=== PATIENT | female | born 1985 | race Caucasian/White ===

== ENCOUNTER 2023-02-24 04:54 | Outpatient (CLI) | payer MEDICARE, MEDICAID, SELFPAY ==
[2023-02-24 13:45] LABS: Hemoglobin A1C 8.9 % (<5.7)
[2023-02-24 14:04] LABS: ALT 48 U/L (14-59); AST 43 U/L (15-37); Albumin 3.4 g/dL (3.4-5.0); Alkaline Phosphatase 67 U/L (46-116); Anion Gap 8.9 mmol/L (3-11); BUN 14 mg/dL (7-18); Bilirubin, Total 0.4 mg/dL (0.2-1.0); CO2 29.1 mmol/L (21.0-32.0); CREATININE 0.8 mg/dL (0.55-1.02); Calcium 10.7 mg/dL (8.5-10.1); Calculated LDL 153 mg/dL (<100); Chloride 101 mmol/L (98-107); Cholesterol 238 mg/dL (<200); Estimated GFR 96.06 (mL/min/1.73m2); Glucose 89 mg/dL (74-106); HDL Cholesterol 52 mg/dL (40-60); Potassium 3.9 mmol/L (3.5-5.1); Sodium 139 mmol/L (136-145); Total Protein 8.6 g/dL (6.4-8.2); Triglyceride 168 mg/dL (<150)
[2023-02-24 14:21] LABS: FREE T4 1.35 ng/dL (0.76-1.46)
[2023-02-24 15:05] LABS: COMMENT (LAB VIEW ONLY) < 13.00 mg/dL
== END 2023-02-24 04:55 | disposition home or self-care (01) ==
LOC: LBO 04:56
PROVIDERS: Visit Provider Family Medicine
DX: E11.9 Type 2 diabetes mellitus without complications (principal); E78.5 Hyperlipidemia, unspecified
CPT/HCPCS: 36415; 80053; 80061; 82043; 82570; 83036; 84439; 84443

== ENCOUNTER 2023-05-30 04:03 | Outpatient (CLI) | payer MEDICARE, MEDICAID, SELFPAY ==
[2023-05-30 11:14] LABS: Hemoglobin A1C 8.9 % (<5.7)
[2023-05-30 11:22] LABS: ALT 54 U/L (14-59); AST 40 U/L (15-37); Albumin 3.5 g/dL (3.4-5.0); Alkaline Phosphatase 81 U/L (46-116); BUN 15 mg/dL (7-18); Bilirubin, Total 0.5 mg/dL (0.2-1.0); Calcium 9.8 mg/dL (8.5-10.1); Calculated LDL 235 mg/dL (<100); Chloride 101 mmol/L (98-107); Cholesterol 326 mg/dL (<200); Estimated GFR 73.49 (mL/min/1.73m2); Glucose 63 mg/dL (74-106); HDL Cholesterol 56 mg/dL (40-60); Potassium 3.3 mmol/L (3.5-5.1); Sodium 137 mmol/L (136-145); TSH 1.33 uIU/mL (0.36-3.74); Total Protein 8.9 g/dL (6.4-8.2); Triglyceride 179 mg/dL (<150)
[2023-05-30 11:39] LABS: COMMENT (LAB VIEW ONLY) 225.62 mg/dL; Microalb ug/mg Crea 14.8 ug/mg Cr
== END 2023-05-30 04:04 | disposition home or self-care (01) ==
PROVIDERS: PCP Nurse Practitioner; Visit Provider Family Medicine
DX: E11.9 Type 2 diabetes mellitus without complications (principal)
CPT/HCPCS: 36415; 80053; 80061; 82043; 82570; 83036; 84443

== ENCOUNTER → 2023-09-15 03:43 | Outpatient (CLI) | payer MEDICARE, MEDICAID, SELFPAY ==
--- NOTE | 2023-09-15 08:26 | DI.RAD_ITS ---
Exam(s) XR SHOULDER LT COMPLETE 2+V EXAM: XR SHOULDER LT COMPLETE 2+V CLINICAL HISTORY: bilateral shoulder pain,m25.512. TECHNIQUE: 2D digital imaging was performed. COMPARISON: No exams were available for comparison FINDINGS: Five views. No evidence of fracture or dislocation or abnormal soft tissue calcifications. Subacromial space jd ears unremarkable. There are no degenerative changes in the glenohumeral and AC joints. Bone densit y normal. No osseous lesions Clavicle appears unremarkable. IMPRESSION: No significant radiographic findings in the left shoulder. DATA REPOSITORY: RADIATION DOSE DELIVERED:
--- NOTE | 2023-09-15 08:26 | DI.RAD_ITS ---
Exam(s) XR CERVICAL SPINE COMP 4-5V EXAM: XR CERVICAL SPINE COMP 4-5V CLINICAL HISTORY: bilateral shoulder and neck pain,m54.2. TECHNIQUE: 2D digital imaging was performed. COMPARISON: No exams were available for comparison FINDINGS: Six views. No evidence of fracture, listhesis, nor offset of the spinal laminar line. All the disc spaces exhib it normal height. No Luschka joint osteophytes on the oblique views. No cervical ribs. Surgical cl ips are seen in anterior to the trachea, possibly prior thyroid surgery. There appears to be developmental fusion across the facet joints of C2 and C3 levels. IMPRESSION: No significant acute osseous findings in the cervical spine. No disc space narrowing. There appears to be facet joint fusion at C2-C3 level. DATA REPOSITORY: RADIATION DOSE DELIVERED:
--- NOTE | 2023-09-15 08:26 | DI.RAD_ITS ---
Exam(s) XR SHOULDER RT COMPLETE 2+V EXAM: XR SHOULDER RT COMPLETE 2+V CLINICAL HISTORY: bilateral shoulder pain,m25.511. TECHNIQUE: 2D digital imaging was performed. COMPARISON: CR XR SHOULDER LT COMPLETE 2+V from 09/15/2023 FINDINGS: Five views. No evidence of fracture or dislocation or abnormal soft tissue calcifications. Subacromial space jd ears unremarkable. Glenohumeral and AC joints appear unremarkable. No degenerative changes. Clavic le appears unremarkable. IMPRESSION: No significant osseous findings in the right shoulder. DATA REPOSITORY: RADIATION DOSE DELIVERED:
== END ==
PROVIDERS: PCP Nurse Practitioner; Visit Provider Nurse Practitioner
DX: M25.511 Pain in right shoulder (principal); M25.512 Pain in left shoulder; M54.2 Cervicalgia
CPT/HCPCS: 72050; 73030

== ENCOUNTER → 2023-10-20 02:59 | Outpatient (CLI) | payer MEDICARE, MEDICAID, SELFPAY ==
--- NOTE | 2023-10-20 | DI.US_ITS ---
Exam(s) US PELVIS EXAM: US PELVIS CLINICAL HISTORY: ABNL UTERINE BLEEDING, N93.9, VAGINAL BLEEDING. TECHNIQUE: Transabdominal pelvic ultrasound was performed using standard protocol. The patient decl ined the transvaginal portion of the examination. COMPARISON: No exams were available for comparison FINDINGS: Examination limited by patient body habitus. UTERUS: Position: Anteverted. Size: 7.3 long by 3.9 AP by 4.5 transverse cm Endometrium: 0.7 cm. Normal for patient's menstrual status. Myometrium: Unremarkable. Cervix: Unremarkable. OVARIES: Right: 3.4 x 2.4 x 2.9 cm Cyst or mass: No suspicious cystic or solid masses. Left: 2.9 x 2.2 x 3.0 cm Cyst or mass: No suspicious cystic or solid masses. DOPPLER: Color: Symmetric and uniform flow to both ovaries. CUL-DE-SAC: Free fluid: None. Other: None. IMPRESSION: 1. Transabdominal only examination was performed. The patient declined the transvaginal portion of t he examination. 2. Unremarkable uterus within normal endometrial stripe thickness. 3. Unremarkable bilateral ovaries. DATA REPOSITORY:
== END ==
PROVIDERS: PCP Nurse Practitioner; Visit Provider Physician Assistant Medical
DX: N93.8 Other specified abnormal uterine and vaginal bleeding (principal)
CPT/HCPCS: 76856

== ENCOUNTER 2023-10-20 09:37 | Outpatient (CLI) | payer MEDICARE, MEDICAID, SELFPAY ==
[2023-10-20 09:11] LABS: Abs Immature Grans 0.15 10^3/uL (0.0-0.06); Absolute Basophil Count 0.02 10^3/uL (0.0-0.2); Absolute Eosinophil Count 0.11 10^3/uL (0.0-0.7); Absolute Lymphocyte Count 1.74 10^3/uL (1.2-3.4); Basophils % 0.2 %; Eosinophils % 1.2 %; HCT 21.3 % (36.0-46.0); Immature Grans % 1.7 %; Lymphocytes % 19.3 %; MCH 26.2 pg (27.0-33.0); MCHC 30.5 % (32.0-36.0); MCV 86 fL (80-95); MPV 8.7 fL (8.0-11.0); Monocytes % 6.7 %; Neutrophils % 70.9 %; Nucleated RBC 0.8 % (0.0-0.3); Platelet Count 254 10^3/uL (130-400); RBC 2.48 10^6/uL (3.93-5.22); RDW 16.1 % (11.7-14.6); RDW-SD 48.6 fL; WBC 9.02 10^3/uL (4.4-10.8)
[2023-10-20 09:32] LABS: Diff Comment RBC Morph Reviewed; HGB 6.5 g/dL (11.2-15.7)
[2023-10-20 09:33] LABS: Polychromasia Present
== END 2023-10-20 09:38 | disposition home or self-care (01) ==
LOC: LBO 09:39
PROVIDERS: PCP Nurse Practitioner; Visit Provider Physician Assistant Medical
DX: N93.9 Abnormal uterine and vaginal bleeding, unspecified (principal)
CPT/HCPCS: 36415; 76856; 85025

== ENCOUNTER 2023-10-20 16:19 | Observation (INO) | payer MEDICARE, MEDICAID, SELFPAY ==
[2023-10-20] VITALS (49 sets, daily range): BP systolic 105–170; BP diastolic 59–99; PULSE 103–127; RESP 0–20; TEMP 36.6–37.5; O2SAT 96–100
--- NOTE | 2023-10-20 16:45 | W.ED.GENAD ---
Discharge Plan Discharge Details Chief Complaint: [facility] Primary Care Provider: Jessica Tran ED Provider: Aristeo Arvizu Home Meds and New Rx's Prescriptions: No Action cetirizine [Zyrtec] 10 mg tablet 10 mg PO DAILY PRN Humulin R U-500 (Conc) Kwikpen 500 unit/mL (3 mL) insulin pen 70 unit subcut BID bupropion HCl [Wellbutrin XL] 300 mg tablet extended release 24 hr 300 mg PO QAM Qty: 30 6RF doxepin 6 mg tablet 6 mg PO QHS PRN (Reason: sleep) Qty: 30 6RF Rx Instructions: within 30min of bedtime and not within 3 hours of a meal amlodipine 2.5 mg tablet 2.5 mg PO DAILY Qty: 30 6RF levothyroxine [Synthroid] 200 mcg tablet 200 mcg PO DAILY Qty: 30 6RF rosuvastatin 5 mg tablet 5 mg PO DAILY Qty: 30 6RF cholecalciferol (vitamin D3) 1,250 mcg (50,000 unit) capsule 1,250 mcg PO QWEEK Qty: 12 3RF venlafaxine 75 mg capsule,extended release 24hr 75 mg PO QAM Qty: 84 0RF calcium carbonate 200 mg calcium (500 mg) tablet,chewable 200 mg PO PRN (DME) blood pressure test kit-large [[employer] BP Monitor] Kit See Rx Instructions .Route Qty: 1 0RF Rx Instructions: As directed Mounjaro 2.5 mg/0.5 mL pen injector 2.5 mg subcut QWEEK HPI General Date/Time Provider Initiated Documentation: 10/20/23 16:24. HPI Narrative: 38 year old female with a history of RUE thrombus and recently had chronic Eliquis stopped, anxiety, depression, HTN, GERD, hyperlipidemia, LBP, poorly controlled DM2, metabolic syndrome, PCOS, social phobia, history osteomyelitis lumbar vertebra and thyroid neoplasm s/p thyroidectomy presents with weakness and malaise and vaginal bleeding. Unclear exact time course but it sounds like she has had vaginal bleeding for the last 2 weeks. She says she sometimes goes months without getting a period. She actually stopped Eliquis for old right upper extremity DVT just a few weeks ago as well. She had had the heavy bleeding and had weakness and malaise and went to an outside clinic and found to be anemic. Followed up with her primary who ultimately referred her here. She says the bleeding has stopped dramatically but she still having some light spotting. She has lightheadedness and dizziness and general malaise and weakness. No chest pain or shortness of breath. No abdominal pain. No other bleeding. No black or bloody stools. Denies any other complaints. Related Data Home Medications Medication Instructions Recorded Confirmed amlodipine 2.5 mg tablet 2.5 mg PO DAILY #30 tabs 05/05/23 10/20/23 bupropion HCl 300 mg 24 hr tablet, 300 mg PO QAM #30 tabs 05/05/23 10/20/23 extended release (Wellbutrin XL) calcium carbonate 200 mg PO PRN 05/05/23 10/20/23 cetirizine 10 mg tablet (Zyrtec) 10 mg PO DAILY PRN 05/05/23 10/20/23 doxepin 6 mg tablet 6 mg PO QHS PRN sleep #30 tabs 05/05/23 10/20/23 insulin regular hum U-500 conc 500 70 unit subcut BID 05/05/23 10/20/23 unit/mL(3 mL) subcut pen (Humulin R U-500 (Conc) Insulin Kwikpen) levothyroxine 200 mcg tablet 200 mcg PO DAILY #30 tabs 05/05/23 10/20/23 (Synthroid) rosuvastatin 5 mg tablet 5 mg PO DAILY #30 tabs 05/05/23 10/20/23 blood pressure test kit-large #1 ea 08/02/23 10/20/23 ([employer] Blood Pressure Monitor kit) cholecalciferol (vitamin D3) 1,250 1,250 mcg PO QWEEK #12 caps 09/10/23 10/20/23 mcg (50,000 unit) capsule venlafaxine 75 mg capsule,extended 75 mg PO QAM #84 caps 09/11/23 10/20/23 release 24 hr tirzepatide 2.5 mg/0.5 mL 2.5 mg subcut QWEEK 10/20/23 10/20/23 subcutaneous pen injector (Ha) Previous Rx's Medication Instructions Recorded amlodipine 2.5 mg tablet 2.5 mg PO DAILY #30 tabs 05/05/23 bupropion HCl 300 mg 24 hr tablet, 300 mg PO QAM #30 tabs 05/05/23 extended release (Wellbutrin XL) doxepin 6 mg tablet 6 mg PO QHS PRN sleep #30 tabs 05/05/23 levothyroxine 200 mcg tablet 200 mcg PO DAILY #30 tabs 05/05/23 (Synthroid) rosuvastatin 5 mg tablet 5 mg PO DAILY #30 tabs 05/05/23 blood pressure test kit-large #1 ea 08/02/23 ([employer] Blood Pressure Monitor kit) cholecalciferol (vitamin D3) 1,250 1,250 mcg PO QWEEK #12 caps 09/10/23 mcg (50,000 unit) capsule venlafaxine 75 mg capsule,extended 75 mg PO QAM #84 caps 09/11/23 release 24 hr Allergies Allergy/AdvReac Type Severity Reaction Status Date / Time lisinopril Allergy Mild Other (See Verified 10/20/23 16:36 Comment) metformin Allergy Unknown unknown Verified 10/20/23 16:36 General Stated Complaint: [facility] SAHARA: 3 Review of Systems Constitutional Constitutional: Denies chills, Reports fatigue, Denies fever(s), Denies headache(s), Reports malaise and Reports weakness Eyes Eyes: Denies change in vision ENT Ears, Nose, Mouth, and Throat: Denies headache(s) and Denies odynophagia Cardiovascular Cardiovascular: Denies chest pain and Denies dyspnea Respiratory Respiratory: Denies dyspnea Gastrointestinal Gastrointestinal: Denies abdominal pain, Denies diarrhea, Denies nausea, Denies odynophagia and Denies vomiting Genitourinary Genitourinary: Reports abnormal vaginal bleeding, Denies dysuria, Denies pelvic pain, Denies urinary incontinence, Denies urinary hesitancy, Denies urinary urgency and Denies vaginal discharge Musculoskeletal Musculoskeletal: Denies myalgias Integumentary/Breasts Skin/Breast: Denies changing lesions Neurologic Neurologic: Denies behavioral changes, Denies headache(s) and Reports weakness Psychiatric Psychiatric: Denies behavioral changes Endocrine Endocrine: Reports fatigue and Denies heat intolerance Hematologic/Lymphatic Hematologic/Lymphatic: Denies lymphadenopathy Exam Const General: cooperative Nutritional Appearance: average body habitus Orientation: alert, awake and oriented x3 HENMT Head: normal to inspection Ears: external ears normal Mouth: moist mucous membranes Eyes Pupils: PERRL EOM: EOM intact bilaterally and No nystagmus Neck Neck: full ROM and no tracheal deviation Chest Chest: normal inspection of the chest Resp Auscultation: clear to auscultation bilaterally Cardio Rate: regular rate Rhythm: regular rhythm GI Inspection: normal to inspection Palpation: soft, no guarding, not rigid and nontender Back/Spine/Pelvis Back: No no CVA tenderness Thoracic/Lumbar Spine: thoracic and lumbar spine normal to inspection Skin General skin exam: no rashes or lesions noted Neuro General: patient alert, patient awake and patient oriented x3 Cranial Nerves: CN's II-XI intact bilaterally, PERRL and no nystagmus Cognition: normal cognition Motor: muscle tone normal throughout and strength 5/5 throughout Sensory Exam: no sensory deficits noted Extrem General: normal to inspection Course Vital Signs Vital signs: Vital Signs Temperature 37.2 C 10/20/23 16:25 Pulse 127 H 10/20/23 16:25 Respiratory Rate 14 10/20/23 16:25 Blood Pressure 168/82 H 10/20/23 16:25 Pulse Oximetry 100 10/20/23 16:25 Temperature 37.2 C 10/20/23 16:25 Temperature Source Temporal Artery Scan 10/20/23 16:25 Pulse 127 H 10/20/23 16:25 Respiratory Rate 14 10/20/23 16:25 Blood Pressure 168/82 H 10/20/23 16:25 Blood Pressure Position Sitting 10/20/23 16:25 Pulse Oximetry 100 10/20/23 16:25 Oxygen Delivery Method Room Air 10/20/23 16:25 Oxygen Flow Rate 0 10/20/23 16:25 Pain Level 9 10/20/23 16:25 Comment Pt c/o dizziness and CP; also photophobia 10/20/23 16:25 Medical Decision Making 38-year-old female presents with malaise and vaginal bleeding. Sounds like she has a long history of abnormal vaginal bleeding. Has never developed anemia from her vaginal bleeding but certainly possible now. Will send CBC and type and screen. Will check though I think that this is less likely. No abdominal tenderness or pelvic pain warranting imaging of the abdomen at this time. Will send broad labs to look for electrolyte or metabolic derangements that could be contributing given her long history of poorly controlled diabetes. She is otherwise resting comfortably. May need a blood transfusion. I, Aristeo Arvizu, saw this patient at the end of my shift and have signed out care to the oncoming team pending labs and reevaluation. Quality:SDOH Health Related Social Needs: Health related social needs food insecurity, transpo insecurity Health related social needs details (Z59.82) & (Z59.41 PFSH All Active Problems Anemia (Chronic) Depression (Chronic) Panic disorder (Acute) Sore throat (Acute) Type 2 diabetes mellitus with peripheral neuropathy (Acute) Type 2 diabetes mellitus with hyperglycemia (Acute) Type 2 diabetes mellitus with foot ulcer (Acute) Thyroid neoplasm (Acute) Status post thyroidectomy (Acute) Social phobia, unspecified (Acute) Skin ulcer of left great toe, limited to breakdown of skin (Acute) Skin ulcer of left great toe with fat layer exposed (Acute) Sciatica of right side (Acute) PCOS (polycystic ovarian syndrome) (Acute) Osteomyelitis (Acute) Open wound of left great toe (Acute) Noncompliance with medication regimen (Acute) Chronic ulcer of right foot (Acute) Neuropathy (Acute) Moderate protein-calorie malnutrition (Acute) Metabolic syndrome (Acute) Low back pain with radiation (Acute) Lightheadedness (Acute) Intertrigo (Acute) Impingement syndrome of right shoulder (Acute) Hypo-osmolality and hyponatremia (Acute) Hyperlipidemia (Acute) Homelessness (Acute) Sepsis (Acute) High blood pressure (Chronic) Hemangioma (Acute) GERD without esophagitis (Acute) Essential (primary) hypertension (Acute) Dysphagia (Acute) Diarrhea (Acute) Developmental disorder of scholastic skills, unspecified (Acute) Anxiety and depression (Chronic) Acute embolism and thrombosis of superficial vein of right upper extremity (Acute) Medical History VTE (venous thromboembolism) 10/07/23 [facility] Thyroid mass Otitis media Other specified diseases of upper respiratory tract Neck mass Acute embolism and thrombosis of deep vein of right upper extremity Social History Smoking/Tobacco Use Status: Never Smoking risk assessment performed?: Yes Alcohol Intake: never Drug use: Never Substance use type: does not use Adopted: No Caregiver/Support person: No Foster care: No Household members: none Housing: apartment Number of Children: 0 number of grandchildren: 0 Communication Needs: Corrective Lenses and Cannot Read Education Level: high school Details: special diploma from Do you need help understanding health information?: Always current occupation: [employer] Pets and animals: Yes (2) Pets and animals: cat(s) Sexually active: No Do you think of yourself as: straight/heterosexual Current gender identity: female What is your relationship status?: never How often do you talk on the phone with friends or family?: once per week How often do you get together with friends or relatives?: never Do you belong to any clubs or organized social groups?: no Panel score (0-1 are the most socially isolated patients): 0 Duration: < 15 minutes/day Frequency: 1-2 times per week Seatbelt use: sometimes Helmet use: No Drive intox or ride w/intox company tanker truck driver: No
[2023-10-20 16:57] LABS: BE (Venous) 2 mmol/L (-2-3); HCO3 (Venous) 26 mmol/L (23-28); O2 Sat (Venous) 53 %; TCO2 (Venous) 26 mmol/L (24-29); pCO2 (Venous) 41 mmHg (41-51); pH (Venous) 7.42 (7.31-7.41); pO2 (Venous) 29 mmHg
[2023-10-20 16:58] LABS: Abs Immature Grans 0.16 10^3/uL (0.0-0.06); Absolute Basophil Count 0.02 10^3/uL (0.0-0.2); Absolute Eosinophil Count 0.04 10^3/uL (0.0-0.7); Absolute Lymphocyte Count 1.22 10^3/uL (1.2-3.4); Absolute Monocyte Count 0.51 10^3/uL (0.1-0.8); Absolute Neutrophil Count 7.27 10^3/uL (1.2-6.7); Basophils % 0.2 %; Eosinophils % 0.4 %; Immature Grans % 1.7 %; Lymphocytes % 13.2 %; MCH 26.4 pg (27.0-33.0); MCHC 31.2 % (32.0-36.0); MCV 85 fL (80-95); MPV 8.2 fL (8.0-11.0); Monocytes % 5.5 %; Nucleated RBC 0.8 % (0.0-0.3); Platelet Count 222 10^3/uL (130-400); RBC 2.42 10^6/uL (3.93-5.22); RDW 16.3 % (11.7-14.6); RDW-SD 48.1 fL; WBC 9.22 10^3/uL (4.4-10.8)
[2023-10-20 17:04] LABS: HCT 20.5 % (36.0-46.0); HGB 6.4 g/dL (11.2-15.7)
[2023-10-20 17:12] LABS: PTT Activated 21.4 sec (23.6-32.8); Prothrombin Time 10.5 sec (9.1-11.1)
[2023-10-20 17:13] LABS: Anisocytosis 1+; Diff Comment RBC Morph Reviewed; HCG Qual (Serum) Negative; Polychromasia Present
[2023-10-20 17:18] LABS: ALT 21 U/L (14-59); AST 20 U/L (15-37); Albumin 3.1 g/dL (3.4-5.0); Alkaline Phosphatase 56 U/L (46-116); Anion Gap 9.9 mmol/L (3-11); BUN 16 mg/dL (7-18); Bilirubin, Total 0.4 mg/dL (0.2-1.0); CO2 27.1 mmol/L (21.0-32.0); CREATININE 1.2 mg/dL (0.55-1.02); Chloride 102 mmol/L (98-107); Estimated GFR 58.69 (mL/min/1.73m2); Glucose 181 mg/dL (74-106); Lipase 24 U/L (16-77); Magnesium 1.3 mg/dL (1.8-2.4); Potassium 4.2 mmol/L (3.5-5.1); Sodium 139 mmol/L (136-145); Total Protein 7.3 g/dL (6.4-8.2); Troponin I < 50 ng/L (< or =60)
--- NOTE | 2023-10-20 17:50 | ED.PROG_ITS ---
Date of service: 10/20/23 Time of Service: 17:00 Medical Decision Making MDM: Summary: Patient stated to be bilaterally he who is a woman who is a diabetic who has a right upper extremity DVT is on Eliquis and has been experiencing heavy vaginal bleeding. She is symptomatic and gets short of breath and tired went to her primary care doctor today who did hemoglobin hematocrit and noted that hemoglobin was 6. The bleeding has subsided but she states she is very tired and was sent here for transfusion. Data Review Analysis All the data on this patient was reviewed by me including laboratory and imaging studies as well as bedside studies performed by me Independent review of Studies Imaging Lab: Labs show a very low hemoglobin and hematocrit Risk Stratification: Patient will need admission for transfusion and also to see what other treatments besides anticoagulation could be done for the DVT. Differential Diagnosis: 1. Acute anemia 2. Dysmenorrhea 3. Anticoagulation 4. Diabetes mellitus 5. Consultants: Dr Parson agree and will admit the patient Shared disposition: Impression: Medical Records Medical records reviewed: Yes I reviewed the patient's medical records. Lab Data Lab results reviewed: Yes I reviewed the patient's lab results. Quality:SDOH Health Related Social Needs: Health related social needs food insecurity, transpo i nsecurity Health related social needs details (Z59.82) & (Z59.41 Sign Out Sign Out Data: Sign Out Comment: vaginal bleeding and dizziness/weakness. Hgb and labs pending. Has reportedly never needed blood transfusion. Last updated by Aristeo Arvizu MD at 10/20/23 17:06 Discharge Plan Disposition Patient Disposition: Admit to [facility] Condition: Stable Discharge Details Clinical Impression: Anticoagulant adverse reaction, Menorrhagia, Anemia Primary Care Provider: Jessica Tran ED Provider: Kadeem Bey Home Meds and New Rx's Prescriptions: No Action cetirizine [Zyrtec] 10 mg tablet 10 mg PO DAILY PRN Humulin R U-500 (Conc) Kwikpen 500 unit/mL (3 mL) insulin pen 70 unit subcut BID bupropion HCl [Wellbutrin XL] 300 mg tablet extended release 24 hr 300 mg PO QAM Qty: 30 6RF doxepin 6 mg tablet 6 mg PO QHS PRN (Reason: sleep) Qty: 30 6RF Rx Instructions: within 30min of bedtime and not within 3 hours of a meal amlodipine 2.5 mg tablet 2.5 mg PO DAILY Qty: 30 6RF levothyroxine [Synthroid] 200 mcg tablet 200 mcg PO DAILY Qty: 30 6RF rosuvastatin 5 mg tablet 5 mg PO DAILY Qty: 30 6RF cholecalciferol (vitamin D3) 1,250 mcg (50,000 unit) capsule 1,250 mcg PO QWEEK Qty: 12 3RF venlafaxine 75 mg capsule,extended release 24hr 75 mg PO QAM Qty: 84 0RF calcium carbonate 200 mg calcium (500 mg) tablet,chewable 200 mg PO PRN (DME) blood pressure test kit-large [[employer] BP Monitor] Kit See Rx Instructions .Route Qty: 1 0RF Rx Instructions: As directed Cedunadelaida 2.5 mg/0.5 mL pen injector 2.5 mg subcut QWEEK
--- NOTE | 2023-10-20 18:41 | W.PM.HP.N ---
Date of service: 10/20/23 Time of Service: 18:41 Assessment and Plan Assessment and plan (1) Vaginal bleeding: Status: Acute Assessment and plan: Symptomatic vaginal bleeding, will admit for transfusion. The DOAC is (was) an obvious contributory factor but this has since been stopped and from patient report it is not needed at this point in any case. The results of pelvic U/S are reassuring as to possible pathological source but probably best to have Ice Guard Tester input and I have asked ER to contact them. History of Present Illness History of Present Illness Chief Complaint: vaginal bleeding Narrative: 38 female with h/o jordi-metrorhaggia, was placed on Eliquis 2 years ago for RUE DVT occurring n the setting of a PICC line during a hospitalization at outside facility. Has remained on the DOAC since even though she states she was told it was only needed for 6 months. Approx 2 weeks ago patient developed heavy menstrual bleeding and stopped the DOAC. Bleeding has continued, though it is now reduced to spotting. Pelvic U/S this morning unremarkable. Was sent for labs and Hct 20 noted. Patient sent to ER for further evaluation. Patient endorses SOB and lightheadedness. Review of Systems Narrative: per HPI PFSH All Active Problems (Updated 10/20/23 @ 18:49 by Ludwig Parson MD) Vaginal bleeding (Acute) Anemia (Chronic) Depression (Chronic) Panic disorder (Acute) Sore throat (Acute) Type 2 diabetes mellitus with peripheral neuropathy (Acute) Type 2 diabetes mellitus with hyperglycemia (Acute) Type 2 diabetes mellitus with foot ulcer (Acute) Thyroid neoplasm (Acute) Status post thyroidectomy (Acute) Social phobia, unspecified (Acute) Skin ulcer of left great toe, limited to breakdown of skin (Acute) Skin ulcer of left great toe with fat layer exposed (Acute) Sciatica of right side (Acute) PCOS (polycystic ovarian syndrome) (Acute) Osteomyelitis (Acute) Open wound of left great toe (Acute) Noncompliance with medication regimen (Acute) Chronic ulcer of right foot (Acute) Neuropathy (Acute) Moderate protein-calorie malnutrition (Acute) Metabolic syndrome (Acute) Low back pain with radiation (Acute) Lightheadedness (Acute) Intertrigo (Acute) Impingement syndrome of right shoulder (Acute) Hypo-osmolality and hyponatremia (Acute) Hyperlipidemia (Acute) Homelessness (Acute) Sepsis (Acute) High blood pressure (Chronic) Hemangioma (Acute) GERD without esophagitis (Acute) Essential (primary) hypertension (Acute) Dysphagia (Acute) Diarrhea (Acute) Developmental disorder of scholastic skills, unspecified (Acute) Anxiety and depression (Chronic) Acute embolism and thrombosis of superficial vein of right upper extremity (Acute) Medical History VTE (venous thromboembolism) 10/07/23 [facility] Thyroid mass Otitis media Other specified diseases of upper respiratory tract Neck mass Acute embolism and thrombosis of deep vein of right upper extremity Social History Smoking/Tobacco Use Status: Never Smoking risk assessment performed?: Yes Alcohol Intake: never Drug use: Never Substance use type: does not use Adopted: No Caregiver/Support person: No Foster care: No Household members: none Housing: apartment Number of Children: 0 number of grandchildren: 0 Communication Needs: Corrective Lenses and Cannot Read Education Level: high school Details: special diploma from Do you need help understanding health information?: Always current occupation: [employer] Pets and animals: Yes (2) Pets and animals: cat(s) Sexually active: No Do you think of yourself as: straight/heterosexual Current gender identity: female What is your relationship status?: never How often do you talk on the phone with friends or family?: once per week How often do you get together with friends or relatives?: never Do you belong to any clubs or organized social groups?: no Panel score (0-1 are the most socially isolated patients): 0 Duration: < 15 minutes/day Frequency: 1-2 times per week Seatbelt use: sometimes Helmet use: No Drive intox or ride w/intox train driver: No Do you feel safe at home: Yes Do you feel safe in your relationship?: Yes Meds Allergies and Home Medications Allergies Allergy/AdvReac Type Severity Reaction Status Date / Time lisinopril Allergy Mild Other (See Verified 10/20/23 16:36 Comment) metformin Allergy Unknown unknown Verified 10/20/23 16:36 Home Medications Medication Instructions Recorded Confirmed Type amlodipine 2.5 mg tablet 2.5 mg PO DAILY #30 tabs 05/05/23 10/20/23 Rx bupropion HCl 300 mg 24 hr tablet, 300 mg PO QAM #30 tabs 12/18/23 06/03/24 Rx extended release (Wellbutrin XL) calcium carbonate 200 mg PO PRN 05/05/23 10/20/23 History cetirizine 10 mg tablet (Zyrtec) 10 mg PO DAILY PRN 05/05/23 10/20/23 History doxepin 6 mg tablet 6 mg PO QHS PRN sleep #30 tabs 05/05/23 10/20/23 Rx insulin regular hum U-500 conc 500 70 unit subcut BID 05/05/23 10/20/23 History unit/mL(3 mL) subcut pen (Humulin R U-500 (Conc) Insulin Kwikpen) levothyroxine 200 mcg tablet 200 mcg PO DAILY #30 tabs 05/05/23 10/20/23 Rx (Synthroid) rosuvastatin 5 mg tablet 5 mg PO DAILY #30 tabs 05/05/23 10/20/23 Rx blood pressure test kit-large #1 ea 08/02/23 10/20/23 Rx ([employer] Blood Pressure Monitor kit) cholecalciferol (vitamin D3) 1,250 1,250 mcg PO QWEEK #12 caps 09/10/23 10/20/23 Rx mcg (50,000 unit) capsule venlafaxine 75 mg capsule,extended 75 mg PO QAM #84 caps 09/11/23 10/20/23 Rx release 24 hr tirzepatide 2.5 mg/0.5 mL 2.5 mg subcut QWEEK 10/20/23 10/20/23 History subcutaneous pen injector (Mounjaro) Exam Narrative Exam Narrative: 130/75, 111, 37.3, 18, 100%. Obvious pallor. HEENT unremarkable; neck supple w/o JVD; lungs clear; heart tachy/regular; abdomen soft and NT; pelvic exam deferred; extremities w/o edema; neuro Ox3, moves all 4s Results Labs 10/20/23 16:48 10/20/23 16:48 Labs: Laboratory Results - last 24 hr 10/20/23 10/20/23 08:30 16:48 WBC 9.22 RBC 2.42 L Hgb 6.4 L* Hct 20.5 L* MCV 85 MCH 26.4 L MCHC 31.2 L RDW 16.3 H Plt Count 222 MPV 8.2 Immature Gran % 1.7 Neutrophils % 79.0 Lymphocytes % 13.2 Monocytes % 5.5 Eosinophils % 0.4 Basophils % 0.2 Nucleated RBC % 0.8 H Absolute Neutrophils 7.27 H Absolute Lymphocytes 1.22 Absolute Monocytes 0.51 Absolute Eosinophils 0.04 Absolute Basophils 0.02 RBC Morphology See Below Polychromasia Present Anisocytosis 1+ PT 10.5 INR 1.0 APTT 21.4 L VBG pH 7.42 H VBG pCO2 41 VBG pO2 29 VBG HCO3 26 VBG Total CO2 26 VBG O2 Saturation 53 VBG Base Excess 2 Sodium 139 Potassium 4.2 Chloride 102 Carbon Dioxide 27.1 Anion Gap 9.9 BUN 16 Creatinine 1.2 H Est GFR (CKD-EPI 2020) 58.69 Glucose 181 H Calcium 9.0 Magnesium 1.3 L Total Bilirubin 0.4 AST 20 ALT 21 Alkaline Phosphatase 56 Troponin I < 50 Total Protein 7.3 Albumin 3.1 L Lipase 24 Serum HCG, Qual Negative ABO/Rh AB Negative Blood Type Recheck AB Negative Cancelled Antibody Screen NEGATIVE Last Vital Signs Temp 37.3 C 10/20/23 18:25 Pulse 111 H 10/20/23 18:25 Resp 18 10/20/23 18:25 BP 130/75 10/20/23 18:25 Pulse Ox 100 10/20/23 18:25 Time Spent Time spent with Patient: 40-54 minutes Time was spent: preparing to see the patient(eg.review tests), obtaining and/or reviewing separately otained hiistory, ordering medications,tests, procedures, referring, communicating with other health ambulatory care coordinator and indepentently interpreting results
[2023-10-20] MEDS: Normal Saline Flush 10 ML SYR IVP (22:02)
[2023-10-20] MEDS: Acetaminophen 325 MG TAB 650 MG PO (22:15)
[2023-10-20] MEDS: Ondansetron 4 MG/2 ML VIAL IVP (22:15)
[2023-10-20 22:33] LABS: Bilirubin Negative (Negative); Blood Large (Negative); Clarity Cloudy (Clear); Glucose Negative (Negative); Ketones Negative (Negative); Leukocyte Esterase Negative (Negative); Nitrite Negative (Negative); Specific Gravity 1.015 (1.005-1.025); Urobilinogen 0.2 mg/dL (Up to 0.2)
[2023-10-20 22:42] LABS: Bacteria Rare HPF (Negative); C & S Indicated? No; Crystals Negative HPF (Negative); Epithelial Cells Few HPF (Negative); Mucus Negative (Negative); RBC >50 HPF (0-2)
[2023-10-20] MEDS: diphenhydrAMINE 25 MG CAP 50 MG PO (23:34)
[2023-10-20] MEDS: Baclofen 10 MG TAB 20 MG PO (23:35)
[2023-10-21 00:20] VITALS: BP 106/65; PULSE 105; RESP 16; TEMP 37.3; O2SAT 97
--- NOTE | 2023-10-21 00:28 | NUR.NOTE ---
Nursing Note: Pt reports itching to face. No rash or hives noted. Denies CP, SOB, or other changes since initiating blood transfusion. Notified CC Justa Hogan RN. paged. New order for PO benadryl x [address] Parson. Per ok to continue transfusion.
[2023-10-21 00:40] VITALS: BP 114/65; PULSE 101; RESP 20; TEMP 37.2; O2SAT 95
[2023-10-21] MEDS: Lactated Ringers 1,000 ML 75 ML IV (00:45)
[2023-10-21] MEDS: MAGNESIUM SULFATE 2 GM/50 ML BAG IVINF (00:45)
[2023-10-21 03:10] VITALS: BP 95/57; PULSE 94; RESP 18; TEMP 37; O2SAT 94
[2023-10-21 04:34] LABS: Abs Immature Grans 0.07 10^3/uL (0.0-0.06); Absolute Basophil Count 0.02 10^3/uL (0.0-0.2); Absolute Eosinophil Count 0.12 10^3/uL (0.0-0.7); Absolute Lymphocyte Count 2.44 10^3/uL (1.2-3.4); Absolute Monocyte Count 0.57 10^3/uL (0.1-0.8); Absolute Neutrophil Count 5.35 10^3/uL (1.2-6.7); Basophils % 0.2 %; Eosinophils % 1.4 %; HCT 26.1 % (36.0-46.0); HGB 8.4 g/dL (11.2-15.7); Immature Grans % 0.8 %; Lymphocytes % 28.5 %; MCH 28.3 pg (27.0-33.0); MCHC 32.2 % (32.0-36.0); MCV 88 fL (80-95); MPV 8.5 fL (8.0-11.0); Monocytes % 6.7 %; Neutrophils % 62.4 %; Nucleated RBC 0.6 % (0.0-0.3); Platelet Count 212 10^3/uL (130-400); RBC 2.97 10^6/uL (3.93-5.22); RDW 16.2 % (11.7-14.6); RDW-SD 50.9 fL; WBC 8.57 10^3/uL (4.4-10.8)
[2023-10-21] MEDS: Levothyroxine 200 MCG TAB PO (05:15)
--- NOTE | 2023-10-21 07:05 | NUR.NOTE ---
Accessed pt chart to reconcile EKG orders with EKG?s in [facility]. No EKG in [facility], order cancelled. Nursing Note:
[2023-10-21 07:32] VITALS: BP 102/70; PULSE 94; RESP 20; TEMP 36.8; O2SAT 97
[2023-10-21] MEDS: Acetaminophen 325 MG TAB 650 MG PO (07:52)
[2023-10-21] MEDS: Cetirizine 10 MG TAB PO (07:53)
[2023-10-21] MEDS: Normal Saline Flush 10 ML SYR IVP (07:53)
[2023-10-21] MEDS: Venlafaxine 75 MG CAPCR PO (07:53)
[2023-10-21] MEDS: buPROPion-XL 150 MG TABCR 300 MG PO (07:53)
[2023-10-21] MEDS: Baclofen 10 MG TAB 20 MG PO (07:53)
[2023-10-21 08:55] LABS: HCT 25.5 % (36.0-46.0)
[2023-10-21 09:38] VITALS: BP 102/71; BP 103/67; BP 115/69; PULSE 106; PULSE 95; PULSE 97
--- NOTE | 2023-10-21 09:43 | INITIAL_ITS ---
Date of service: 10/21/23 Time of Service: 09:43 Care Management Initial Assmt Initial Assessment Reason for Hospitalization: vaginal bleeding Functional Status/Living Situation Patient Presentation: Priyanka was sitting up on the side of her bed when CM met with her. She was dressed and announced that she was going to be discharged. She state that she feels better than when she arrived but is not back to normal. Priyanka talked about her long standing depression and the fact that even though she is on medication, it does not seem to be helping enough with her anxiety. She recalled a recent episode where she woke up feeling panicky and actually had physical discomfort in her chest accompanied by dyspnea that lasted into the next day. Priyanka was unable to identify who prescribes her medications or who she sees for therapy but informed CM that Micki Zheng is helping to set her up with a new trherapist. On admission, Priyanka identified food insecurity as an issue and stated that she would like to try Meals on Wheels again. She also has issues with transportation, but stated that is because she is a recluse who doesn't leave her home. A referral was sent to [facility] for Meals on Wheels. Town of Residence: [facility] Resides with: Alone Significant Other/Family: Out of area ( Hector lives in [place] and doesn't see Priyanka every day as he used to) Caregiver/Guardian: Micki Zheng, Environmental Field Professional Natural Supports: Significant other/ Hector Employment Status: Disabled Instrumental Activities of Daily Living (ADLs): Independent Activities/Hobbies/SocialSupport: used to do a lot of crafts but unable to concentrate lately Medications Medication Management: No Issues/Barriers identified Advance Directives Advance Directives: Do you have an Advance Directive: N 05/05/23 13:42 AD On File at [facility]: N 05/05/23 13:42 Date Asked 10/20/23 10/20/23 09:39 AD Date Reviewed COLST On File at [facility] COLST Date Scanned Code Status Resuscitation Status Full Code Insurance Coverage/Financial Issues Insurance: Medicare Medicaid ACO Member: No Care Team Visit Care Team Role Provider Type Jessica Tran NP Primary Care Provider NURSE PRACTITIONER Daniela Marquez Other Providers REG OCCUPATIONAL THERAPIST Maryse Wood Other Providers PSYCHOLOGIST CHIEF Geetha Mack RDN, [facility] Other Providers LAUNDRY LABORER Roxane Gallego Other Providers LAUNDRY LABORER Juhi Crenshaw Other Providers PSYCHOLOGIST CHIEF InPatient Odell Tomlin Other Providers OTHER Rhoda Akbar RN Other Providers PSYCHOLOGIST CHIEF Matthew Arauz RDN Other Providers LAUNDRY LABORER Cary Yuan Other Providers UNHAIRING INSPECTOR [place] Other Providers PSYCHOLOGIST CHIEF Kadeem Bey MD Emergency Provider [facility] STAFF PHYSICIAN Ludwig Parson MD Admit Provider [facility] STAFF PHYSICIAN Attending Provider Discharge Potential Discharge Needs: Imaging/labs, PCP F/U Appt and Other (Gynecology) Anticipated Barriers to Discharge: None Identified Patient/Family Education Needs: Review discharge instructions, discuss Ask Me Three Transportation: Private vehicle Plan: Anticipate Priyanka will be discharged home with a resumption of her community supports ands services. A referral was sent to [facility] for Meals on Wheels. Priyanka will follow up with her PCP, Federal Appellate Law Clerk and plan of care and transport with family vs RCT. CM will follow and continue to support discharge planning needs. PFSH All Active Problems (Updated 10/20/23 @ 19:18 by Kadeem Bey MD) Anemia (Chronic) Menorrhagia (Acute) Anticoagulant adverse reaction (Acute) Vaginal bleeding (Acute) Anemia (Chronic) Depression (Chronic) Panic disorder (Acute) Sore throat (Acute) Type 2 diabetes mellitus with peripheral neuropathy (Acute) Type 2 diabetes mellitus with hyperglycemia (Acute) Type 2 diabetes mellitus with foot ulcer (Acute) Thyroid neoplasm (Acute) Status post thyroidectomy (Acute) Social phobia, unspecified (Acute) Skin ulcer of left great toe, limited to breakdown of skin (Acute) Skin ulcer of left great toe with fat layer exposed (Acute) Sciatica of right side (Acute) PCOS (polycystic ovarian syndrome) (Acute) Osteomyelitis (Acute) Open wound of left great toe (Acute) Noncompliance with medication regimen (Acute) Chronic ulcer of right foot (Acute) Neuropathy (Acute) Moderate protein-calorie malnutrition (Acute) Metabolic syndrome (Acute) Low back pain with radiation (Acute) Lightheadedness (Acute) Intertrigo (Acute) Impingement syndrome of right shoulder (Acute) Hypo-osmolality and hyponatremia (Acute) Hyperlipidemia (Acute) Homelessness (Acute) Sepsis (Acute) High blood pressure (Chronic) Hemangioma (Acute) GERD without esophagitis (Acute) Essential (primary) hypertension (Acute) Dysphagia (Acute) Diarrhea (Acute) Developmental disorder of scholastic skills, unspecified (Acute) Anxiety and depression (Chronic) Acute embolism and thrombosis of superficial vein of right upper extremity (Acute) Medical History VTE (venous thromboembolism) 10/07/23 [facility] Thyroid mass Otitis media Other specified diseases of upper respiratory tract Neck mass Acute embolism and thrombosis of deep vein of right upper extremity Social History Smoking/Tobacco Use Status: Never Smoking risk assessment performed?: Yes Alcohol Intake: never Drug use: Never Substance use type: does not use Adopted: No Caregiver/Support person: No Foster care: No Household members: none Housing: apartment Number of Children: 0 number of grandchildren: 0 Communication Needs: Corrective Lenses and Cannot Read Education Level: high school Details: special diploma from Do you need help understanding health information?: Always current occupation: [employer] Pets and animals: Yes (2) Pets and animals: cat(s) Sexually active: No Do you think of yourself as: straight/heterosexual Current gender identity: female What is your relationship status?: never How often do you talk on the phone with friends or family?: once per week How often do you get together with friends or relatives?: never Do you belong to any clubs or organized social groups?: no Panel score (0-1 are the most socially isolated patients): 0 Duration: < 15 minutes/day Frequency: 1-2 times per week Seatbelt use: sometimes Helmet use: No Drive intox or ride w/intox trash truck driver: No Do you feel safe at home: Yes Do you feel safe in your relationship?: Yes SDOH(Care Management) Screening Will the Patient Participate in the Screening?: Yes Do you worry about having a steady place to live?: no Problems where you live: no known problems In the past 12 months, have you had to go without electric, gas, oil or water in your home?: no Have you or anyone in your house had to go without enough food to eat?: yes Has lack of transportation kept you from medical appointments or from doing things needed for daily living?: yes Has anyone in your support network made you feel unsafe for any reason?: no Health Related Social Needs Health related social needs: food insecurity(Z59.41) and transportation insecurity(Z59.82) Health related social needs details: pt homebound r/t social anxiety Interventions Care Management Referrals: [facility] (for [facility])
--- NOTE | 2023-10-21 10:06 | W.PM.DS.N ---
Date of service: 10/21/23 Time of Service: 10:00 DS: Diagnosis Discharge Diagnosis (1) Vaginal bleeding: Status: Acute Discharge Plan Disposition Patient Disposition: Home W/Home Health Services Condition: Improving Discharge Details Reason For Visit: vaginal bleeding Admit Date/Time: 10/20/23 18:54 Admit Provider: Ludwig Parson Attending Provider: Ludwig Parson Primary Care Provider: Jessica Tran Hospital Course Hospital Course: This 38-year-old female patient with a past medical history of mental?metrorrhagia, received Eliquis 2 years ago due to right upper extremity deep vein thrombosis in the setting of a PICC line at another facility. Eliquis was stopped recently. The patient past medical history also include anxiety, depression, hypertension, gastroesophageal reflux disease, hyperlipidemia, polycystic ovarian syndrome, poorly controlled diabetes type 2, metabolic syndrome, social phobia, a history of osteomyelitis of the lumbar vertebrae and thyroidectomy d/t thyroid neoplasm. The patient reported heavy bleeding since October 02, 2023 after using a colon colon cleansing mix. She was referred to the emergency room status post follow-up with her primary care provider after visiting the urgent care practitioner who found her to be anemic. The workup in the ED showed an H&H of 6.4 and 20.5, other labs were unremarkable. The patient refused the transvaginal ultrasound. Trans-abdominal ultrasound showed an unremarkable uterus with normal endometrial stripe thickness and unremarkable bilateral ovaries. The patient received 2 units of packed red blood cells. H&H is now 8.4 & 26.1 ; hematocrit stayed stable at 25.5 this morning. The patient reports less bleeding. Send report showed no soiling of blood after 30 minutes and abdominal exam. The patient reported feeling dizzy when getting into a standing position but orthostatic vital signs are negative. As per patient report, dizziness seems to be chronic as she reported previous episodes. Gynecology had recommended progestin on admission, but deemed unnecessary as bleeding has subsided. The patient has a follow-up appointment on October 26 with women's health. The patient will also have to follow-up with her primary care practitioner within 7 days of discharge. The patient will have CBC to be completed on Friday. Physical therapy recommendations are for patient to go home with home health physical therapy. The patient will continue other services that she had prior to admission . Discussed with Dr. Hines Home Meds and New Rx's Prescriptions: New docusate sodium 100 mg capsule 100 mg PO BID Qty: 60 0RF Continued cetirizine [Zyrtec] 10 mg tablet 10 mg PO DAILY bupropion HCl [Wellbutrin XL] 300 mg tablet extended release 24 hr 300 mg PO QAM Qty: 30 6RF doxepin 6 mg tablet 6 mg PO QHS PRN (Reason: sleep) Qty: 30 6RF Rx Instructions: within 30min of bedtime and not within 3 hours of a meal amlodipine 2.5 mg tablet 2.5 mg PO DAILY Qty: 30 6RF levothyroxine [Synthroid] 200 mcg tablet 200 mcg PO DAILY Qty: 30 6RF rosuvastatin 5 mg tablet 5 mg PO DAILY Qty: 30 6RF cholecalciferol (vitamin D3) 1,250 mcg (50,000 unit) capsule 1,250 mcg PO QWEEK Qty: 12 3RF venlafaxine 75 mg capsule,extended release 24hr 75 mg PO QAM Qty: 84 0RF calcium carbonate 200 mg calcium (500 mg) tablet,chewable 200 mg PO PRN (DME) blood pressure test kit-large [Chinese Whispers Musicuch BP Monitor] Kit See Rx Instructions .Route Qty: 1 0RF Rx Instructions: As directed Mounjaro 2.5 mg/0.5 mL pen injector 2.5 mg subcut QWEEK baclofen 20 mg tablet 20 mg PO TID Changed Humulin R U-500 (Conc) Kwikpen 500 unit/mL (3 mL) insulin pen 60 unit subcut BID Qty: 0 0RF Discharge Instructions Stand Alone Forms: Nursing Discharge Form Referrals: Rosa Arvizu NP [NURSE PRACTITIONER] - 10/27/23 3:00 pm Jessica Tran NP [Primary Care Provider] - (Message left with office to call you and make a follow up appointment. If you do not hear back from them today please call tomorrow to make appointment. ) Activity:: Activity as Tolerated Equipment/Supplies:: Walker Diet:: heart healthy diabetic Discharge Orders Discharge Orders: Discharge Order (Routine); Ordered 10/21/23 Ordered By: Lucy Jessica Other Ambulatory Orders: Complete Blood Count w/Diff (Routine) Timeframe: 20231024 Facility: [facility] - Location: Laboratory Outpatient - [facility] Ordered By: Lucy Jessica DS: Summary Time Spent with Patient providing and/or coordinating discharge services: Greater than 30 minutes Status at Discharge Functional status at discharge: uses cane/walker Overall status at discharge: patient is progressing back to baseline Mental Status: mental status grossly normal Speech and Movement: speech and movement normal and pressured speech Mood: congruent mood Affect: normal affect Quality:SDOH Health Related Social Needs: Health related social needs food insecurity, transpo insecurity Health related social needs details pt homebound r/t social anxiety Health related social needs details: pt homebound r/t social anxiety Exam Narrative Exam Narrative: Constitutional The patient is sitting in bed comfortable without acute distress and has obese body habitus HENMT: Facial structures with normal appearance Neuro: No neurological focal deficit Resp:Clear lung bilaterally Cardio: regular rhythm, S1, S2 GI: Abdomen is not distended, soft and non tender, no mass felt on palpation : Negative Costovertebral angle tenderness Back/spine/Pelvis: upper back tenderness at old surgical scar site Integumentary: skin seems to have been pick on right lower abd, patient reports scratches from her cats Psych: RASS 0, congruent mood and normal affect. Psych Mental Status: mental status grossly normal Speech and Movement: speech and movement normal and pressured speech Mood: congruent mood Affect: normal affect DS: Data Vitals/I&O Vitals and I&O: Vital Signs Temperature 36.8 C 10/21/23 07:32 Temperature Source Tympanic 10/21/23 07:32 Pulse 95 H 10/21/23 09:38 Pulse Rhythm Regular 10/21/23 08:52 Pulse 104 H 10/20/23 20:30 Respiratory Rate 20 10/21/23 07:32 Respiratory Effort Normal, Non-Labored 10/21/23 08:52 Respiratory Depth Normal 10/21/23 08:52 Respiratory Pattern Normal 10/21/23 08:52 Blood Pressure 115/69 10/21/23 09:38 Blood Pressure Mean 111 10/20/23 20:30 Blood Pressure Position Supine 10/20/23 17:22 Pulse Oximetry 97 10/21/23 07:32 Oxygen Delivery Method Room Air 10/21/23 07:32 Oxygen Flow Rate 0 10/21/23 07:32 Pain Level 7 10/21/23 07:52 Comment reports DANIEL, chest pain, shooting pains in bilateral arms, generalized aching 10/20/23 20:56 Intake & Output 10/20/23 10/20/23 10/21/23 11:59 23:59 11:59 Intake Total 520 / 520 1000 / 1000 Output Total 300 / 300 450 / 450 Balance 220 / 220 550 / 550 Weight 104.326 kg Intake: IV 20 / 20 Oral 500 / 500 Blood Product 500 / 500 500 / 500 Rbc Leuko Reduced Unit 500 / 500 [id number] Rbc Leuko Reduced Unit 500 / 500 [id number] Output: Urine 300 / 300 450 / 450 Other: Urine Color Dark Marianela Bright Red Urine Appearance Cloudy Clots Urine Odor Normal Normal Voiding Methods Toilet Toilet Data Completed and Pending Labs on day of discharge: Labs from last 24 hours 10/21/23 10/21/23 10/20/23 08:45 04:23 21:40 WBC 8.57 RBC 2.97 L Hgb 8.4 L D Hct 25.5 L 26.1 L MCV 88 MCH 28.3 MCHC 32.2 RDW 16.2 H Plt Count 212 MPV 8.5 Immature Gran % 0.8 Neutrophils % 62.4 Lymphocytes % 28.5 Monocytes % 6.7 Eosinophils % 1.4 Basophils % 0.2 Nucleated RBC % 0.6 H Absolute Neutrophils 5.35 Absolute Lymphocytes 2.44 Absolute Monocytes 0.57 Absolute Eosinophils 0.12 Absolute Basophils 0.02 RBC Morphology Polychromasia Anisocytosis PT INR APTT VBG pH VBG pCO2 VBG pO2 VBG HCO3 VBG Total CO2 VBG O2 Saturation VBG Base Excess Sodium Potassium Chloride Carbon Dioxide Anion Gap BUN Creatinine Est GFR (CKD-EPI 2020) Glucose Calcium Magnesium 2.0 Total Bilirubin AST ALT Alkaline Phosphatase Troponin I Total Protein Albumin Lipase Serum HCG, Qual Urine Color Yellow Urine Clarity Cloudy Urine pH 7.0 Ur Specific [place] 1.015 Urine Protein 30 H Urine Ketones Negative Urine Blood Large H Urine Nitrite Negative Urine Bilirubin Negative Urine Urobilinogen 0.2 Ur Leukocyte Esterase Negative Urine RBC >50 H Urine WBC 3-5 Ur Epithelial Cells Few Urine Crystals Negative Urine Bacteria Rare Urine Mucus Negative Ur Culture Indicated? No Urine Glucose Negative ABO/Rh Blood Type Recheck Antibody Screen Crossmatch 10/20/23 10/20/23 16:48 08:30 WBC 9.22 RBC 2.42 L Hgb 6.4 L* Hct 20.5 L* MCV 85 MCH 26.4 L MCHC 31.2 L RDW 16.3 H Plt Count 222 MPV 8.2 Immature Gran % 1.7 Neutrophils % 79.0 Lymphocytes % 13.2 Monocytes % 5.5 Eosinophils % 0.4 Basophils % 0.2 Nucleated RBC % 0.8 H Absolute Neutrophils 7.27 H Absolute Lymphocytes 1.22 Absolute Monocytes 0.51 Absolute Eosinophils 0.04 Absolute Basophils 0.02 RBC Morphology See Below Polychromasia Present Anisocytosis 1+ PT 10.5 INR 1.0 APTT 21.4 L VBG pH 7.42 H VBG pCO2 41 VBG pO2 29 VBG HCO3 26 VBG Total CO2 26 VBG O2 Saturation 53 VBG Base Excess 2 Sodium 139 Potassium 4.2 Chloride 102 Carbon Dioxide 27.1 Anion Gap 9.9 BUN 16 Creatinine 1.2 H Est GFR (CKD-EPI 2020) 58.69 Glucose 181 H Calcium 9.0 Magnesium 1.3 L Total Bilirubin 0.4 AST 20 ALT 21 Alkaline Phosphatase 56 Troponin I < 50 Total Protein 7.3 Albumin 3.1 L Lipase 24 Serum HCG, Qual Negative Urine Color Urine Clarity Urine pH Ur Specific [place] Urine Protein Urine Ketones Urine Blood Urine Nitrite Urine Bilirubin Urine Urobilinogen Ur Leukocyte Esterase Urine RBC Urine WBC Ur Epithelial Cells Urine Crystals Urine Bacteria Urine Mucus Ur Culture Indicated? Urine Glucose ABO/Rh AB Negative Blood Type Recheck Cancelled AB Negative Antibody Screen NEGATIVE Crossmatch See Detail PFSH All Active Problems (Updated 10/20/23 @ 19:18 by Kadeem Bey MD) Anemia (Chronic) Menorrhagia (Acute) Anticoagulant adverse reaction (Acute) Vaginal bleeding (Acute) Anemia (Chronic) Depression (Chronic) Panic disorder (Acute) Sore throat (Acute) Type 2 diabetes mellitus with peripheral neuropathy (Acute) Type 2 diabetes mellitus with hyperglycemia (Acute) Type 2 diabetes mellitus with foot ulcer (Acute) Thyroid neoplasm (Acute) Status post thyroidectomy (Acute) Social phobia, unspecified (Acute) Skin ulcer of left great toe, limited to breakdown of skin (Acute) Skin ulcer of left great toe with fat layer exposed (Acute) Sciatica of right side (Acute) PCOS (polycystic ovarian syndrome) (Acute) Osteomyelitis (Acute) Open wound of left great toe (Acute) Noncompliance with medication regimen (Acute) Chronic ulcer of right foot (Acute) Neuropathy (Acute) Moderate protein-calorie malnutrition (Acute) Metabolic syndrome (Acute) Low back pain with radiation (Acute) Lightheadedness (Acute) Intertrigo (Acute) Impingement syndrome of right shoulder (Acute) Hypo-osmolality and hyponatremia (Acute) Hyperlipidemia (Acute) Homelessness (Acute) Sepsis (Acute) High blood pressure (Chronic) Hemangioma (Acute) GERD without esophagitis (Acute) Essential (primary) hypertension (Acute) Dysphagia (Acute) Diarrhea (Acute) Developmental disorder of scholastic skills, unspecified (Acute) Anxiety and depression (Chronic) Acute embolism and thrombosis of superficial vein of right upper extremity (Acute) Medical History VTE (venous thromboembolism) 10/07/23 [facility] Thyroid mass Otitis media Other specified diseases of upper respiratory tract Neck mass Acute embolism and thrombosis of deep vein of right upper extremity Social History Smoking/Tobacco Use Status: Never Smoking risk assessment performed?: Yes Alcohol Intake: never Drug use: Never Substance use type: does not use Adopted: No Caregiver/Support person: No Foster care: No Household members: none Housing: apartment Number of Children: 0 number of grandchildren: 0 Communication Needs: Corrective Lenses and Cannot Read Education Level: high school Details: special diploma from Do you need help understanding health information?: Always current occupation: [employer] Pets and animals: Yes (2) Pets and animals: cat(s) Sexually active: No Do you think of yourself as: straight/heterosexual Current gender identity: female What is your relationship status?: never How often do you talk on the phone with friends or family?: once per week How often do you get together with friends or relatives?: never Do you belong to any clubs or organized social groups?: no Panel score (0-1 are the most socially isolated patients): 0 Duration: < 15 minutes/day Frequency: 1-2 times per week Seatbelt use: sometimes Helmet use: No Drive intox or ride w/intox waste collection driver: No Do you feel safe at home: Yes Do you feel safe in your relationship?: Yes Time Spent with Patient Time Spent with Patient: >85 minutes Time was spent: preparing to see the patient(eg.review tests), obtaining and/or reviewing separately otained hiistory, ordering medications,tests, procedures, referring, communicating with other health direct care provider, indepentently interpreting results, counseling the patient and care coordination
--- NOTE | 2023-10-21 10:43 | PT.INIE ---
PT Notes Visit Reasons: vaginal bleeding Physical Therapy Inpatient Initial Evaluation Date: 10/21/2023 Referring Doctor: Ludwig Parson MD PT Orders: PT CONSULT: Safety Consult for D/C Precautions: Fall. Standard. Activity as tolerated. Patient Profile/Admitting Diagnosis: Priyanka is a 38-year-old female with past medical history significant for right DVT 2 years ago and had been placed on Eliquis until 3 weeks ago, low back pain, poorly controlled DM, and osteomyelitis of lumbar vertebrae who presented to the ED on 10/20/2023 due to vaginal bleeding, generalized weakness, and fatigue. Patient is admitted for management of vaginal bleeding PMHX: All Active Problems (Updated 10/20/23 @ 18:49 by Ludwig Parson MD) Vaginal bleeding (Acute) Anemia (Chronic) Depression (Chronic) Panic disorder (Acute) Sore throat (Acute) Type 2 diabetes mellitus with peripheral neuropathy (Acute) Type 2 diabetes mellitus with hyperglycemia (Acute) Type 2 diabetes mellitus with foot ulcer (Acute) Thyroid neoplasm (Acute) Status post thyroidectomy (Acute) Social phobia, unspecified (Acute) Skin ulcer of left great toe, limited to breakdown of skin (Acute) Skin ulcer of left great toe with fat layer exposed (Acute) Sciatica of right side (Acute) PCOS (polycystic ovarian syndrome) (Acute) Osteomyelitis (Acute) Open wound of left great toe (Acute) Noncompliance with medication regimen (Acute) Chronic ulcer of right foot (Acute) Neuropathy (Acute) Moderate protein-calorie malnutrition (Acute) Metabolic syndrome (Acute) Low back pain with radiation (Acute) Lightheadedness (Acute) Intertrigo (Acute) Impingement syndrome of right shoulder (Acute) Hypo-osmolality and hyponatremia (Acute) Hyperlipidemia (Acute) Homelessness (Acute) Sepsis (Acute) High blood pressure (Chronic) Hemangioma (Acute) GERD without esophagitis (Acute) Essential (primary) hypertension (Acute) Dysphagia (Acute) Diarrhea (Acute) Developmental disorder of scholastic skills, unspecified (Acute) Anxiety and depression (Chronic) Acute embolism and thrombosis of superficial vein of right upper extremity (Acute) Medical History VTE (venous thromboembolism) 10/07/23 [facility] VascularThyroid mass Otitis media Other specified diseases of upper respiratory tract Neck mass Acute embolism and thrombosis of deep vein of right upper extremity Social History/Home Situation: Patient has been on disability. Lives alone in an apartment with no stairs. Wandy? works in [place] and has been remotely assisting patient with her medication intake. Independent with all aspects of ADLs prior to surgery. Uses online ordering for her grocery shopping at the [employer]. Right [facility] CT for all doctors appointments. Equipment Owned/DME: None Subjective: Much improved compared to yesterday. Agreeable to trying out walking in the hallway. Hopeful to go home when medically cleared. Has chroinc low back pain. Objective: General Observation: Resting in bed. Mental Status: Alert and oriented as to person, place, time, and purpose. Able to pay attention, focus, and respond appropriately. Pain: Minimal pain in lower abdominal and perineal area Vital Signs: Vital signs after her ambulation activity 1 2380/83 mmHg, 100% SaO2 on RA, 100 bpm ROM: Right Upper Extremity: Shoulder Flexion WFL. Shoulder abduction WFL. Elbow flexion WFL. Wrist flexion WFL. Functional opening and closing of hand WFL. Left Upper Extremity: Shoulder Flexion WFL. Shoulder abduction WFL. Elbow flexion WFL. Wrist flexion WFL. Functional opening and closing of hand WFL. Right Lower Extremity: Hip flexion WFL. Hip abduction WFL. Knee flexion WFL. Ankle dorsiflexion WFL. Ankle plantarflexion WFL. Left Lower Extremity: Hip flexion WFL. Hip abduction WFL. Knee flexion WFL. Ankle dorsiflexion WFL. Ankle plantarflexion WFL. Strength: Right Upper Extremity: Shoulder flexors 4/5. Shoulder abductors 4/5. Elbow flexors 4/5. Elbow extensors 4/5. Taxicab Starter strong. Left Upper Extremity: Shoulder flexors 4/5. Shoulder abductors 4/5. Elbow flexors 4/5. Elbow extensors 4/5. Taxicab Starter strong. Right Lower Extremity: Hip flexors 4/5. Hip abductors 4/5. Knee flexors 4/5. Knee extensors 4/5. Ankle dorsiflexors 4/5. Ankle plantarflexors 4/5. Left Lower Extremity: Hip flexors 4/5. Hip abductors 4/5. Knee flexors 4/5. Knee extensors 4/5. Ankle dorsiflexors 4/5. Ankle plantarflexors 4/5. Bed Mobility/Transfers: Rolling independent Supine to sit independent Sit to supine independent Sit to stand independent Stand to sit independent Gait: Facilitated safe and correct performance of level surface ambulation covering a distance of 250 feet without an assistive device requiring only supervision assist with no report of headache, chest pain, and lightheadedness throughout activity. Barbara slower that her baseline but no LOb nor path deviation. Balance: Static Sitting: Normal Dynamic Sitting: Normal Static Standing: Good Dynamic Standing: Good Special Tests: Mobility Limitations Standardized Measure [facility] AM-PAC 6 clicks Basic Mobility Inpatient Short Form: Raw Score: 24 CMS Score: 0% deficit Informed Consent/Education: Patient was instructed in purpose of PT consult and plan of care. Agreeable to proceed with established PT POC to achieve personal goals. Assessment: Patient presents with clinical signs and symptoms consistent with current/admitting diagnoses that have resulted to mobility limitations, gait instability, generalized weakness, and overall ADL decline as demonstrated by the following impairment level findings: 1. Decreased strength to B Ue/LE major muscle groups Impairments are contributing to the following functional limitations: 1. Increased completion time for mobility ADL performance Patient is assessed as a 21685 low complexity based on the following: History: 38-year-old female with past medical history as indicated above Examination: As above Presentation: Stable Decision Makin low complexity Goals: Goals X1 week 1. Independent gait on level surface with use of [] for at least [] feet without report of pain nor dyspnea 2. Independent with home exercise program 3. Normal static and dynamic standing balance/tolerance Plan of Care/Treatment Plan: 1-2x/day, 7 days/week x 1 week. Plan of care has been reviewed with the COMPUTER TECHNOLOGY INSTRUCTOR providing the service under Physical Therapy direction. Initiate Physical Therapy intervention for pain management as needed, strengthening, bed mobility, transfers, gait, stairs, balance training, and use of assistive device. DISCHARGE RECOMMENDATIONS: [] Home with no services [] [X] Home with services. Patient will benefit from home health PT services in order to progress mobility level using least restrictive assistive ambulatory device, assess home safety, identify additional equipment needs, and establish a functional maintenance program that will increase ability of patient to remain at home. [] Home with outpatient PT [] [] SNF for continued rehabilitation [] [] Retirement Care [] [] SNF versus LTC based on ability to participate and progress [] TREATMENT CODE/TIME: 43516 x 24 minutes for 1 unit (10:09?10: 35). Thank you for the opportunity to participate in the care of this patient. Amanda Tinsley PT, DPT, CLT [facility] [place], [place]
--- NOTE | 2023-10-21 10:44 | TELEFU_ITS ---
Date of service: 10/21/23 Time of Service: 10:45 Nutrition Note NOTE: Received routine consult regarding: diabetes education/mgt Tiara is a 38to female admitted for treatment of blood loss anemia. Her PMH is significant nutritionally for DMII with neuropathy, s/p thyroidectomy due to n eoplasm, PCOS, moderate protein-calorie malnutrition, HLD, GERD, HTN, dysphagia, anx/dep. ordered for humulin 40u bid, and insulin aspart at meals on moderate scale. Being discharged on 60 units BID humulin BID. Mounjaro at home 2.5mg qweek as well. Tiara reports she gave up on an RD that she saw in her past. After she was just told to simply follow the Mediterranean diet with no further in struction. She states she lives at home with who is skinny but has a huge sweet tooth and offers tiara sweets often. She report eating only once per day - the last 2 weeks states it is a turkey sandwich on multigrain bread with spinach, tomato, red onion (doesn't eat the whole thing). Has food security concerns and has been meaning to sign up for [place] [facility] program. During food history interview there were multiple examples of nutrition-related knowledge deficits observed. We discussed the benefits of working together in the outpatient setting and she gladly took my card to call and schedule outpatient diabetes education and management to work with her diet and diabetes mgt at home. Time Spent in Nutritional Counseling and Treatment: 15 min
[2023-10-21 11:40] VITALS: BP 104/65; PULSE 101; RESP 18; TEMP 36.9; O2SAT 100
[2023-10-21] MEDS: Insulin Aspart 300 UNITS/3 ML PEN SC (11:46)
[2023-10-21] MEDS: Docusate Sodium 100 MG CAP PO (12:06)
--- NOTE | 2023-10-21 12:19 | PDOC.HHF2F_ITS ---
Home Health Referral Home Health Orders Clinical synopsis of why skilled professionals are needed: This 38-year-old female patient with a past medical history of mental?metrorrhagia, received Eliquis 2 years ago due to right upper extremity deep vein thrombosis in the setting of a PICC line at another facility. Eliquis was stopped recently. The patient past medical history also include anxiety, depression, hypertension, gastroesophageal reflux disease, hyperlipidemia, polycystic ovarian syndrome, poorly controlled diabetes type 2, metabolic syndrome, social phobia, a history of osteomyelitis of the lumbar vertebrae and thyroidectomy d/t thyroid neoplasm. The patient reported heavy bleeding since October 02, 2023 after using a colon colon cleansing mix. She was referred to the emergency room status post follow-up with her primary care provider after visiting the urgent care practitioner who found her to be anemic. The workup in the ED showed an H&H of 6.4 and 20.5, other labs were unremarkable. The patient refused the transvaginal ultrasound. Trans-abdominal ultrasound showed an unremarkable uterus with normal endometrial stripe thickness and unremarkable bilateral ovaries. The patient received 2 units of packed red blood cells. H&H is now 8.4 & 26.1 ; hematocrit stayed stable at 25.5 this morning. The patient reports less bleeding. Send report showed no soiling of blood after 30 minutes and abdominal exam. The patient reported feeling dizzy when getting into a standing position but orthostatic vital signs are negative. As per patient report, dizziness seems to be chronic as she reported previous episodes. Gynecology had recommended progestin on admission, but deemed unnecessary as bleeding has subsided. The patient has a follow-up appointment on October 26 with women's health. The patient will also have to follow-up with her primary care practitioner within 7 days of discharge. The patient will have CBC to be completed on Friday. Physical therapy recommendations are for patient to go home with home health physical therapy. The patient will continue other services that she had prior to admission . Medical diagnosis necessitation home health referral: Symptomatic anemia Physical Therapist: Check all that apply Increase strength & endurance for safe mobility at home: Ordered To design/establish home maintenance program: Ordered Fall reduction therapy program for patient with history of frequent falls: Ordered Home safety evaluation and teaching/gait training including stair management (if applicable): Ordered Better Breathing Program: Ordered Encounter Date and Reason: I certify that a FTF encounter for this patient was performed on October 21, 2023 and that such encounter was related to the primary reason the patient requires home health services. The encounter was conducted in the following manner: * By me as the certifying physician, NAPHTHOL SOAPING MACHINE OPERATOR, PA or * By an inpatient physician, NAPHTHOL SOAPING MACHINE OPERATOR or PA during an inpatient stay who communicated findings to me, Certification And Authentication I certify that I composed the above information based on my clinical judgment relating to this patient's medical condition and, if applicable, clinical findings communicated to me by the NPP or inpatient physician who performed the FTF encounter. Name of Provider that will be monitoring home health services: Jessica Tran
--- NOTE | 2023-10-21 13:25 | PDOC.CMDIS ---
Date of service: 10/21/23 Time of Service: 13:25 LACE Index Scoring Tool Questions: Length of Stay (in days): 1 Was the patient admitted via the E.D.?: Yes Comorbidities: Diabetes w/o Complication and Any Tumor E.D. Visits: 1 Answers: Total Score: 8 Risk of Readmission: Low Risk Care Management Discharge Plan Reason for Hospitalization: Anemia Discharge Plan: Priyanka will be discharged home with a resumption of her community supports ands services. A referral was sent to [facility] for [facility]. Priyanka will follow up with her PCP, Named Account Executive and plan of care and transport with family vs [facility]. Patient/Family Education Needs: Review discharge instructions, discuss Ask Me Three Services Needed at Discharge: Transportation SDOH Health Related Social Needs: Health related social needs food insecurity, transpo insecurity Health related social needs details pt homebound r/t social anxiety Health related social needs: food insecurity(Z59.41) and transportation insecurity(Z59.82) Health related social needs details: pt homebound r/t social anxiety Care Management Referrals: [facility] (for [facility])
--- NOTE | 2023-10-25 12:17 | NUR.NOTE ---
Accessed chart to reconcile if any EKG's were ordered or documented. None to both. Nursing Note:
== END 2023-10-21 12:35 | disposition home health service (06) ==
LOC: ER 19:18 → MS 20:47
PROVIDERS: Student in an Organized Health Care Education/Training Program; Admitting Provider General Practice; Emergency Provider Emergency Medicine Emergency Medical Services; PCP Nurse Practitioner; Visit Provider General Practice
DX: N93.9 Abnormal uterine and vaginal bleeding, unspecified (principal); D64.9 Anemia, unspecified; R42 Dizziness and giddiness; Z79.01 Long term (current) use of anticoagulants; R06.02 Shortness of breath; N94.6 Dysmenorrhea, unspecified; Z79.4 Long term (current) use of insulin; Z79.85 Long-term (current) use of injectable non-insulin antidiabetic drugs; Z86.718 Personal history of other venous thrombosis and embolism; F41.0 Panic disorder [episodic paroxysmal anxiety]; F32.A Depression, unspecified; E11.42 Type 2 diabetes mellitus with diabetic polyneuropathy; E11.65 Type 2 diabetes mellitus with hyperglycemia; E89.0 Postprocedural hypothyroidism; E28.2 Polycystic ovarian syndrome; I10 Essential (primary) hypertension; K21.9 Gastro-esophageal reflux disease without esophagitis; E78.5 Hyperlipidemia, unspecified; F40.10 Social phobia, unspecified; Z79.899 Other long term (current) drug therapy
CPT/HCPCS: 00123; 36415; 36430; 80053; 82805; 83690; 86850; 86900; 86901; 86920; 96365; 96366; 96375; 97161; 99285; J3490; 76856; 81003; 81015; 83735; 84484; 84703; 85014; 85025; 85610; 85730; 99222; 99239; G0378; J1815; J2405; J3475; P9016

== ENCOUNTER 2023-10-24 08:39 | Outpatient (CLI) | payer MEDICARE, MEDICAID, SELFPAY ==
[2023-10-24 08:15] LABS: Abs Immature Grans 0.04 10^3/uL (0.0-0.06); Absolute Basophil Count 0.02 10^3/uL (0.0-0.2); Absolute Eosinophil Count 0.14 10^3/uL (0.0-0.7); Absolute Lymphocyte Count 1.99 10^3/uL (1.2-3.4); Absolute Monocyte Count 0.31 10^3/uL (0.1-0.8); Absolute Neutrophil Count 4.22 10^3/uL (1.2-6.7); Basophils % 0.3 %; Eosinophils % 2.1 %; HGB 9.4 g/dL (11.2-15.7); Immature Grans % 0.6 %; Lymphocytes % 29.6 %; MCH 27.7 pg (27.0-33.0); MCHC 31.3 % (32.0-36.0); MCV 89 fL (80-95); MPV 8.2 fL (8.0-11.0); Monocytes % 4.6 %; Neutrophils % 62.8 %; Platelet Count 216 10^3/uL (130-400); RBC 3.39 10^6/uL (3.93-5.22); RDW 16.1 % (11.7-14.6); RDW-SD 51.7 fL; WBC 6.72 10^3/uL (4.4-10.8)
[2023-10-24 09:28] LABS: Ferritin 56 ng/mL (8-252); Vitamin B12 725 pg/mL (193-986)
== END 2023-10-24 08:40 | disposition home or self-care (01) ==
LOC: LBO 08:39
PROVIDERS: Nurse Practitioner Acute Care; PCP Nurse Practitioner; Visit Provider Nurse Practitioner
DX: L65.9 Nonscarring hair loss, unspecified; D64.9 Anemia, unspecified
CPT/HCPCS: 36415; 85027; 86850; 86900; 86901; 82607; 82728; 85025

== ENCOUNTER → 2023-10-29 00:44 | Outpatient (CLI) | payer MEDICARE, MEDICAID, SELFPAY ==
--- NOTE | 2023-10-29 07:15 | DI.MAMMO_ITS ---
Exam(s) MAMMO SCREENING EXAM: MAMMO SCREENING CLINICAL HISTORY: screening,z12.39 TECHNIQUE: Mammograms were interpreted according to the usual protocol including computer analysis w Endgame CAD system, tomosynthesis and C-view imaging. COMPARISON: 2021 FINDINGS: The breasts are composed of scattered fibroglandular densities, Breast Density category B. Left breast: No suspicious masses or suspicious microcalcifications are seen. No skin thickening or abnormal axillary lymph nodes are seen. There has been no significant change from prior exams. Right breast: No suspicious calcifications. No skin thickening or abnormal axillary lymph nodes. Th ere is a new circumscribed nodule in the central anterior right breast tissue. Spot compression view s and ultrasound are requested for further evaluation. IMPRESSION: Right breast: BI-RADS Category 0 - Assessment Incomplete: Need additional imaging evaluation Left breast: Yearly screening mammography is recommended. Breast Density - Category B, scattered fibroglandular densities. A negative radiographic report should not delay biopsy if a dominant or clinically suspicious mass is present. Up to ten percent of cancers are not identified on mammography. A negative report may reinforce clinical impression. Adenosis and dense breasts may obscure an underlying neoplasm. False positive reports average 6 to 10%. Patient will receive a letter notifying them of these results.
== END ==
PROVIDERS: PCP Nurse Practitioner; Visit Provider Nurse Practitioner
DX: Z12.31 Encounter for screening mammogram for malignant neoplasm of breast (principal)
CPT/HCPCS: 77063; 77067

== ENCOUNTER → 2023-11-03 07:39 | Outpatient (BNVA) | payer MEDICARE, MEDICAID, SELFPAY | PROVIDERS: PCP Nurse Practitioner; Referring Provider Nurse Practitioner; Visit Provider Nurse Practitioner Adult Health | DX: G56.03 Carpal tunnel syndrome, bilateral upper limbs (principal); G62.9 Polyneuropathy, unspecified | CPT/HCPCS: 95911; 99215 ==

== ENCOUNTER → 2023-11-10 01:55 | Outpatient (CLI) | payer MEDICARE, MEDICAID, SELFPAY ==
--- NOTE | 2023-11-10 | DI.US_ITS ---
Exam(s) MG MAMMO SCREEN CALL BACK UNI US BREAST RT COMPLETE EXAM: MG MAMMO SCREEN CALL BACK UNI and U/S breast RT complete CLINICAL HISTORY: Circumscribed nodule, central anterior rt breast. TECHNIQUE: Craniocaudal and mediolateral oblique Full Field Digital Mammography views of the right b reast with Computer Aided Diagnosis followed by Tomosynthesis and right breast ultrasound. A complet e right breast ultrasound was performed evaluating all 4 quadrants, the retroareolar region and the r ight axilla. COMPARISON: Comparison is made with prior examinations. FINDINGS: Mammography/Tomosynthesis: Masses/Architectural Distortion: The nodule seen in the right breast persist on the additional views. No areas of architectural distortion are seen. Microcalcifictions: No suspicious pleomorphic-type are seen. Skin Thickening/Nipple Retraction: None. Complete right breast US: Echotexture: Normal appearance of the glandular tissue. Shadowing: No suspicious foci. Cyst: There is a cyst at the 1 o'clock position of the right breast 1 cm from the nipple which may co rrespond to the mammographic abnormality. It measures 0.5 cm maximally. No other suspicious cystic or solid masses are seen. Solid lesions: None seen. Ductal dilation: None. IMPRESSION: 1. No evidence of malignancy is noted. 2. A six-month follow-up right mammogram is requested for re-evaluation. 3. The findings were discussed with the patient on the date of the examination. BI-RADS Category 3 - 6 month - Probably Benign Finding: Recommend follow-up imaging in 6 months Breast Density - Category B - Scattered areas of fibroglandular density Breast density Category C or D implies that the patient has dense breast tissue. Dense breast tissue can make it harder to find cancer on a mammogram. Dense breast tissue is also associated with an incr eased risk of breast cancer. This information about the result of the mammogram report was provided to the patient to raise their awareness. Use this report when you speak with the patient about their risks for breast cancer, which includes their family history. At that time, you may recommend additional screening tests (Ultrasoun d or MRI) as these tests may add significant information. A negative radiographic report should not delay biopsy if a dominant or clinically suspicious mass is present. Up to ten percent of cancers are not identified on mammography. A negative report may reinforce clinical impression. Adenosis and dense breasts may obscure an underlying neoplasm. False positive reports average 6 to 10%. Patient will receive a letter notifying them of these results.
== END ==
PROVIDERS: PCP Nurse Practitioner; Visit Provider Nurse Practitioner
DX: R92.8 Other abnormal and inconclusive findings on diagnostic imaging of breast (principal); Z12.31 Encounter for screening mammogram for malignant neoplasm of breast
CPT/HCPCS: 76642; 77063; 77067

== ENCOUNTER 2023-11-19 13:21 | Observation (INO) | payer MEDICARE, MEDICAID, SELFPAY ==
--- NOTE | 2023-11-18 10:04 | DSU.FORM ---
Spoke with Priyanka about the need for a responsible adult to take her home and stay with her until she is appropriately recovered from anesthesia. She reports that she is coming with [facility] and they will be dropping her off at home. I don't have anyone to stay with me. Milka TSE was notified and she will call the patient.
[2023-11-19] VITALS (28 sets, daily range): BP systolic 94–130; BP diastolic 45–87; PULSE 105–118; RESP 11–25; TEMP 36.5–37.2; O2SAT 92–99; BMI 33.7
[2023-11-19] MEDS: Normal Saline Flush 10 ML SYR IV (06:59)
--- NOTE | 2023-11-19 07:14 | ANES.PREOP_ITS ---
General Info Date of Service Date Performed: 11/19/23 Height: 5 ft 9 in Weight: 103.7 kg Body Mass Index (BMI): 33.7 Surgical Procedure: Operation Date: 11/19/23 07:40 Proposed Procedure Side Surgeon p Exam Under Anesthesia, PAP Smear, Endometrial Biopsy Negar Muñoz MD Meds Allergies and Home Medications Allergies Allergy/AdvReac Type Severity Reaction Status Date / Time lisinopril Allergy Mild Other (See Verified 11/19/23 06:26 Comment) metformin Allergy Unknown unknown Verified 11/19/23 06:26 Home Medication Medication Instructions Recorded amlodipine 2.5 mg tablet 2.5 mg PO DAILY #30 tabs 05/05/23 bupropion HCl 300 mg 24 hr tablet, 300 mg PO QAM #30 tabs 05/05/23 extended release (Wellbutrin XL) calcium carbonate 200 mg PO PRN 05/05/23 cetirizine 10 mg tablet (Zyrtec) 10 mg PO DAILY 05/05/23 doxepin 6 mg tablet 6 mg PO QHS PRN sleep #30 tabs 05/05/23 levothyroxine 200 mcg tablet 200 mcg PO DAILY #30 tabs 05/05/23 (Synthroid) rosuvastatin 5 mg tablet 5 mg PO DAILY #30 tabs 05/05/23 cholecalciferol (vitamin D3) 1,250 1,250 mcg PO QWEEK #12 caps 09/10/23 mcg (50,000 unit) capsule baclofen 20 mg tablet 20 mg PO TID 10/20/23 tirzepatide 2.5 mg/0.5 mL 2.5 mg subcut QWEEK 10/20/23 subcutaneous pen injector (Ha) docusate sodium 100 mg capsule 100 mg PO BID #60 caps 10/21/23 insulin regular hum U-500 conc 500 60 unit (0.12 mL) subcut BID #0 mL 10/21/23 unit/mL(3 mL) subcut pen (Humulin R U-500 (Conc) Insulin Kwikpen) venlafaxine 150 mg tablet,extended 150 mg PO QAM #28 tabs 11/13/23 release 24 hr gabapentin 400 mg capsule 300 mg PO BID 11/18/23 Current Visit Medications: Current Medications Generic Name Dose Route Start Last Admin Trade Name Freq PRN Reason Stop Dose Admin IV Miscellaneous Supplies 1 each 11/19/23 06:00 Iv Access IV 12/18/23 23:59 DIRECTED KANDY Sodium Chloride 0 ml 11/19/23 06:00 11/19/23 06:59 Normal Saline Flush 10 Ml Syr IV 12/18/23 23:59 10 ml PRN PRN Administration Sodium Chloride 0 ml 11/19/23 06:00 Normal Saline 10 Ml Vial IJ 12/18/23 23:59 DIRECTED PRN Sterile Water 0 ml 11/19/23 06:00 Water,Injection,Sterile 10 Ml Vial IJ 12/18/23 23:59 DIRECTED PRN PFSH Active Problems Active Problems: Problem Status Onset Code Bilateral carpal tunnel syndrome G56.03 Vertigo R42 Anemia D64.9 Depression F32.A Panic disorder F41.0 Sore throat J02.9 Type 2 diabetes mellitus with peripheral neuropathy E11.42 Type 2 diabetes mellitus with hyperglycemia E11.65 Status post thyroidectomy E89.0 Social phobia, unspecified F40.10 Skin ulcer of left great toe, limited to breakdown of skin L97.521 Skin ulcer of left great toe with fat layer exposed L97.522 Sciatica of right side M54.31 PCOS (polycystic ovarian syndrome) E28.2 Open wound of left great toe S91.102A Chronic ulcer of right foot L97.519 Neuropathy G62.9 Metabolic syndrome E88.810 Low back pain with radiation M54.50 Lightheadedness R42 Intertrigo L30.4 Impingement syndrome of right shoulder M75.41 Hypo-osmolality and hyponatremia E87.1 Hyperlipidemia E78.5 Homelessness Z59.00 Hemangioma D18.00 GERD without esophagitis K21.9 Essential (primary) hypertension I10 Dysphagia R13.10 Diarrhea R19.7 Developmental disorder of scholastic skills, 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 Anxiety and depression F41.9, F32.A Medical History Medical History Menorrhagia 2U PRBC October 2023 Endo bx planned Follicular thyroid cancer (~2021) VTE (venous thromboembolism) 10/07/23 [facility] Otitis media Surgical History Surgical History H/O thyroidectomy (~2021) Tobacco Smoking/Tobacco Use Status: Never Passive smoking exposure: No Second hand exposure: No Alcohol Alcohol Intake: never Substance Use Substance use: Never Substance use type: does not use Prental History History 0 Para Hx # Term Pregnancies Multiple births Hx # Pregnancies Ectopic pregnancies AB induced Hx Number of Living Children AB spontaneous Vital Signs and Lab Results Vital Signs Most Recent Vital Signs in EMR: Most Recent Vital Signs Temp Pulse Resp BP Pulse Ox 36.8 C 118 H 16 120/79 99 11/19/23 06:24 11/19/23 06:24 11/19/23 06:24 11/19/23 06:24 11/19/23 06:24 Point of Care Results Point of Care Results: POC- Test(urine) Negative 11/19/23 06:44 Finger Stick Blood Glucose 130 11/19/23 06:23 Lab Results Blood Type / Crossmatch: Antibody Screen NEGATIVE 10/24/23 Crossmatch See Detail 10/20/23 Complete Blood Count: White Blood Count 6.72 10^3/uL (4.4-10.8) 10/24/23 08:00 Red Blood Count 3.39 10^6/uL (3.93-5.22) L 10/24/23 08:00 Hemoglobin 9.4 g/dL (11.2-15.7) L 10/24/23 08:00 Hematocrit 30.0 % (36.0-46.0) L 10/24/23 08:00 Platelet Count 216 10^3/uL (130-400) 10/24/23 08:00 Complete Metabolic Panel: Sodium 139 mmol/L (136-145) 10/20/23 16:48 Potassium 4.2 mmol/L (3.5-5.1) 10/20/23 16:48 Chloride 102 mmol/L (98-107) 10/20/23 16:48 Carbon Dioxide 27.1 mmol/L (21.0-32.0) 10/20/23 16:48 BUN 16 mg/dL (7-18) 10/20/23 16:48 Creatinine 1.2 mg/dL (0.55-1.02) H 10/20/23 16:48 Est GFR (CKD-EPI 2020) 58.69 (mL/min/1.73m2) 10/20/23 16:48 Magnesium 2.0 mg/dL (1.8-2.4) 10/21/23 04:23 Calcium 9.0 mg/dL (8.5-10.1) 10/20/23 16:48 Albumin 3.1 g/dL (3.4-5.0) L 10/20/23 16:48 Glucose 181 mg/dL (74-106) H 10/20/23 16:48 Liver Function Panel: Alanine Aminotransferase (ALT/SGPT) 21 U/L (14-59) 10/20/23 16: 48 Aspartate Amino Transf (AST/SGOT) 20 U/L (15-37) 10/20/23 16:48 Coagulation Panel: INR International Normalized Ratio 1.0 (0.9-1.1) 10/20/23 16:4 8 Prothrombin Time 10.5 sec (9.1-11.1) 10/20/23 16:48 Activated Partial Thromboplast Time 21.4 sec (23.6-32.8) L 10/20/23 16:48 Cardiac Panel: Troponin I < 50 ng/L (< or =60) 10/20/23 Arterial Blood Gas: No Data to Display Venous Blood Gas: Venous Blood pH 7.42 (7.31-7.41) H 10/20/23 16:48 Venous Blood Partial Pressure O2 29 mmHg 10/20/23 16:48 Venous Blood Partial Pressure CO2 41 mmHg (41-51) 10/20/23 16:4 8 Venous Blood Oxygen Saturation 53 % 10/20/23 16:48 Venous Blood HCO3 26 mmol/L (23-28) 10/20/23 16:48 Venous Blood Base Excess 2 mmol/L (-2-3) 10/20/23 16:48 Venous Blood Total Carbon Dioxide 26 mmol/L (24-29) 10/20/23 16 :48 Pancreas Panel: Lipase 24 U/L (16-77) 10/20/23 16:48 Thyroid Panel: No Data to Display Infectious Disease: No Data to Display Blood Cultures: No Data to Display Toxicology Panel: No Data to Display Panel: Serum HCG, Qualitative Negative 10/20/23 16:48 Anesthesia Assessment and Plan Anesthesia History Personal History: No History of Anesthesia Complications Family History: No Family History of Anesthesia Complications Exercise Tolerance Exercise Tolerance: Metabolic Equivalents>4 Pertinent Negatives Pertinent Negatives: No Symptoms of GERD Cardiac & Pulmonary Exam Cardiac Exam: Normal S1/S2 Heart Sounds Pulmonary Exam: Clear Bilateral Breath Sounds Implantable Cardiac Device Does patient have a Pacemaker or an ICD?: No Airway Exam Known Difficult Airway: No Mallampati Class: 3 Mouth Opening: Normal (> 3cm) Thyromental Distance: Greater than 3 cm Neck Range of Motion: Full ROM Neck Circumference: Thick Teeth Condition: Generalized Poor Dentition ASA Classification ASA Score: ASA 2 Emergency Case?: No NPO Status NPO Status: NPO Clears >2 hours, Solids >8 hours Status Status: Negative HCG Anesthesia Plan Resuscitation Status: Full Code Anesthesia Technique: General Anesthesia Airway Planned: Natural Airway Monitors Used: Standard Monitors
[2023-11-19] MEDS: Lactated Ringers 1,000 ML 125 ML IV ×3 (07:38→17:56)
--- NOTE | 2023-11-19 07:50 | ENDOMET_PTH ---
PATIENT: Priyanka Turner LOC: [id number]#:[id number] AGE/SX: 38/F ROOM: 215 RE11/19/[address]: Negar Muñoz MD : 1985 BED: A DIS: 11/19/2023 SPEC #: [id number] RECD: 11/19/23 12:35 STATUS: RAJ REQ #: [id number] JORGE: 11/19/23 07:[address]: Negar Muñoz DEPT: Surgical Specimen RECD BY: Sima Byrnes ENTERED: 11/19/23 12:36 SP TYPE: Endomet OTHR DR: Jessica Tran APRN Tissues: 1 - ENDOMETRIUM BX/CURRETTE Procedures: GROSS AND MICRO LEVEL 4 Comments: [id number]
--- NOTE | 2023-11-19 07:51 | PAPFT_PTH ---
PATIENT: Priyanka Turner LOC: [id number]#:[id number] AGE/SX: 38/F ROOM: 215 RE11/19/[address]: Negar Muñoz MD : 1985 BED: A DIS: 11/19/2023 SPEC #: [id number] RECD: 11/19/23 13:16 STATUS: RAJ REJared #: [id number] JORGE: 11/19/23 07:[address]: Negar Muñoz DEPT: [facility] Cytology RECD BY: Sima Byrnes ENTERED: 11/19/23 13:17 SP TYPE: PAPFT OTHR DR: Jessica Tran APRN Tissues: 1 - CX/ENDOCX FOR PAP SMEARS Procedures: PAP THIN PREP/[facility] Screening Comments: [id number] (UNSATISFACTORY FOR EVALUATION)
--- NOTE | 2023-11-19 08:09 | W.ANESPOSTOP ---
Postoperative Evaluation Date, Time and Location Date Performed: 11/19/23 Time Performed: 08:09 Patient Location: PACU Vital Signs Most Recent Imported Vital Signs: Most Recent Vital Signs Temp Pulse Resp BP Pulse Ox 36.8 C 118 H 16 120/79 99 11/19/23 06:24 11/19/23 06:24 11/19/23 06:24 11/19/23 06:24 11/19/23 06:24 Pain Score Most Recent Pain Score: Most Recent Pain Score Pain Level 0 11/19/23 06:24 Assessment Mental Status: Awake (Alert & Oriented to Patient Baseline) Airway and Respiratory Function: Patent airway with normal (patient baseline) respiratory exam Cardiovascular Function: Hemodynamically Stable Hydration Status: Adequately Hydrated Nausea & Vomiting: No Nausea or Vomiting Pain: Pt. Denies Any Pain Peripheral Nerve Block: Patient did not receive a nerve block
--- NOTE | 2023-11-19 09:11 | W.PC.ACHO ---
[place] Status: [place] [facility] [place] Language: Preferred Language: Medical / Surgical History (Last Reviewed 11/19/23 @ 06:25 by Agnieszka Corral RN) Menorrhagia Follicular thyroid cancer (~2021) VTE (venous thromboembolism) Otitis media (Last Reviewed 11/19/23 @ 06:25 by Agnieszka Corral RN) H/O thyroidectomy (~2021) Most Recent Vital Signs Temperature 37.2 C 11/19/23 08:57 Pulse 110 H 11/19/23 08:56 Pulse Rhythm Regular 11/19/23 06:24 Pulse 111 H 11/19/23 08:56 Respiratory Rate 20 11/19/23 08:56 Respiratory Depth Normal 11/19/23 06:24 Blood Pressure 107/46 L 11/19/23 08:56 Blood Pressure Mean 59 11/19/23 08:56 Pulse Oximetry 95 11/19/23 08:56 Respiratory End-tidal CO2 38 11/19/23 08:57 Oxygen Delivery Method Room Air 11/19/23 08:57 Oxygen Flow Rate 0 11/19/23 06:24 Pain Level 0 11/19/23 06:24 Allergies lisinopril Allergy (Mild, Verified 11/19/23 06:26) Other (See Comment) coughing metformin Allergy (Unknown, Verified 11/19/23 06:26) unknown Active Medications Generic Name Dose Route Start Last Admin Trade Name Freq PRN Reason Stop Dose Admin Ringer's Solution 1,000 mls @ 125 mls/hr 11/19/23 08:15 11/19/23 08:58 IV 12/19/23 08:14 125 mls/hr INFUSION KANDY Infusion Sodium Chloride 0 ml 11/19/23 06:00 11/19/23 06:59 Normal Saline Flush 10 Ml Syr IV 12/18/23 23:59 10 ml PRN PRN Administration IV IV Catheter Type [Right Peripheral IV Forearm] IV Catheter Gauge [Right 20 Forearm] [id number]-[id number] Documentation Fingerstick Glucose Start: 11/18/23 15:38 Freq: Status: Active Protocol: Activity Type Activity Date Activity User E-sign Co-sign Detail Recorded Client Recorded Date Recorded By Document 11/19/23 06:23 FS [id number] 11/19/23 06:23 FS Fingerstick Glucose Start: 11/19/23 08:17 Freq: Status: Active Protocol: Activity Type Activity Date Activity User E-sign Co-sign Detail Recorded Client Recorded Date Recorded By Document 11/19/23 08:17 SHARONDA MG(3) [id number] 11/19/23 08:17 SHARONDA MG(4) POC Urine Test Start: 11/18/23 15:38 Freq: Status: Active Protocol: Activity Type Activity Date Activity User E-sign Co-sign Detail Recorded Client Recorded Date Recorded By Document 11/19/23 06:44 FS [id number] 11/19/23 06:44 FS Intake and Output - 24 Hour Total 11/11/23 07:00 thru 11/19/23 08:58 Intake Total 400 Balance 400 Weight 103.7 kg Intake: IV 400 Other: Emesis Description None Voiding Methods Toilet v v v v v v v v v Sending and/or Receiving Nurses: Please use comment section below to note any information pertinent to the patient hand-off not included above. Information / Comments: Report received from: Karla Rodriguez
--- NOTE | 2023-11-19 10:44 | W.PM.OP ---
Date of service: 11/19/23 Time of Service: 07:30 Operative Note Operative Note DATE OF PROCEDURE: 11/19/23 PRE-OP DIAGNOSIS: AUB, h/o trauma, cervical cancer screening POST-OP DIAGNOSIS: same PROCEDURE: Exam under anesthesia, pap smear collection, endometrial biopsy SURGEON: Negar Muñoz Refer to Anesthesia Record ESTIMATED BLOOD LOSS: 5 COMPLICATIONS: None Patient was transported to: PACU Patient's condition: stable Indications: Pt has never had a pap smear, that she is aware of. She had a recent episode 1mo ago of very heavy bleeding necessitating a transfusion of 2U prbc. She has a h/o trauma as a child and cannot tolerate a pelvic exam without sedation. Findings: Normal appearing external genitalia, vagina and cervix. Uterus difficult to palpate due to body habitus but no obvious abnormalities noted. Uterus sounded to 10cm. Procedure Description: The patient was made comfortable with conscious sedation and draped in the lithotomy position. A time out was performed. A speculum was placed into the vagina to expose the cervix. The anterior lip was grasped with a single tooth tenaculum and the cervix was clensed with betadyne. The biopsy pipelle was inserted to 10cm and adequate specimen was received with 1 pass. The tenaculum was removed with good hemostasis. The cervix was swabbed with NS to clean off the betadyne. The pap smear was then collected. The speculum was removed from the vagina and the patient was awakened from anesthesia and moved to the PACU in stable condition.
[2023-11-19] MEDS: Baclofen 10 MG TAB 20 MG PO (13:56)
--- NOTE | 2023-11-19 18:32 | W.PM.PROGNOT ---
Date of Service Date of service: 11/19/23 Time of Service: 18:32 Assessment and Plan Assessment and plan (1) Menorrhagia: Assessment and plan: Uneventful surgery and recovery. Will d/c pt to home with f/u in 1-2wks Qualifiers: Menorrhagia type: with irregular cycle Qualified Code(s): N92.1 - Excessive and frequent menstruation with irregular cycle Subjective Subjective Interval history since last seen: Pt is feeling well, ambulating without issues, eating a regular diet and voiding. She is alert and oriented and has a ride home and would like to go tonight. Exam Const General: cooperative, healthy appearing and no acute distress HENMT Head: normocephalic and atraumatic Ears: hearing grossly normal bilaterally Resp Effort & Inspection: normal respiratory effort and able to speak in complete sentences Neuro General: patient alert and patient awake Psych Appearance: grossly normal Mental Status: mental status grossly normal Speech and Movement: speech and movement normal Affect: normal affect Attitude: cooperative Thought Process: normal Thought Content: normal Objective Last Vital Signs Temp 97.7 F 11/19/23 15:18 Pulse 110 H 11/19/23 15:18 Resp 15 11/19/23 15:18 BP 120/79 11/19/23 15:18 Pulse Ox 94 11/19/23 15:18 Time Spent with Patient Time Spent with Patient: <25 minutes Time was spent: counseling the patient
--- NOTE | 2023-11-19 18:35 | W.PM.DSUDISC ---
Date of service: 11/19/23 Time of Service: 18:35 Discharge Plan Disposition Patient Disposition: Home Condition: Stable Discharge Details Admit Date/Time: 11/19/23 13:21 Admit Provider: Negar Muñoz Attending Provider: Negar Muñoz Primary Care Provider: Jessica Tran Hospital Course Hospital Course: Admitted for exam under anesthesia, pap smear and endometrial biopsy. Stayed for the day due to not having a ride home. Home Meds and New Rx's Prescriptions: No Action cetirizine [Zyrtec] 10 mg tablet 10 mg PO DAILY bupropion HCl [Wellbutrin XL] 300 mg tablet extended release 24 hr 300 mg PO QAM Qty: 30 6RF doxepin 6 mg tablet 6 mg PO QHS PRN (Reason: sleep) Qty: 30 6RF Rx Instructions: within 30min of bedtime and not within 3 hours of a meal amlodipine 2.5 mg tablet 2.5 mg PO DAILY Qty: 30 6RF levothyroxine [Synthroid] 200 mcg tablet 200 mcg PO DAILY Qty: 30 6RF rosuvastatin 5 mg tablet 5 mg PO DAILY Qty: 30 6RF cholecalciferol (vitamin D3) 1,250 mcg (50,000 unit) capsule 1,250 mcg PO QWEEK Qty: 12 3RF venlafaxine 150 mg tablet extended release 24hr 150 mg PO QAM Qty: 28 2RF calcium carbonate 200 mg calcium (500 mg) tablet,chewable 200 mg PO PRN gabapentin 400 mg capsule 300 mg PO BID Mounjaro 2.5 mg/0.5 mL pen injector 2.5 mg subcut QWEEK baclofen 20 mg tablet 20 mg PO TID Humulin R U-500 (Conc) Kwikpen 500 unit/mL (3 mL) insulin pen 60 unit subcut BID Qty: 0 0RF docusate sodium 100 mg capsule 100 mg PO BID Qty: 60 0RF Discharge Instructions Activity:: Activity as Tolerated Equipment/Supplies:: No Equipment Needed Diet:: As Tolerated Discharge Orders Discharge Orders: Discharge Order (Routine); Ordered 11/19/23 Ordered By: Negar Muñoz DS: Diagnosis Discharge Diagnosis (1) Menorrhagia:
== END 2023-11-19 19:01 | disposition home or self-care (01) ==
LOC: SUR 15:23 → MS 15:23
PROVIDERS: Admitting Provider Obstetrics & Gynecology; PCP Nurse Practitioner; Visit Provider Obstetrics & Gynecology
PROC: (CPT 58100; principal; 2023-11-19 07:30)
DX: N92.1 Excessive and frequent menstruation with irregular cycle (principal); D64.9 Anemia, unspecified; F32.A Depression, unspecified; E28.2 Polycystic ovarian syndrome; E78.5 Hyperlipidemia, unspecified; E11.42 Type 2 diabetes mellitus with diabetic polyneuropathy; E11.65 Type 2 diabetes mellitus with hyperglycemia; I10 Essential (primary) hypertension; N85.8 Other specified noninflammatory disorders of uterus
CPT/HCPCS: 58100; 88142; 88305; 96360; 96361; G0378; J1100; J1815; J1885; J2001; J2405; J2704

== ENCOUNTER 2023-11-26 02:06 | Outpatient (CLI) | payer MEDICARE, MEDICAID, SELFPAY ==
[2023-11-26 08:58] LABS: Abs Immature Grans 0.03 10^3/uL (0.0-0.06); Absolute Basophil Count 0.03 10^3/uL (0.0-0.2); Absolute Lymphocyte Count 1.54 10^3/uL (1.2-3.4); Absolute Neutrophil Count 5.99 10^3/uL (1.2-6.7); Basophils % 0.4 %; Eosinophils % 1.2 %; HCT 32.8 % (36.0-46.0); HGB 10.3 g/dL (11.2-15.7); Immature Grans % 0.4 %; Lymphocytes % 18.8 %; MCH 25.4 pg (27.0-33.0); MCHC 31.4 % (32.0-36.0); MCV 81 fL (80-95); MPV 8.7 fL (8.0-11.0); Monocytes % 6.1 %; Neutrophils % 73.1 %; Platelet Count 278 10^3/uL (130-400); RBC 4.06 10^6/uL (3.93-5.22); RDW 14.7 % (11.7-14.6); RDW-SD 43.2 fL; WBC 8.19 10^3/uL (4.4-10.8)
[2023-11-26 09:38] LABS: Anion Gap 7.6 mmol/L (3-11); BUN 15 mg/dL (7-18); CO2 29.4 mmol/L (21.0-32.0); Calcium 9.6 mg/dL (8.5-10.1); Chloride 103 mmol/L (98-107); Estimated GFR 73.04 (mL/min/1.73m2); Glucose 306 mg/dL (74-106); Sodium 140 mmol/L (136-145)
== END 2023-11-26 02:07 | disposition home or self-care (01) ==
LOC: LBO 02:06
PROVIDERS: Absent Provider Emergency Medicine; PCP Nurse Practitioner; Referring Provider Emergency Medicine; Visit Provider Emergency Medicine
DX: E11.42 Type 2 diabetes mellitus with diabetic polyneuropathy (principal)
CPT/HCPCS: 36415; 80048; 85025

== ENCOUNTER → 2023-12-16 12:50 | Outpatient (BNVA) | payer MEDICARE, MEDICAID, SELFPAY | PROVIDERS: PCP Nurse Practitioner; Referring Provider Nurse Practitioner; Visit Provider Student in an Organized Health Care Education/Training Program | DX: M75.102 Unspecified rotator cuff tear or rupture of left shoulder, not specified as traumatic (principal); M25.511 Pain in right shoulder; M25.512 Pain in left shoulder | CPT/HCPCS: 99213 ==

== ENCOUNTER 2023-12-22 03:30 | Outpatient (CLI) | payer MEDICARE, MEDICAID, SELFPAY ==
[2023-12-22 15:53] LABS: ALT 18 U/L (14-59); AST 17 U/L (15-37); Albumin 3.1 g/dL (3.4-5.0); Alkaline Phosphatase 62 U/L (46-116); Anion Gap 8.4 mmol/L (3-11); BUN 22 mg/dL (7-18); Bilirubin, Total 0.18 mg/dL (0.2-1.0); CO2 24.6 mmol/L (21.0-32.0); CREATININE 1.1 mg/dL (0.55-1.02); Calcium 9.5 mg/dL (8.5-10.1); Calculated LDL 79 mg/dL (<100); Chloride 105 mmol/L (98-107); Cholesterol 167 mg/dL (<200); Estimated GFR 65.14 (mL/min/1.73m2); Glucose 72 mg/dL (74-106); HDL Cholesterol 49 mg/dL (40-60); Potassium 4.1 mmol/L (3.5-5.1); Sodium 138 mmol/L (136-145); TSH (W/Ref FT4) 0.02 uIU/mL (0.36-3.74); Total Protein 8.1 g/dL (6.4-8.2); Triglyceride 195 mg/dL (<150)
[2023-12-22 16:13] LABS: FREE T4 1.41 ng/dL (0.76-1.46)
[2023-12-22 16:24] LABS: Microalb ug/mg Crea 32.4 ug/mg Cr
== END 2023-12-22 03:31 | disposition home or self-care (01) ==
LOC: LBO 03:30
PROVIDERS: PCP Nurse Practitioner; Visit Provider Family Medicine
DX: E11.65 Type 2 diabetes mellitus with hyperglycemia (principal)
CPT/HCPCS: 36415; 80053; 80061; 82043; 82570; 83036; 84439; 84443

== ENCOUNTER 2023-12-30 15:02 | Inpatient (IN) | payer MEDICARE, MEDICAID, SELFPAY ==
[2023-12-30 15:05] VITALS: BP 156/90; PULSE 120; RESP 14; TEMP 37.1; O2SAT 100
--- NOTE | 2023-12-30 15:15 | DI.RAD_ITS ---
Exam(s) XR FOOT RT COMPLETE EXAM: XR FOOT RT COMPLETE CLINICAL HISTORY: right foot pain. TECHNIQUE: 2D digital imaging was performed. COMPARISON: No exams were available for comparison FINDINGS: 3 views There is prominent soft tissue swelling over the dorsal aspect of the foot. There is significant disruption of the main Lisfranc joint. The cortices of the 1st and 2nd metatars als are not aligned with the respective cuneiform bones, this despite absence of obvious fracture fatou es. The 3rd, 4th, and 5th tarsometatarsal joints appear intact. There is a prominent navicular tube rosity noted on the medial aspect of the foot, probably incidental although there may also be an [place] ent of medial subluxation of the navicular here, seen on the AP view. Also noted is vascular calcification between the 1st and 2nd metatarsals. There is no evidence of ob vious ulcer nor evidence of osteomyelitis. 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 No obvious discrete fracture lines evident. Orthopedic follow-up recommended for this very significant abnormality DATA REPOSITORY: RADIATION DOSE DELIVERED:
--- NOTE | 2023-12-30 16:10 | W.ED.GENAD ---
Discharge Plan Disposition Patient Disposition: Admit to [facility] Condition: Stable Discharge Details Chief Complaint: Orthopedic Clinical Impression: Cellulitis of foot, right, Neuropathy, Type 2 diabetes mellitus with hyperglycemia, Type 2 diabetes mellitus with peripheral neuropathy Primary Care Provider: Jessica Tran ED Provider: Buffy Chester Home Meds and New Rx's Prescriptions: No Action megestrol 40 mg tablet 40 mg PO DAILY Qty: 30 3RF cetirizine [Zyrtec] 10 mg tablet 10 mg PO DAILY bupropion HCl [Wellbutrin XL] 300 mg tablet extended release 24 hr 300 mg PO QAM Qty: 30 6RF doxepin 6 mg tablet 6 mg PO QHS PRN (Reason: sleep) Qty: 30 6RF Rx Instructions: within 30min of bedtime and not within 3 hours of a meal levothyroxine [Synthroid] 200 mcg tablet 200 mcg PO DAILY Qty: 30 6RF rosuvastatin 5 mg tablet 5 mg PO DAILY Qty: 30 6RF cholecalciferol (vitamin D3) 1,250 mcg (50,000 unit) capsule 1,250 mcg PO QWEEK Qty: 12 3RF venlafaxine 150 mg tablet extended release 24hr 150 mg PO QAM Qty: 28 2RF calcium carbonate 200 mg calcium (500 mg) tablet,chewable 200 mg PO PRN Mounjaro 2.5 mg/0.5 mL pen injector 5 mg subcut QWEEK docusate sodium 100 mg capsule 100 mg PO BID Qty: 60 1RF amlodipine 2.5 mg tablet 2.5 mg PO DAILY Qty: 30 6RF gabapentin 400 mg capsule 300 mg PO BID Humulin R U-500 (Conc) Kwikpen 500 unit/mL (3 mL) insulin pen See Rx Instructions subcut BID Rx Instructions: 70 units subcutaneously twice a day; baclofen 20 mg tablet 20 mg PO TID HPI General Date/Time Provider Initiated Documentation: 12/30/23 15:21. Limitations to Documentation: no limitations. Information obtained by: patient. HPI Narrative: 38-year-old female with past medical history of diabetes, peripheral neuropathy, hypertension presents for evaluation of right foot swelling. Symptoms have been present for 3 days and have progressively worsened quickly. Patient reports increased swelling, redness and wounds of the right foot. She states that she did a foot mask and had peeling of the skin and used a stone to rip it off. This resulted in her having multiple little wounds of her foot. She states that she has known neuropathy and this is likely the cause of her creating these wounds. She reports subjective fever and chills at home. Was evaluated at an urgent care and prescribed antibiotics, but she has not been able to fill them because the pharmacy does not have them in stock it will be several more days before they do. She reports her symptoms have been significantly worsening. Pain is severe with walking and she is unable to bear weight on her foot. She has had known infection of the left foot. Related Data Home Medications ?Medication ?Instructions ?Recorded ?Confirmed bupropion HCl 300 mg 24 hr tablet, 300 mg PO QAM #30 tabs 05/05/23 12/30/23 extended release (Wellbutrin XL) calcium carbonate 200 mg PO PRN 05/05/23 12/30/23 cetirizine 10 mg tablet (Zyrtec) 10 mg PO DAILY 05/05/23 12/30/23 doxepin 6 mg tablet 6 mg PO QHS PRN sleep #30 tabs 05/05/23 12/30/23 levothyroxine 200 mcg tablet 200 mcg PO DAILY #30 tabs 05/05/23 12/30/23 (Synthroid) rosuvastatin 5 mg tablet 5 mg PO DAILY #30 tabs 05/05/23 12/30/23 cholecalciferol (vitamin D3) 1,250 1,250 mcg PO QWEEK #12 caps 09/10/23 12/30/23 mcg (50,000 unit) capsule baclofen 20 mg tablet 20 mg PO TID 10/20/23 12/30/23 venlafaxine 150 mg tablet,extended 150 mg PO QAM #28 tabs 11/13/23 12/30/23 release 24 hr gabapentin 400 mg capsule 300 mg PO BID 11/18/23 12/30/23 megestrol 40 mg tablet 40 mg PO DAILY #30 tabs 12/05/23 12/30/23 tirzepatide 2.5 mg/0.5 mL 5 mg subcut QWEEK 12/08/23 12/30/23 subcutaneous pen injector (Ha) docusate sodium 100 mg capsule 100 mg PO BID #60 caps 12/15/23 12/30/23 amlodipine 2.5 mg tablet 2.5 mg PO DAILY #30 tabs 12/22/23 12/30/23 insulin regular hum U-500 conc 500 See Rx Instructions subcut BID 12/30/23 12/30/23 unit/mL(3 mL) subcut pen (Humulin R U-500 (Conc) Insulin Kwikpen) Previous Rx's ?Medication ?Instructions ?Recorded bupropion HCl 300 mg 24 hr tablet, 300 mg PO QAM #30 tabs 05/05/23 extended release (Wellbutrin XL) doxepin 6 mg tablet 6 mg PO QHS PRN sleep #30 tabs 05/05/23 levothyroxine 200 mcg tablet 200 mcg PO DAILY #30 tabs 05/05/23 (Synthroid) rosuvastatin 5 mg tablet 5 mg PO DAILY #30 tabs 05/05/23 cholecalciferol (vitamin D3) 1,250 1,250 mcg PO QWEEK #12 caps 09/10/23 mcg (50,000 unit) capsule venlafaxine 150 mg tablet,extended 150 mg PO QAM #28 tabs 11/13/23 release 24 hr megestrol 40 mg tablet 40 mg PO DAILY #30 tabs 12/05/23 docusate sodium 100 mg capsule 100 mg PO BID #60 caps 12/15/23 amlodipine 2.5 mg tablet 2.5 mg PO DAILY #30 tabs 12/22/23 Allergies Allergy/AdvReac Type Severity Reaction Status Date / Time lisinopril Allergy Mild Other (See Verified 12/30/23 15:12 Comment) metformin Allergy Unknown unknown Verified 12/30/23 15:12 General Stated Complaint: Orthopedic SAHARA: 3 Exam Narrative Exam Narrative: Review of Systems: All systems reviewed & are unremarkable except as noted in HPI and below Well-developed, no acute distress NCAT PERRL, normal conjunctiva Tachycardic Unlabored respiratory effort clear bilaterally Nondistended abdomen Left great toe with callus formation, but no signs of infection, the right foot has multiple small wounds, the foot is edematous, erythematous and warm, there is more focal swelling around the first and second digits no focal neurologic deficits Appropriate mood and affect Course Vital Signs Vital signs: Vital Signs Temperature 37.1 C 12/30/23 15:05 Pulse 120 H 12/30/23 15:05 Respiratory Rate 14 12/30/23 15:05 Blood Pressure 156/90 H 12/30/23 15:05 Pulse Oximetry 100 12/30/23 15:05 Temperature 37.1 C 12/30/23 15:05 Temperature Source Skin 12/30/23 15:05 Pulse 120 H 12/30/23 15:05 Respiratory Rate 14 12/30/23 15:05 Respiratory Effort Normal 12/30/23 15:15 Blood Pressure 156/90 H 12/30/23 15:05 Blood Pressure Position Sitting 12/30/23 15:05 Pulse Oximetry 100 12/30/23 15:05 Oxygen Delivery Method Room Air 12/30/23 15:05 Oxygen Flow Rate 0 12/30/23 15:05 Pain Level 6 12/30/23 16:01 Lab/Test Results Lab/Test Results: 12/30/23 15:27 Blood Blood Culture - Pending 12/30/23 15:27 Blood Blood Culture - Pending Medical Decision Making Urgent evaluation of right lower extremity infection in a patient with uncontrolled diabetes. She reports that her A1c is come down, but since this foot infection started, her blood sugars have been running around 400. Initial differential includes cellulitis, osteomyelitis, sepsis. Patient is noted to be tachycardic but afebrile here. She has not been on oral antibiotics though her symptoms seem to be progressing very quickly. Her lab work is still pending at this time. Due to the time of day I am unable to get an MRI, but an x-ray was obtained and there is no obvious foreign body acute bony change or gas in the tissue appreciated. Will start empiric antibiotic therapy given her concerns for over vomiting infection. Final disposition is admission, podiatry will evaluate the patient. Will discuss with the hospitalist once lab work is back. Medical Records Medical records reviewed: Yes I reviewed the patient's medical records. Lab Data Lab results reviewed: Yes I reviewed the patient's lab results. 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 PFSH All Active Problems (Updated 12/30/23 @ 16:40 by Buffy Chester MD) Cellulitis of foot, right (Acute) Bilateral shoulder pain (Acute) Left rotator cuff tear (Acute) Patient desires (Acute) Bilateral carpal tunnel syndrome (Acute) Vertigo (Acute) Anemia (Chronic) Depression (Chronic) Panic disorder (Acute) Sore throat (Acute) Type 2 diabetes mellitus with peripheral neuropathy (Acute) Type 2 diabetes mellitus with hyperglycemia (Acute) Status post thyroidectomy (Acute) Social phobia, unspecified (Acute) Skin ulcer of left great toe, limited to breakdown of skin (Acute) Skin ulcer of left great toe with fat layer exposed (Acute) Sciatica of right side (Acute) PCOS (polycystic ovarian syndrome) (Acute) Open wound of left great toe (Acute) Chronic ulcer of right foot (Acute) Neuropathy (Acute) Metabolic syndrome (Acute) Low back pain with radiation (Acute) Lightheadedness (Acute) Intertrigo (Acute) Impingement syndrome of right shoulder (Acute) Hypo-osmolality and hyponatremia (Acute) Hyperlipidemia (Acute) Homelessness (Acute) Hemangioma (Acute) GERD without esophagitis (Acute) Essential (primary) hypertension (Acute) Dysphagia (Acute) Diarrhea (Acute) Developmental disorder of scholastic skills, unspecified (Acute) Anxiety and depression (Chronic) Medical History History of endometrial biopsy (11/19/23) Dr Muñoz Menorrhagia 2U PRBC October 2023 Endo bx planned Follicular thyroid cancer (~2021) VTE (venous thromboembolism) 10/07/23 [facility] Otitis media Surgical History H/O thyroidectomy (~2021) Social History Smoking/Tobacco Use Status: Never Second Hand Exposure: No Smoking risk assessment performed?: Yes Alcohol Intake: never Drug use: Never Substance use type: does not use Adopted: No Caregiver/Support person: No Foster care: No Household members: none Housing: apartment Number of Children: 0 number of grandchildren: 0 Communication Needs: Corrective Lenses and Cannot Read Education Level: high school Details: special diploma from Do you need help understanding health information?: Always current occupation: [employer] Pets and animals: Yes (2) Pets and animals: cat(s) Sexually active: Yes Do you think of yourself as: straight/heterosexual Current gender identity: female What is your relationship status?: never How often do you talk on the phone with friends or family?: once per week How often do you get together with friends or relatives?: never Do you belong to any clubs or organized social groups?: no Panel score (0-1 are the most socially isolated patients): 0 What type of physical activity do you participate in: regular exercise Duration: < 15 minutes/day Frequency: 1-2 times per week Seatbelt use: sometimes Helmet use: No Drive intox or ride w/intox 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
[2023-12-30 16:15] LABS: BE (Venous) -1 mmol/L (-2-3); HCO3 (Venous) 24 mmol/L (23-28); O2 Sat (Venous) 54 %; TCO2 (Venous) 23 mmol/L (24-29); pCO2 (Venous) 40 mmHg (41-51); pH (Venous) 7.39 (7.31-7.41); pO2 (Venous) 29 mmHg
[2023-12-30 16:17] LABS: Abs Immature Grans 0.03 10^3/uL (0.0-0.06); Absolute Basophil Count 0.03 10^3/uL (0.0-0.2); Absolute Eosinophil Count 0.23 10^3/uL (0.0-0.7); Absolute Lymphocyte Count 1.65 10^3/uL (1.2-3.4); Absolute Monocyte Count 0.66 10^3/uL (0.1-0.8); Absolute Neutrophil Count 6.62 10^3/uL (1.2-6.7); Basophils % 0.3 %; Eosinophils % 2.5 %; HCT 32.7 % (36.0-46.0); HGB 10.3 g/dL (11.2-15.7); Immature Grans % 0.3 %; Lymphocytes % 17.9 %; MCH 23.5 pg (27.0-33.0); MCHC 31.5 % (32.0-36.0); MCV 75 fL (80-95); MPV 8.7 fL (8.0-11.0); Monocytes % 7.2 %; Neutrophils % 71.8 %; Platelet Count 266 10^3/uL (130-400); RBC 4.38 10^6/uL (3.93-5.22); RDW 15.1 % (11.7-14.6); WBC 9.22 10^3/uL (4.4-10.8)
[2023-12-30 16:20] LABS: ESR 49 mm/hr (0-20)
[2023-12-30 16:34] LABS: ALT 21 U/L (14-59); AST 17 U/L (15-37); Alkaline Phosphatase 68 U/L (46-116); Anion Gap 7.7 mmol/L (3-11); BUN 19 mg/dL (7-18); Bilirubin, Total 0.23 mg/dL (0.2-1.0); CO2 27.3 mmol/L (21.0-32.0); CREATININE 1.1 mg/dL (0.55-1.02); Calcium 9.6 mg/dL (8.5-10.1); Chloride 104 mmol/L (98-107); Estimated GFR 65.14 (mL/min/1.73m2); Glucose 153 mg/dL (74-106); Potassium 3.7 mmol/L (3.5-5.1); Sodium 139 mmol/L (136-145); Total Protein 8.1 g/dL (6.4-8.2)
[2023-12-30] MEDS: CEFEPIME 2 GM in Normal Saline 100 ML IVPB ×2 (16:47→23:18)
[2023-12-30 16:54] LABS: Procalcitonin < 0.1 ng/mL
--- NOTE | 2023-12-30 16:55 | W.EDPROG ---
Date of service: 12/30/23 Time of Service: 16:55 Medical Decision Making I received signout on this 38-year-old diabetic patient with concern for left foot infection. She has been unable to obtain her antibiotics. Podiatry has been consulted and requests hospitalization for IV antibiotics and will evaluate patient tomorrow. 5:20 PM Podiatry is aware of the patient and advises hospitalization. Podiatry will see the patient tomorrow. CBC lacks leukocytosis and thrombocytopenia but does show mild normocytic anemia similar to prior. No academia on VBG. No CHRISTIAN. Mild hyperglycemia - nml AG & nml bicarbonate. Not consistent with DKA. 6:15 PM I was in touch with Dr. Sanchez who agreed graciously to accept the patient for hospitalization. 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 Sign Out Sign Out Data: Sign Out Comment: DM foot infection. Needs admit, labs still pending. Podiatry will see tomorrow in hospital Last updated by Buffy Chester MD at 12/30/23 16:41 Discharge Plan Disposition Patient Disposition: Admit to [facility] Condition: Stable Discharge Details Clinical Impression: Cellulitis of foot, right, Neuropathy, Type 2 diabetes mellitus with hyperglycemia, Type 2 diabetes mellitus with peripheral neuropathy Primary Care Provider: Jessica Tran ED Provider: Shane Reyes Home Meds and New Rx's Prescriptions: No Action megestrol 40 mg tablet 40 mg PO DAILY Qty: 30 3RF cetirizine [Zyrtec] 10 mg tablet 10 mg PO DAILY bupropion HCl [Wellbutrin XL] 300 mg tablet extended release 24 hr 300 mg PO QAM Qty: 30 6RF doxepin 6 mg tablet 6 mg PO QHS PRN (Reason: sleep) Qty: 30 6RF Rx Instructions: within 30min of bedtime and not within 3 hours of a meal levothyroxine [Synthroid] 200 mcg tablet 200 mcg PO DAILY Qty: 30 6RF rosuvastatin 5 mg tablet 5 mg PO DAILY Qty: 30 6RF cholecalciferol (vitamin D3) 1,250 mcg (50,000 unit) capsule 1,250 mcg PO QWEEK Qty: 12 3RF venlafaxine 150 mg tablet extended release 24hr 150 mg PO QAM Qty: 28 2RF calcium carbonate 200 mg calcium (500 mg) tablet,chewable 200 mg PO PRN Mounjaro 2.5 mg/0.5 mL pen injector 5 mg subcut QWEEK docusate sodium 100 mg capsule 100 mg PO BID Qty: 60 1RF amlodipine 2.5 mg tablet 2.5 mg PO DAILY Qty: 30 6RF gabapentin 400 mg capsule 300 mg PO BID Humulin R U-500 (Conc) Kwikpen 500 unit/mL (3 mL) insulin pen See Rx Instructions subcut BID Rx Instructions: 70 units subcutaneously twice a day; baclofen 20 mg tablet 20 mg PO TID
[2023-12-30 16:57] LABS: Diff Comment RBC Morph Reviewed; Microcytosis 1+; Polychromasia Present
[2023-12-30 17:29] VITALS: BP 112/60; PULSE 107; RESP 19; TEMP 37.3; O2SAT 98
[2023-12-30 17:34] LABS: C-Reactive Protein 14.87 mg/dL (<or=0.5)
[2023-12-30] MEDS: VANCOMYCIN 1,500 MG in Normal Saline 250 ML 166.6666 MG IVPB (17:36)
--- NOTE | 2023-12-30 18:04 | HPE_ITS ---
Date of service: 12/30/23 Time of Service: 18:05 Assessment and Plan Assessment and plan (1) Cellulitis of foot, right: Status: Acute Assessment and plan: Concerning given risk with DM and neuropathy and degree of pain and rapid progression, elevated inflammatory markers. I agree with admission with broad coverage including MRSA and pseudomonas. Blood cultures pending. MRI in am to assess for osteo or other deep/complicated infection. Podiatry aware, will see in AM (2) Neuropathy: Status: Acute Assessment and plan: continue outpatient SNRI/gabapentin. (3) PCOS (polycystic ovarian syndrome): Status: Acute Assessment and plan: Recent irregular bleeding with negative work on, on progesterone therapy. Get hcg just in case. (4) Anxiety and depression: Status: Chronic Assessment and plan: stable, continue outpatient therapy (5) Essential (primary) hypertension: Status: Acute Assessment and plan: Continue outpatient therapy (6) DVT prophylaxis: Status: Acute Assessment and plan: high risk with h/o DVT, treat with enoxaparin (7) Type 2 diabetes mellitus with peripheral neuropathy: Status: Acute Assessment and plan: Some recent hyperglycemia with infection but last A1c agressively controlled at 5.6%. Continue slightly less than outpatient insulin plus sliding scale, monitor. (8) Status post thyroidectomy: Status: Acute Assessment and plan: has been overcorrected, just lowered dose to 175mcg, continue this History of Present Illness History of Present Illness Chief Complaint: right foot pain Narrative: 38 yo F with IDDM with neuropathy, PCOS with recent abnormal bleeding, h/o upper extremity DVT, HTN who is presenting with 2 days of progressive pain and swelling in her right foot. She has a baseline dense neuropathy, doesn't feel up to below her knees. Two days ago she noted redness and swelling across the toes of her right foot. She had some minor open ulcerations there, one on her second toe seemed to get infected. She went to urgent care the day prior to admission, was prescribed antibiotics but she was unable to fill them. The pain and swelling continued to worsen and travel up her leg. Pain is burning, touching leg makes it worse. This is alarming because she doesn't typically feel this area. She started getting malaise and chills today, hasn't felt like eating. This brought her to the ED. Recently her blood sugar control has been much better, A1c <6, working with endocrine. Blood sugars up into 300-400s however in the past 2 days. Review of Systems All systems reviewed & are unremarkable except as noted in HPI and below ENT Ears, Nose, Mouth, and Throat: Reports nasal congestion, Reports nasal discharge and Reports sinus pressure Comments: mild cold symptoms PFSH All Active Problems (Updated 12/30/23 @ 21:17 by Shane Sanchez) Discharge planning issues (Acute) DVT prophylaxis (Acute) Cellulitis of foot, right (Acute) Bilateral shoulder pain (Acute) Left rotator cuff tear (Acute) Patient desires (Acute) Bilateral carpal tunnel syndrome (Acute) Vertigo (Acute) Anemia (Chronic) Depression (Chronic) Panic disorder (Acute) Sore throat (Acute) Type 2 diabetes mellitus with peripheral neuropathy (Acute) Type 2 diabetes mellitus with hyperglycemia (Acute) Status post thyroidectomy (Acute) Social phobia, unspecified (Acute) Skin ulcer of left great toe, limited to breakdown of skin (Acute) Skin ulcer of left great toe with fat layer exposed (Acute) Sciatica of right side (Acute) PCOS (polycystic ovarian syndrome) (Acute) Open wound of left great toe (Acute) Chronic ulcer of right foot (Acute) Neuropathy (Acute) Metabolic syndrome (Acute) Low back pain with radiation (Acute) Lightheadedness (Acute) Intertrigo (Acute) Impingement syndrome of right shoulder (Acute) Hypo-osmolality and hyponatremia (Acute) Hyperlipidemia (Acute) Homelessness (Acute) Hemangioma (Acute) GERD without esophagitis (Acute) Essential (primary) hypertension (Acute) Dysphagia (Acute) Diarrhea (Acute) Developmental disorder of scholastic skills, unspecified (Acute) Anxiety and depression (Chronic) Medical History History of endometrial biopsy (11/19/23) Dr Muñoz Follicular thyroid cancer (~2021) Menorrhagia 2U PRBC October 2023 Endo bx planned VTE (venous thromboembolism) 10/07/23 [facility] Otitis media Surgical History H/O thyroidectomy (~2021) Social History (Updated 12/30/23 @ 18:13 by Shane Sanchez) Smoking/Tobacco Use Status: Never Second Hand Exposure: No Smoking risk assessment performed?: Yes Alcohol Intake: never Drug use: Never Substance use type: does not use Adopted: No Caregiver/Support person: No Foster care: No Household members: none Housing: apartment Number of Children: 0 number of grandchildren: 0 Communication Needs: Corrective Lenses and Cannot Read Education Level: high school Details: special diploma from Do you need help understanding health information?: Always current occupation: [employer] Pets and animals: Yes (2) Pets and animals: cat(s) Sexually active: Yes Do you think of yourself as: straight/heterosexual Current gender identity: female What is your relationship status?: never How often do you talk on the phone with friends or family?: once per week How often do you get together with friends or relatives?: never Do you belong to any clubs or organized social groups?: no Panel score (0-1 are the most socially isolated patients): 0 What type of physical activity do you participate in: regular exercise Duration: < 15 minutes/day Frequency: 1-2 times per week Seatbelt use: sometimes Helmet use: No Drive intox or ride w/intox 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 Male partner in [place]. On SSDI due to medical and learning disability Female Reproductive History Menstrual control method: none History History 2 0 Para Hx # Term Pregnancies Multiple births Hx # Pregnancies Ectopic pregnancies AB induced Hx Number of Living Children AB spontaneous Meds Allergies and Home Medications Allergies Allergy/AdvReac Type Severity Reaction Status Date / Time lisinopril Allergy Mild Other (See Verified 12/30/23 15:12 Comment) metformin Allergy Unknown unknown Verified 12/30/23 15:12 Home Medications ?Medication ?Instructions ?Recorded ?Confirmed ?Type bupropion HCl 300 mg 24 hr tablet, 300 mg PO QAM #30 tabs 05/05/23 12/30/23 Rx extended release (Wellbutrin XL) calcium carbonate 200 mg PO PRN 05/05/23 12/30/23 History cetirizine 10 mg tablet (Zyrtec) 10 mg PO DAILY 05/05/23 12/30/23 History doxepin 6 mg tablet 6 mg PO QHS PRN sleep #30 tabs 05/05/23 12/30/23 Rx levothyroxine 200 mcg tablet 200 mcg PO DAILY #30 tabs 05/05/23 12/30/23 Rx (Synthroid) rosuvastatin 5 mg tablet 5 mg PO DAILY #30 tabs 05/05/23 12/30/23 Rx cholecalciferol (vitamin D3) 1,250 1,250 mcg PO QWEEK #12 caps 09/10/23 12/30/23 Rx mcg (50,000 unit) capsule baclofen 20 mg tablet 20 mg PO TID 10/20/23 12/30/23 History venlafaxine 150 mg tablet,extended 150 mg PO QAM #28 tabs 11/13/23 12/30/23 Rx release 24 hr gabapentin 400 mg capsule 300 mg PO BID 11/18/23 12/30/23 History megestrol 40 mg tablet 40 mg PO DAILY #30 tabs 12/05/23 12/30/23 Rx tirzepatide 2.5 mg/0.5 mL 5 mg subcut QWEEK 12/08/23 12/30/23 History subcutaneous pen injector (Cedunjaro) docusate sodium 100 mg capsule 100 mg PO BID #60 caps 12/15/23 12/30/23 Rx amlodipine 2.5 mg tablet 2.5 mg PO DAILY #30 tabs 12/22/23 12/30/23 Rx insulin regular hum U-500 conc 500 See Rx Instructions subcut BID 12/30/23 12/30/23 History unit/mL(3 mL) subcut pen (Humulin R U-500 (Conc) Insulin Kwikpen) Exam Narrative Exam Narrative: GEN: Alert and oriented x 4, pleasant and cooperative, gives linear history. No acute distress at rest. HEENT: Head atraumatic. Conjunctiva clear, no icterus. PEERL, EOMI. Mild rhinorrhea. MMM, OP benign. Neck is supple with no masses or lymphadenopathy, trachea midline LUNGS: CTAB with normal effort CV: RRR with no murmurs, gallops, or rubs. ABD: active bowel sounds, soft, nontender and nondistended. No masses. EXT: no cyanosis, clubbing. Diffuse 1+ edema right foot to aguiar. Tender in right foot up calf and into medail thigh LAD: No LAD leg/groin. MSK: No joint redness or swelling NEURO: CN 2-12 grossly intact. Normal movement of 4 extremities. Normal speech and coordination. No tremor SKIN: Warm. No rashes. Several small shallow ulceration/excoriations on both feet, right foot red. No discharge. See photo on ED note. PSYCH: normal mood and affect, nl thought process Results Labs 12/30/23 16:00 12/30/23 16:00 Labs: Laboratory Results - last 24 hr 12/30/23 16:00 WBC 9.22 RBC 4.38 Hgb 10.3 L Hct 32.7 L MCV 75 L MCH 23.5 L MCHC 31.5 L RDW 15.1 H Plt Count 266 MPV 8.7 Immature Gran % 0.3 Neutrophils % 71.8 Lymphocytes % 17.9 Monocytes % 7.2 Eosinophils % 2.5 Basophils % 0.3 Nucleated RBC % 0.0 Absolute Neutrophils 6.62 Absolute Lymphocytes 1.65 Absolute Monocytes 0.66 Absolute Eosinophils 0.23 Absolute Basophils 0.03 RBC Morphology See Below Polychromasia Present Microcytosis 1+ ESR 49 H VBG pH 7.39 VBG pCO2 40 L VBG pO2 29 VBG HCO3 24 VBG Total CO2 23 L VBG O2 Saturation 54 VBG Base Excess -1 Sodium 139 Potassium 3.7 Chloride 104 Carbon Dioxide 27.3 Anion Gap 7.7 BUN 19 H Creatinine 1.1 H Est GFR (CKD-EPI 2020) 65.14 Glucose 153 H Calcium 9.6 Total Bilirubin 0.23 AST 17 ALT 21 Alkaline Phosphatase 68 C-Reactive Protein 14.87 H Total Protein 8.1 Albumin 3.0 L Procalcitonin < 0.1 Last Vital Signs Temp 37.3 C 12/30/23 17:29 Pulse 107 H 12/30/23 17:29 Resp 19 12/30/23 17:29 BP 112/60 12/30/23 17:29 Pulse Ox 98 12/30/23 17:29 Time Spent Time spent with Patient: 55-74 minutes Time was spent: preparing to see the patient(eg.review tests), obtaining and/or reviewing separately otained hiistory, ordering medications,tests, procedures, referring, communicating with other health laboratory animal caretaker, indepentently interpreting results, counseling the patient and care coordination
--- NOTE | 2023-12-30 18:50 | W.PC.ACHO ---
Registration Status: Primary Language: Preferred Language: ED Information & Data Chief Complaint Orthopedic 12/30/23 16:11 Triage Note L foot infection seen last 12/30/23 15:05 or friday then yesterday for R foot. given abx but it is on order with [facility]. R foot pain for 3 days with swelling, pain, sweats. BS is over 350 this am. Humalin 70 Units this am. Medical / Surgical History (Last Reviewed 12/30/23 @ 18:11 by Shane Sanchez) History of endometrial biopsy (11/19/23) Menorrhagia Follicular thyroid cancer (~2021) VTE (venous thromboembolism) Otitis media (Last Reviewed 12/30/23 @ 18:11 by Shane Sanchez) H/O thyroidectomy (~2021) Most Recent Vital Signs Temperature 37.3 C 12/30/23 17:29 Temperature Source Temporal Artery Scan 12/30/23 17:29 Pulse 107 H 12/30/23 17:29 Respiratory Rate 19 12/30/23 17:29 Respiratory Effort Normal 12/30/23 15:15 Blood Pressure 112/60 12/30/23 17:29 Blood Pressure Position Sitting 12/30/23 15:05 Pulse Oximetry 98 12/30/23 17:29 Oxygen Delivery Method Room Air 12/30/23 17:29 Oxygen Flow Rate 0 12/30/23 17:29 Pain Level 6 12/30/23 16:01 Allergies lisinopril Allergy (Mild, Verified 12/30/23 15:12) Other (See Comment) coughing metformin Allergy (Unknown, Verified 12/30/23 15:12) unknown IV IV Catheter Type [Right Peripheral IV Antecubital] IV Catheter Gauge [Right 18 Antecubital] Diet Orders Category Date Time Status Nothing Per Oral [DIET] Nutrition 12/31/23 Breakfast Ordered Diagnostics 12/30/23 Range/Units 16:00 WBC 9.22 (4.4-10.8) 10^3/uL RBC 4.38 (3.93-5.22) 10^6/uL Hgb 10.3 L (11.2-15.7) g/dL Hct 32.7 L (36.0-46.0) % MCV 75 L (80-95) fL MCH 23.5 L (27.0-33.0) pg MCHC 31.5 L (32.0-36.0) % RDW 15.1 H (11.7-14.6) % Plt Count 266 (130-400) 10^3/uL MPV 8.7 (8.0-11.0) fL Immature Gran % 0.3 % Neutrophils % 71.8 % Lymphocytes % 17.9 % Monocytes % 7.2 % Eosinophils % 2.5 % Basophils % 0.3 % Nucleated RBC % 0.0 (0.0-0.3) % Absolute Neutrophils 6.62 (1.2-6.7) 10^3/uL Absolute Lymphocytes 1.65 (1.2-3.4) 10^3/uL Absolute Monocytes 0.66 (0.1-0.8) 10^3/uL Absolute Eosinophils 0.23 (0.0-0.7) 10^3/uL Absolute Basophils 0.03 (0.0-0.2) 10^3/uL RBC Morphology See Below Polychromasia Present Microcytosis 1+ ESR 49 H (0-20) mm/hr VBG pH 7.39 (7.31-7.41) VBG pCO2 40 L (41-51) mmHg VBG pO2 29 mmHg VBG HCO3 24 (23-28) mmol/L VBG Total CO2 23 L (24-29) mmol/L VBG O2 Saturation 54 % VBG Base Excess -1 (-2-3) mmol/L Sodium 139 (136-145) mmol/L Potassium 3.7 (3.5-5.1) mmol/L Chloride 104 (98-107) mmol/L Carbon Dioxide 27.3 (21.0-32.0) mmol/L Anion Gap 7.7 (3-11) mmol/L BUN 19 H (7-18) mg/dL Creatinine 1.1 H (0.55-1.02) mg/dL Est GFR (CKD-EPI 2020) 65.14 (mL/min/1.73m2) Glucose 153 H (74-106) mg/dL Calcium 9.6 (8.5-10.1) mg/dL Total Bilirubin 0.23 (0.2-1.0) mg/dL AST 17 (15-37) U/L ALT 21 (14-59) U/L Alkaline Phosphatase 68 (46-116) U/L C-Reactive Protein 14.87 H (<or=0.5) mg/dL Total Protein 8.1 (6.4-8.2) g/dL Albumin 3.0 L (3.4-5.0) g/dL Procalcitonin < 0.1 ng/mL 12/30/23 16:30 Blood Culture - Pending Blood 12/30/23 16:00 Blood Culture - Pending Blood [id number] Documentation Fingerstick Glucose Start: 12/30/23 15:13 Freq: Status: Active Protocol: Activity Type Activity Date Activity User E-sign Co-sign Detail Recorded Client Recorded Date Recorded By Document 12/30/23 15:12 SHARONDA DAEMON(3) [id number] 12/30/23 15:13 BKG DAEMON(4) Intake and Output - 24 Hour Total 12/30/23 15:02 thru 12/30/23 17:18 Intake Total 110 Balance 110 Weight 102.058 kg Intake: IV 110 Falls Risk Assessment History of Falls No History 12/30/23 16:01 Contributing Factors No Factors 12/30/23 16:01 Ambulatory Aids Independent 12/30/23 16:01 Tubes/Lines None 12/30/23 16:01 Gait Evaluation No gait disturbance 12/30/23 16:01 Cognition No cognitive impairment 12/30/23 16:01 Fall Total Score 0 12/30/23 16:01 Level of Risk Standard/Low Risk 12/30/23 16:01 Problems (Last Reviewed 12/30/23 @ 18:11 by Shane Sanchez) Cellulitis of foot, right (Acute) Type 2 diabetes mellitus with peripheral neuropathy (Acute) Type 2 diabetes mellitus with hyperglycemia (Acute) Neuropathy (Acute) v v v v v v v v v Sending and/or Receiving Nurses: Please use comment section below to note any information pertinent to the patient hand-off not included above. Information / Comments:Patient admitted due to left and right foot infection, with pain, redness and is warm to touch. Pt has uncontrolled type 2 DM. BP 112/60, HR 107 but has gone up into the 130's. She has been anxious due to being in the hospital. Blood cultures have been drawn and antibiotics have begun; both cefepime and vancomycin. Pt is alert and oriented, with clear lungs and regular heart beat. IV is located in the right AC. Report received from: Indra Kerns
[2023-12-30 19:26] VITALS: TEMP 38.2
[2023-12-30] MEDS: Baclofen 10 MG TAB 20 MG PO (19:26)
[2023-12-30] MEDS: Acetaminophen 325 MG TAB PO (19:26)
[2023-12-30] MEDS: Normal Saline Flush 10 ML SYR IVP (19:27)
[2023-12-30] MEDS: Gabapentin 300 MG CAP PO (19:27)
[2023-12-30] MEDS: Docusate Sodium 100 MG CAP PO (19:27)
[2023-12-30 19:28] VITALS: BP 147/74; PULSE 113; RESP 18; TEMP 38.2; O2SAT 100
[2023-12-30] MEDS: Enoxaparin 40 MG/0.4 ML SYR SC (20:13)
[2023-12-30 20:22] LABS: COVID-19 PCR Negative (Negative); Influenza A PCR Negative (Negative); Influenza B PCR Negative (Negative); RSV PCR Negative (Negative)
[2023-12-30 20:23] LABS: Source Nasopharynx
[2023-12-30 20:42] LABS: HCG Qual (Urine) Negative
[2023-12-30] MEDS: Normal Saline 1,000 ML 80 ML IV (21:58)
[2023-12-30 23:19] VITALS: BP 134/76; PULSE 102; RESP 18; TEMP 37.4; O2SAT 98
--- NOTE | 2023-12-31 | DI.US_ITS ---
Exam(s) US LOWER EXTREMITY VENOUS RT EXAM: US LOWER EXTREMITY VENOUS RT CLINICAL HISTORY: RLE pain/swelling, up thigh TECHNIQUE: Right lower extremity venous ultrasound performed using grayscale, color-flow, and spectr al Doppler analysis. COMPARISON: No exams were available for comparison FINDINGS: The right common femoral, femoral and popliteal veins demonstrate normal compressibility, augmentatio n, and color Doppler. The posterior tibial and peroneal veins are patent. The saphenofemoral junctio n is unremarkable. There is no evidence of a Rose cyst. The soft tissues are unremarkable. IMPRESSION: No evidence of a right lower extremity DVT. DATA REPOSITORY:
[2023-12-31] MEDS: Acetaminophen 325 MG TAB PO ×2 (00:16→20:16)
[2023-12-31] MEDS: Ibuprofen 600 MG TAB PO ×2 (00:17→20:16)
[2023-12-31] MEDS: LEVOTHYROXINE 100 MCG, LEVOTHYROXINE 75 MCG 175 MCG PO (05:32)
[2023-12-31] MEDS: VANCOMYCIN/WATER (PEG) 1.25 GM/250 ML BAG IVPB (05:33)
[2023-12-31 06:29] LABS: Abs Immature Grans 0.02 10^3/uL (0.0-0.06); Absolute Basophil Count 0.02 10^3/uL (0.0-0.2); Absolute Eosinophil Count 0.28 10^3/uL (0.0-0.7); Absolute Lymphocyte Count 2.06 10^3/uL (1.2-3.4); Absolute Monocyte Count 0.52 10^3/uL (0.1-0.8); Absolute Neutrophil Count 4.45 10^3/uL (1.2-6.7); Basophils % 0.3 %; Eosinophils % 3.8 %; HCT 30.6 % (36.0-46.0); HGB 9.7 g/dL (11.2-15.7); Immature Grans % 0.3 %; MCHC 31.7 % (32.0-36.0); MCV 76 fL (80-95); MPV 8.8 fL (8.0-11.0); Monocytes % 7.1 %; Neutrophils % 60.5 %; Platelet Count 242 10^3/uL (130-400); RBC 4.04 10^6/uL (3.93-5.22); RDW 15.2 % (11.7-14.6); RDW-SD 42.3 fL; WBC 7.35 10^3/uL (4.4-10.8)
[2023-12-31 06:40] LABS: Anion Gap 11.6 mmol/L (3-11); BUN 17 mg/dL (7-18); CO2 20.4 mmol/L (21.0-32.0); CREATININE 0.9 mg/dL (0.55-1.02); Calcium 9.1 mg/dL (8.5-10.1); Chloride 108 mmol/L (98-107); Estimated GFR 82.88 (mL/min/1.73m2); Glucose 131 mg/dL (74-106); Potassium 3.7 mmol/L (3.5-5.1); Sodium 140 mmol/L (136-145)
[2023-12-31 08:09] VITALS: BP 132/82; PULSE 99; RESP 16; TEMP 36.9; O2SAT 100
[2023-12-31] MEDS: Venlafaxine 150 MG CAPCR PO (08:35)
[2023-12-31] MEDS: Baclofen 10 MG TAB 20 MG PO ×3 (08:35→20:16)
[2023-12-31] MEDS: Cetirizine 10 MG TAB PO (08:35)
[2023-12-31] MEDS: amLODIPine 2.5 MG TAB PO (08:36)
[2023-12-31] MEDS: Rosuvastatin 5 MG TAB PO (08:37)
[2023-12-31] MEDS: buPROPion-XL 150 MG TABCR 300 MG PO (08:37)
[2023-12-31] MEDS: Docusate Sodium 100 MG CAP PO ×2 (08:37→20:16)
[2023-12-31] MEDS: Gabapentin 300 MG CAP PO ×2 (08:37→20:16)
[2023-12-31] MEDS: Normal Saline Flush 10 ML SYR IVP ×3 (08:38→20:17)
[2023-12-31] MEDS: CEFEPIME 2 GM in Normal Saline 100 ML IVPB ×2 (08:43→16:12)
--- NOTE | 2023-12-31 09:30 | PDOC.CMIN ---
Date of service: 12/31/23 Time of Service: 14:00 Care Management Initial Assmt Initial Assessment Reason for Hospitalization: diabetic foot wound/cellulitis Right foot Functional Status/Living Situation Patient Presentation: Priyanka was sitting up in the chair, feet elevated, when CM went to meet with her. Priyanka was talking with her [facility] field nurse case manager, Carol Zheng RN, when CM entered the room. CM spoke with both KATIE and Priyanka for a few minutes. [facility] relayed to CM that Priyanka is anxious about her cats, who are left alone, and is also feeling a lot of anxiety over her consultation with podiatry. Priyanka and TABATHA then spoke for a good while. Priyanka has a long past medical history. She readily admits that she was very overwhelmed when she spoke with the senior automation engineer. She was told that a risk of her condition is below the knee amputation. She was crying when she spoke of this. Encouraged Priyanka to not get too far ahead of herself, she is being treated for the infection and she is in the right place. Also let her know that amputation is the last resort. This helped ease her anxiety a bit. Priyanka stated that she is in a lot of pain. She is receiving Baclofen and tylenol with little relief. She stated she has not slept in 3 nights due to the pain. She has asked for something stronger. While sitting with her, it was very easily to see her left calf cramping up. Also her left foot is very swollen from the ankle down. She can not roll that ankle. The arch of the left foot is noticeably more flat than that of her right foot. Both lower extremities have scarring from old wounds. Her right great toe has an open area on it's outer aspect. Priyanka stated she has neuropathy and gets wounds easily, and they heal slowly. Priyanka also admits to just generally having a lot of anxiety. She does not like to leave her apartment. She has had several medical scares in the last few years, often being told that if I didn't follow treatment, I would . She has multiple medical appointments in the coming months. She is followed by endocrinology, orthopedics, psych and therapy, podiatry and [facility], and sees her PCP on a regular basis. As stated, she also has a [facility] field nurse case manager, is followed by [facility] and is connected with the Asbestos Abatement Worker at her PCP office ([facility]) Town of Residence: [place] [facility] Resides with: Alone (has 2 cats that she finds are a huge support.) Significant Other/Family: Out of area (Her boyfriend of 8 years lives in [place], and visits when he can. They have lived together in the past, but as not officially , he was not allowed on her [place] lease.) Natural Supports: No family support. Has a sister and a mother with whom she doesn't speak. Father has passed. No other family or friends. Is fairly new to this area. States [facility] is a great support to her. Employment Status: Disabled (Priyanka currently receives SSDI. She has had many jobs in the labor industry, but had so many illnesses and injuries that she was never able to hold down a job for very long.) Instrumental Activities of Daily Living (ADLs): Independent Activities/Hobbies/SocialSupport: Loves her cats Medications Medication Management: No Issues/Barriers identified (Receives her meds from [facility] in the bubble pack. Was having trouble managing due to her poor eyesight) Physical Functioning/Mobility Assistive Device: none. Will be non-weight bearing and will require a device. PT consult placed today. Advance Directives Advance Directives: Do you have an Advance Directive: N 10/29/23 13:23 AD On File at [facility]: N 10/29/23 13:23 Date Asked 12/30/23 12/30/23 15:11 AD Date Reviewed COLST On File at [facility] COLST Date Scanned Code Status Resuscitation Status Full Code Insurance Coverage/Financial Issues Insurance: Medicaid and Medicare A&B Financial Issues: Priyanka's only income is her SSDI. She barely gets by from month to month Care Team Visit Care Team Role Provider Type Jessica Tran NP Primary Care Provider NURSE PRACTITIONER Marnie Owens, DPM Other Providers DPM [facility] STAFF PHYSICIAN Wilberto Meyers, PRODUCT SUPPORT ANALYST Other Providers [facility] REG NURSE CUSTOMER EXPERIENCE PROFESSIONAL Amador Livingston, DPM Other Providers DPM [facility] STAFF PHYSICIAN Shane Reyes MD Emergency Provider [facility] STAFF PHYSICIAN Shane Sanchez Admit Provider [facility] STAFF PHYSICIAN Attending Provider Discharge Potential Discharge Needs: PCP F/U Appt and Other (podiatry follow up) Anticipated Barriers to Discharge: None Identified Patient/Family Education Needs: Review discharge instructions, discuss Ask Me Three Transportation: [facility] Transportation: Private vechicle Plan: Anticipate that Priyanka will be discharged home with new HH services for RN, PT/OT. Will need f/u with podiatry and possibly surgery. PFSH All Active Problems (Updated 12/31/23 @ 11:11 by Marnie Owens DPM) Ulcer of left foot (Acute) Ulcer of right foot (Acute) Charcot joint of right foot (Acute) Lisfranc dislocation (Acute) Discharge planning issues (Acute) DVT prophylaxis (Acute) Cellulitis of foot, right (Acute) Bilateral shoulder pain (Acute) Left rotator cuff tear (Acute) Patient desires (Acute) Bilateral carpal tunnel syndrome (Acute) Vertigo (Acute) Anemia (Chronic) Depression (Chronic) Panic disorder (Acute) Sore throat (Acute) Type 2 diabetes mellitus with peripheral neuropathy (Acute) Type 2 diabetes mellitus with hyperglycemia (Acute) Status post thyroidectomy (Acute) Social phobia, unspecified (Acute) Skin ulcer of left great toe, limited to breakdown of skin (Acute) Skin ulcer of left great toe with fat layer exposed (Acute) Sciatica of right side (Acute) PCOS (polycystic ovarian syndrome) (Acute) Open wound of left great toe (Acute) Chronic ulcer of right foot (Acute) Neuropathy (Acute) Metabolic syndrome (Acute) Low back pain with radiation (Acute) Lightheadedness (Acute) Intertrigo (Acute) Impingement syndrome of right shoulder (Acute) Hypo-osmolality and hyponatremia (Acute) Hyperlipidemia (Acute) Homelessness (Acute) Hemangioma (Acute) GERD without esophagitis (Acute) Essential (primary) hypertension (Acute) Dysphagia (Acute) Diarrhea (Acute) Developmental disorder of scholastic skills, unspecified (Acute) Anxiety and depression (Chronic) Medical History History of endometrial biopsy (11/19/23) Dr Muñoz Follicular thyroid cancer (~2021) Menorrhagia 2U PRBC October 2023 Endo bx planned VTE (venous thromboembolism) 10/07/23 [facility] Otitis media Surgical History H/O thyroidectomy (~2021) Social History Smoking/Tobacco Use Status: Never Second Hand Exposure: No Smoking risk assessment performed?: Yes Alcohol Intake: never Drug use: Never Substance use type: does not use Adopted: No Caregiver/Support person: No Foster care: No Household members: none Housing: apartment Number of Children: 0 number of grandchildren: 0 Communication Needs: Corrective Lenses and Cannot Read Education Level: high school Details: special diploma from Do you need help understanding health information?: Always current occupation: [employer] Pets and animals: Yes (2) Pets and animals: cat(s) Sexually active: Yes Do you think of yourself as: straight/heterosexual Current gender identity: female What is your relationship status?: never How often do you talk on the phone with friends or family?: once per week How often do you get together with friends or relatives?: never Do you belong to any clubs or organized social groups?: no Panel score (0-1 are the most socially isolated patients): 0 What type of physical activity do you participate in: regular exercise Duration: < 15 minutes/day Frequency: 1-2 times per week Seatbelt use: sometimes Helmet use: No Drive intox or ride w/intox local tanker truck driver: No Do you feel safe at home: Yes Do you feel safe in your relationship?: Yes Additional Social history: Has apartment in [facility] in [facility] [email or web address] Male partner in [place]. On SSDI due to medical and learning disability Female Reproductive History Menstrual control method: none History History 0 Para Hx # Term Pregnancies Multiple births Hx # Pregnancies Ectopic pregnancies AB induced Hx Number of Living Children AB spontaneous SDOH(Care Management) Screening Will the Patient Participate in the Screening?: Yes Do you worry about having a steady place to live?: no Problems where you live: other (has a window that won't close. Has been asking to have it fixed for a year) and no known problems In the past 12 months, have you had to go without electric, gas, oil or water in your home?: no Have you or anyone in your house had to go without enough food to eat?: yes Has lack of transportation kept you from medical appointments or from doing things needed for daily living?: yes Has anyone in your support network made you feel unsafe for any reason?: no Social Determinants of Health Comments(SDOH Details): Would like to get back on Meals on Wheels Health Related Social Needs Health related social needs: food insecurity(Z59.41) and transportation insecurity(Z59.82) Health related social needs details: is connected with [facility]. Has to carefully schedule appointments as to not go over her allotted number of rides per month. Often can't afford healthy food. Interventions Care Management Referrals: PCP [facility] (Spoke to [facility] at [facility]. Priyanka is looking to get meals on wheels through [facility].) Anticipated HH Services Anticipated HH Services at Discharge [facility] Needed, FLYER MAKER, PT and RN.
[2023-12-31] MEDS: Gadoterate meglumine 20 ML VIAL IVP (09:53)
--- NOTE | 2023-12-31 10:15 | DI.MRI_ITS ---
Exam(s) MR LOWER EXTREMITY RT WO/W EXAM: MR LOWER EXTREMITY RT WO/W CLINICAL HISTORY: diabetic infection, osteo? TECHNIQUE: Multiplanar multisequence MRI was performed. Both pre and post contrast infused sequence s were performed. Contrast injected was 20 mL IV Dotarem COMPARISON: CR XR FOOT RT COMPLETE from 12/30/2023 FINDINGS: Interpretation of this MRI somewhat limited by the large field of view. SKIN/SUBCUTANEOUS TISSUES: There is diffuse soft tissue edema. The most prominent soft tissue edema is over the dorsal aspect of the foot. No obvious ulcer tract. No discernible abscess evident. OSSEOUS/ARTICULATIONS:There is significant disruption of the main Lisfranc joint with significant off set of the 1st, 2nd and 3rd tarsometatarsal joints with significant lateral subluxation of the bases of the 1st, 2nd, and 3rd metatarsals relative to the cuneiform bones and there is complete disruption of the Lisfranc ligament. There is prominent bone contusion signal in the medial cuneiform as well as some bone contusion the middle cuneiform and lateral cuneiform. Also in the 1st, 2nd, and 3rd met atarsals, most prominent at the base of the 2nd metatarsal. Suspect subtle nondisplaced fracture fatou e in the medial cuneiform. Best seen on T1 images There is no displacement nor abnormal signal in the 4th and 5th metatarsals nor in the cuboid. There is no evidence of confluent hypointense marrow signal on non fat sat T1 weighted sequences to s uggest osteomyelitis. Small joint effusion noted in the great toe metatarsophalangeal joint. Mild degenerative changes in this articulation. MUSCLES/TENDONS: No obvious high-grade tendon tears. There is some multifocal increased signal in th e Achilles tendon. The Achilles itself is not thickened. EXTRAMUSCULAR SOFT TISSUES: Diffuse edema OTHER: None. IMPRESSION: 1. There is significant disruption of the Lisfranc joint with complete tearing of the main Lisfranc l igament and with offset of the 1st, 2nd, and 3rd tarsometatarsal joints/abnormal lateral subluxation of the 1st, 2nd, and 3rd metatarsals relative to the cuneiform bones. There is multilevel bone contu dennys signal in the affected metatarsal bases and cuneiform is, most prominent in the medial cuneiform where there may be a subtle nondisplaced T1 dark fracture line. Follow-up high-resolution CT scan i s recommended for better delineation of fracture lines. 2. There is no evidence of osteomyelitis. 3. Small joint effusion noted in the metatarsophalangeal joint of the great toe with some degenerativ e changes at this articulation. Other findings as above. DATA REPOSITORY:
[2023-12-31] MEDS: Normal Saline 1,000 ML 80 ML IV (11:01)
--- NOTE | 2023-12-31 11:04 | POCOE_ITS ---
Date of service: 12/31/23 Time of Service: 08:00 Assessment and Plan Assessment and plan (1) Lisfranc dislocation: Status: Acute (2) Charcot joint of right foot: Status: Acute (3) Cellulitis of foot, right: Status: Acute (4) Ulcer of right foot: Status: Acute (5) Ulcer of left foot: Status: Acute (6) Type 2 diabetes mellitus with peripheral neuropathy: Status: Acute Assessment and plan: Patient was seen bedside today. Chart was reviewed. Labs were reviewed and her white count is noted to be within normal limits. ESR noted to be elevated at 49. X-rays show complete dislocation of the Lisfranc joint with lateral displacement however, fortunately without significant plantar collapse. There is no bony fragmentation as of yet. Patient has neuropathy. She does not recall any injury to the right foot. Given this, I am highly suspicious this is Charcot rather than traumatic Lisfranc dislocation. I will have the patient remain strictly nonweightbearing to the right lower extremity to prevent further collapse or joint fragmentation with Charcot. Given concern for Charcot, we will hold off on ORIF of the Lisfranc joint. Once that Charcot settles, she will benefit from a fusion. If there is joint collapse in the future she will be at risk for developing ulceration and infection. MRI are pending. Independent review of MRI does not show an abscess to me at this time to necessitate an I&D type procedure however will await official report. Patient will require local wound care for bilateral lower extremity ulcers. May apply antibiotic ointment and dry dressings for the ulcers bilaterally for now. Patient has to follow-up with me in office within 1 week. History of Present Illness Narrative: 38-year-old female patient with past medical history of diabetes, peripheral neuropathy, hypertension who presented to the ER yesterday for evaluation of right foot swelling, redness and pain. Patient reports symptoms for about 3 days with progressive worsening. She reports increased swelling, redness and wound of the right foot. Denies acute trauma however states that she did a foot mask and was rubbing the skin with a stone and was perhaps aggressive resulting in wounds to both feet. She states that she has neuropathy which is likely worsening of the symptoms. She states that the right lower extremity was red and swollen yesterday and since coming to the hospital this has subsided significantly. Does report pain to the right lower extremity to her calf and thighs. She is unable to weight-bear to her right foot. Does report hyperkeratosis to the plantar aspect of the left hallux Review of Systems Cardiovascular Comments: Vascular status intact Integumentary/Breasts Comments: Multiple ulcers bilateral lower extremity with resolving erythema Neurologic Comments: Light touch sensation is absent to the right foot PFSH All Active Problems (Updated 12/31/23 @ 11:11 by Marnie Owens DPM) Ulcer of left foot (Acute) Ulcer of right foot (Acute) Charcot joint of right foot (Acute) Lisfranc dislocation (Acute) Discharge planning issues (Acute) DVT prophylaxis (Acute) Cellulitis of foot, right (Acute) Bilateral shoulder pain (Acute) Left rotator cuff tear (Acute) Patient desires (Acute) Bilateral carpal tunnel syndrome (Acute) Vertigo (Acute) Anemia (Chronic) Depression (Chronic) Panic disorder (Acute) Sore throat (Acute) Type 2 diabetes mellitus with peripheral neuropathy (Acute) Type 2 diabetes mellitus with hyperglycemia (Acute) Status post thyroidectomy (Acute) Social phobia, unspecified (Acute) Skin ulcer of left great toe, limited to breakdown of skin (Acute) Skin ulcer of left great toe with fat layer exposed (Acute) Sciatica of right side (Acute) PCOS (polycystic ovarian syndrome) (Acute) Open wound of left great toe (Acute) Chronic ulcer of right foot (Acute) Neuropathy (Acute) Metabolic syndrome (Acute) Low back pain with radiation (Acute) Lightheadedness (Acute) Intertrigo (Acute) Impingement syndrome of right shoulder (Acute) Hypo-osmolality and hyponatremia (Acute) Hyperlipidemia (Acute) Homelessness (Acute) Hemangioma (Acute) GERD without esophagitis (Acute) Essential (primary) hypertension (Acute) Dysphagia (Acute) Diarrhea (Acute) Developmental disorder of scholastic skills, unspecified (Acute) Anxiety and depression (Chronic) Medical History History of endometrial biopsy (11/19/23) Dr Muñoz Follicular thyroid cancer (~2021) Menorrhagia 2U PRBC October 2023 Endo bx planned VTE (venous thromboembolism) 10/07/23 [facility] Otitis media Surgical History H/O thyroidectomy (~2021) Social History Smoking/Tobacco Use Status: Never Second Hand Exposure: No Smoking risk assessment performed?: Yes Alcohol Intake: never Drug use: Never Substance use type: does not use Adopted: No Caregiver/Support person: No Foster care: No Household members: none Housing: apartment Number of Children: 0 number of grandchildren: 0 Communication Needs: Corrective Lenses and Cannot Read Education Level: high school Details: special diploma from Do you need help understanding health information?: Always current occupation: [employer] Pets and animals: Yes (2) Pets and animals: cat(s) Sexually active: Yes Do you think of yourself as: straight/heterosexual Current gender identity: female What is your relationship status?: never How often do you talk on the phone with friends or family?: once per week How often do you get together with friends or relatives?: never Do you belong to any clubs or organized social groups?: no Panel score (0-1 are the most socially isolated patients): 0 What type of physical activity do you participate in: regular exercise Duration: < 15 minutes/day Frequency: 1-2 times per week Seatbelt use: sometimes Helmet use: No Drive intox or ride w/intox wedding transportation driver: No Do you feel safe at home: Yes Do you feel safe in your relationship?: Yes Additional Social history: Has apartment in [facility] in [facility]. Male partner in [place]. On SSDI due to medical and learning disability Female Reproductive History Menstrual control method: none History History 2 0 Para Hx # Term Pregnancies Multiple births Hx # Pregnancies Ectopic pregnancies AB induced Hx Number of Living Children AB spontaneous Exam Extrem Other: Bilateral lower extremity physical exam: Derm: Multiple scabs/ulcerations noted bilateral lower extremity. There is mild erythema noted to the right foot ulceration to the right hallux and right second toe the ulcer is present dorsally there is no REJI ulcerative fluctuance bogginess probe to bone or capsule or proximal streaking. Right lower extremity appears to be warm. Hyperkeratosis with eschar formation noted subleft hallux without any periwound erythema to indicate deeper infection. Vascular: DP and PT pulses are palpable bilaterally. Some warmth noted to the right lower extremity. Increased edema noted to the right foot. MSK: There is pain noted to the right foot calf as well as thigh. No collapse noted to the right foot. All toes are present. Neuro: Light touch sensation is absent bilaterally Results Last Vital Signs Temp 98.4 F 12/31/23 08:09 Pulse 99 H 12/31/23 08:09 Resp 16 12/31/23 08:09 BP 132/82 12/31/23 08:09 Pulse Ox 100 12/31/23 08:09 Labs 12/31/23 06:09 12/31/23 06:09 Labs: Laboratory Results - last 24 hr 12/30/23 12/30/23 12/31/23 16:00 19:31 06:09 WBC 9.22 7.35 RBC 4.38 4.04 Hgb 10.3 L 9.7 L Hct 32.7 L 30.6 L MCV 75 L 76 L MCH 23.5 L 24.0 L MCHC 31.5 L 31.7 L RDW 15.1 H 15.2 H Plt Count 266 242 MPV 8.7 8.8 Immature Gran % 0.3 0.3 Neutrophils % 71.8 60.5 Lymphocytes % 17.9 28.0 Monocytes % 7.2 7.1 Eosinophils % 2.5 3.8 Basophils % 0.3 0.3 Nucleated RBC % 0.0 0.0 Absolute Neutrophils 6.62 4.45 Absolute Lymphocytes 1.65 2.06 Absolute Monocytes 0.66 0.52 Absolute Eosinophils 0.23 0.28 Absolute Basophils 0.03 0.02 RBC Morphology See Below Polychromasia Present Microcytosis 1+ ESR 49 H VBG pH 7.39 VBG pCO2 40 L VBG pO2 29 VBG HCO3 24 VBG Total CO2 23 L VBG O2 Saturation 54 VBG Base Excess -1 Sodium 139 140 Potassium 3.7 3.7 Chloride 104 108 H Carbon Dioxide 27.3 20.4 L Anion Gap 7.7 11.6 H BUN 19 H 17 Creatinine 1.1 H 0.9 Est GFR (CKD-EPI 2020) 65.14 82.88 Glucose 153 H 131 H Calcium 9.6 9.1 Total Bilirubin 0.23 AST 17 ALT 21 Alkaline Phosphatase 68 C-Reactive Protein 14.87 H Total Protein 8.1 Albumin 3.0 L Procalcitonin < 0.1 Urine HCG, Qual Negative COVID-19 Source Nasopharynx SARS-CoV-2 (PCR) Negative Influenza Type A (PCR) Negative Influenza Type B (PCR) Negative RSV (PCR) Negative Imaging Imaging Studies: Patient Name: Priyanka Turner Unit #: [id number] Loc: ER Ordering Provider: Buffy Chester M.D. Status: REG ER Primary Care Provider: Jessica Tran NP Date of Exam: 12/30/23 Sex: F Admission Date: 12/30/23 : 1985 Age: 38 Exam(s) XR FOOT RT COMPLETE EXAM: XR FOOT RT COMPLETE CLINICAL HISTORY: right foot pain. TECHNIQUE: 2D digital imaging was performed. COMPARISON: No exams were available for comparison FINDINGS: 3 views There is prominent soft tissue swelling over the dorsal aspect of the foot. There is significant disruption of the main Lisfranc joint. The cortices of the 1st and 2nd metatarsals are not aligned with the respective cuneiform bones, this despite absence of obvious fracture lines. The 3rd, 4th, and 5th tarsometatarsal joints appear intact. There is a prominent navicular tuberosity noted on the medial aspect of the foot, probably incidental although there may also be an element of medial subluxation of the navicular here, seen on the AP view. Also noted is vascular calcification between the 1st and 2nd metatarsals. There is no evidence of obvious ulcer nor evidence of osteomyelitis. 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 No obvious discrete fracture lines evident. Orthopedic follow-up recommended for this very significant abnormality
[2023-12-31] MEDS: Insulin Aspart 300 UNITS/3 ML PEN SC ×2 (12:11→17:15)
--- NOTE | 2023-12-31 12:44 | W.PM.PROGNOT ---
Date of Service Date of service: 12/31/23 Time of Service: 10:45 Assessment and Plan Assessment and plan (1) Cellulitis of foot, right: Status: Acute Assessment and plan: Continue broad coverage including MRSA and pseudomonas. Blood cultures pending. XR concerning for Charcot. MRI read still pending to assess for osteo or other deep/complicated infection. Podiatry guidance appreciated. (2) Neuropathy: Status: Acute Assessment and plan: continue outpatient SNRI/gabapentin and prn iburoprofen and acetaminophen for now. (3) DVT prophylaxis: Status: Acute Assessment and plan: high risk with h/o DVT, treat with enoxaparin (4) Type 2 diabetes mellitus with peripheral neuropathy: Status: Acute Assessment and plan: Some recent hyperglycemia with infection but last A1c agressively controlled at 5.6%. Continue slightly less than outpatient insulin plus sliding scale, monitor. Also has home tirzepatide weekly. (5) Status post thyroidectomy: Status: Acute Assessment and plan: has been overcorrected, just lowered dose to 175mcg, continue this Subjective Subjective Patient reports: voiding w/o difficulty; denies vomiting, shortness of breath or fever Interval history since last seen: Still pain in the right leg, was hard to sleep at night. Got APAP and iburprofen overnight. She is hungry. No more vomiting. Exam Narrative Exam Narrative: GEN: Alert and oriented x 4. No acute distress at rest. LUNGS: CTAB with normal effort CV: RRR with no murmurs, gallops, or rubs. ABD: active bowel sounds, soft, nontender and nondistended. No masses. EXT: no cyanosis, clubbing. Diffuse 1+ edema right foot to aguiar. Tender in right foot up calf and into medial thigh MSK: No joint redness or swelling, right foot enlarged SKIN: Warm. No rashes. right foot a less red Objective Last Vital Signs Temp 36.9 C 12/31/23 08:09 Pulse 99 H 12/31/23 08:09 Resp 16 12/31/23 08:09 BP 132/82 12/31/23 08:09 Pulse Ox 100 12/31/23 08:09 Laboratory Results - last 24 hr 12/30/23 12/30/23 12/31/23 16:00 19:31 06:09 WBC 9.22 7.35 RBC 4.38 4.04 Hgb 10.3 L 9.7 L Hct 32.7 L 30.6 L MCV 75 L 76 L MCH 23.5 L 24.0 L MCHC 31.5 L 31.7 L RDW 15.1 H 15.2 H Plt Count 266 242 MPV 8.7 8.8 Immature Gran % 0.3 0.3 Neutrophils % 71.8 60.5 Lymphocytes % 17.9 28.0 Monocytes % 7.2 7.1 Eosinophils % 2.5 3.8 Basophils % 0.3 0.3 Nucleated RBC % 0.0 0.0 Absolute Neutrophils 6.62 4.45 Absolute Lymphocytes 1.65 2.06 Absolute Monocytes 0.66 0.52 Absolute Eosinophils 0.23 0.28 Absolute Basophils 0.03 0.02 RBC Morphology See Below Polychromasia Present Microcytosis 1+ ESR 49 H VBG pH 7.39 VBG pCO2 40 L VBG pO2 29 VBG HCO3 24 VBG Total CO2 23 L VBG O2 Saturation 54 VBG Base Excess -1 Sodium 139 140 Potassium 3.7 3.7 Chloride 104 108 H Carbon Dioxide 27.3 20.4 L Anion Gap 7.7 11.6 H BUN 19 H 17 Creatinine 1.1 H 0.9 Est GFR (CKD-EPI 2020) 65.14 82.88 Glucose 153 H 131 H Calcium 9.6 9.1 Total Bilirubin 0.23 AST 17 ALT 21 Alkaline Phosphatase 68 C-Reactive Protein 14.87 H Total Protein 8.1 Albumin 3.0 L Procalcitonin < 0.1 Urine HCG, Qual Negative COVID-19 Source Nasopharynx SARS-CoV-2 (PCR) Negative Influenza Type A (PCR) Negative Influenza Type B (PCR) Negative RSV (PCR) Negative Time Spent with Patient Time Spent with Patient: 25-34 minutes Time was spent: preparing to see the patient(eg.review tests), obtaining and/or reviewing separately otained hiistory, ordering medications,tests, procedures, referring, communicating with other health before and after school daycare worker, indepentently interpreting results and counseling the patient
--- NOTE | 2023-12-31 13:52 | PHA.REVIEW2 ---
Pharmacy Admission Review Admission Clinical Review Admission Pharmacy Review: Ulcer of left foot (Acute) Ulcer of right foot (Acute) Charcot joint of right foot (Acute) Lisfranc dislocation (Acute) DVT prophylaxis (Acute) Cellulitis of foot, right (Acute) Type 2 diabetes mellitus with peripheral neuropathy (Acute) Type 2 diabetes mellitus with hyperglycemia (Acute) Status post thyroidectomy (Acute) PCOS (polycystic ovarian syndrome) (Acute) Neuropathy (Acute) Essential (primary) hypertension (Acute) lisinopril Allergy (Mild, Verified 12/30/23 15:12) Other (See Comment) metformin Allergy (Unknown, Verified 12/30/23 15:12) unknown Resuscitation Status Full Code Height 5 ft 9 in Weight 102.058 kg Pharmacy Admission Review Renal Dosing Renal Dosing: BUN 17 mg/dL (7-18) 12/31/23 06:09 Creatinine 0.9 mg/dL (0.55-1.02) 12/31/23 06:09 Medications needing adjustments: Reviewed (CrCl 105.65 mL/min, BUN decreased from 19 and SCr decreased from 0.9) List of meds needing interventions: Current medications are okay Anticoagulation Anticoagulation: Hgb 9.7 g/dL (11.2-15.7) L 12/31/23 06:09 Hct 30.6 % (36.0-46.0) L 12/31/23 06:09 Plt Count 242 10^3/uL (130-400) 12/31/23 06:09 Creatinine 0.9 mg/dL (0.55-1.02) 12/31/23 06:09 DVT Prophylaxis: Reviewed (Hgb decreased from 10.3) Medications: Enoxaparin (40mg daily) Relevant Labs Relevant Labs: ESR 49 mm/hr (0-20) H 12/30/23 16:00 Sodium 140 mmol/L (136-145) 12/31/23 06:09 Potassium 3.7 mmol/L (3.5-5.1) 12/31/23 06:09 Chloride 108 mmol/L (98-107) H 12/31/23 06:09 C-Reactive Protein 14.87 mg/dL (<or=0.5) H 12/30/23 16:00 Electrolytes, C-Reactive P, ESR: Reviewed DM Control DM Control: Glucose 131 mg/dL (74-106) H 12/31/23 06:09 Finger Stick Blood Glucose 141 1149 Finger Stick Blood Glucose 141 1149 Finger Stick Blood Glucose 155 0833 Finger Stick Blood Glucose 155 0833 DM Control: Reviewed Insulin Dosing, Diabetic Medication: Per progress note, patients last A1C was 5.6%. Has order for SS insulin and insulin regular-human concentrated (order is currently on hold). Nursing took incorrect pen from pharmacy last night, took out insulin human regular (NOT concentrated), 1 dose was given. Blood sugars were relatively stable over night. Incident was reported by pharmacy (Nicki). Cardiac Review BP, HR, EF%: Reviewed (BP WNL, HR 99) QTc Review QTc: Reviewed (No EKG on file) IV to PO Switch IV Medications: Reviewed (cefepime and vancomycin) Home Meds Home Med List reviewed: Intervened Relevent Home Meds Not ordered & why?: No external fill history and no meds come up on [facility] Two orders put in as patients own: Mounjaro and vitamin D once weekly. Per over night pharmacy report, nursing is speaking to patient about having these brought in. Day of administration (once weekly) was confirmed by over night pharmacy. Current Meds Current Medication Order Review: Intervened Comments: Added IV admission order set Pharmacy Antibiotic Review Relevant Labs: Relevant Labs 12/30/23 16:00 C-Reactive Protein 14.87 H Procalcitonin < 0.1 WBC 7.35 10^3/uL (4.4-10.8) 12/31/23 06:09 Procalcitonin < 0.1 ng/mL 12/30/23 16:00 Temperature 36.9 C Pharmacy Antibiotic Activity: C/S review and Reviewed, no change Comments: Patient is on vancomycin and cefepime, day 1, for diabetic foot wound. Current vancomycin dose is 1250mg q12h with predicted AUC of 506 and trough of 16. Level for vancomycin ordered for today at 1600. Will adjust dose as needed based on level. Per surgery consult, surgery is not indicated at this time. Blood cultures pending.
--- NOTE | 2023-12-31 13:54 | DI.RAD_ITS ---
Exam(s) XR FOOT LT COMPLETE EXAM: XR FOOT LT COMPLETE CLINICAL HISTORY: Comparison. TECHNIQUE: 2D digital imaging was performed of the left foot. Three images were obtained. AP, obli que and lateral views were obtained. COMPARISON: CR XR FOOT RT COMPLETE from 12/30/2023 FINDINGS: BONES: No acute fracture is present. No bony destructive lesion is seen. There is a small enthesophyt e at the posterior calcaneus. JOINTS: No dislocation present. The joint spaces are well maintained. SOFT TISSUE: Vascular calcifications are present. IMPRESSION: No acute abnormality. DATA REPOSITORY: RADIATION DOSE DELIVERED:
--- NOTE | 2023-12-31 15:37 | DI.VRAD_ITS ---
PROCEDURE INFORMATION: Exam: MR Right Lower Extremity Other Than Joint Without and With Contrast; Foot Exam date and time: 12/31/2023 9:31 AM Age: 38 years old Clinical indication: Pain; Other: Open wounds; Foot; Right TECHNIQUE: Imaging protocol: Magnetic resonance imaging of the right lower extremity without and with contrast. Exam focused on the foot. Contrast material: DOTAREM; Contrast volume: 20 ml; Contrast route: INTRAVENOUS (IV); COMPARISON: CR XR FOOT RT COMPLETE 12/30/2023 4:20 PM FINDINGS: Bones/joints: Lateral subluxation 1st, 2nd, 3rd metatarsals at the TMT joints. Reactive edema in the medial and middle cuneiform bones. No discrete fracture line is identified but evaluation of fine detail is limited by the large field of view. Findings are suspicious for fracture contusions. CT would be helpful in further evaluation. LIGAMENTS: Lisfranc ligament: Complete tear of the Lisfranc ligament. TENDONS: Flexor tendons of foot: Unremarkable. No evidence of tear. Tibialis posterior tendon: Unremarkable as visualized. Peroneal tendons: Longitudinal split thickness tear peroneus brevis tendon. Extensor tendons of foot: Unremarkable. No evidence of tear. Tibialis anterior tendon: Unremarkable as visualized. Tarsal canal (Sinus tarsi): Unremarkable. Tarsal tunnel: Unremarkable. Soft tissues: Diffuse soft tissue edema. Focal edema plantar aspect of the foot near the plantar fascia. Plantar fascia: Thickening of the medial base of the plantar fascia suggests sequelae of plantar fasciitis. IMPRESSION: 1. Complete tear of the Lisfranc ligament with lateral subluxation of the 1st and 3rd metatarsals of the TMT joints 2. Abnormal signal in cuneiform bones consistent with at least contusions. CT would be helpful evaluation of fractures. MRI is limited by the large field of view Dictated and Authenticated by: Kylie Collado MD. Ordering:RANJITH Lynn MD
[2023-12-31 15:41] VITALS: BP 132/84; PULSE 95; RESP 14; TEMP 36.5; O2SAT 99
[2023-12-31] MEDS: traMADol 50 MG TAB PO ×2 (16:10→22:07)
--- NOTE | 2023-12-31 16:38 | PT.INIE ---
PT Notes Visit Reasons: diabetic foot wound Physical Therapy Inpatient Initial Evaluation Date: 12/31/2023 Referring Doctor: Shane Sanchez MD PT Orders: PT CONSULT: Safety Consult for D/C. Eval for assistive device. Charcot foot with new fracture, strictly non-weight bearing, lives alone Precautions: Fall. Standard. Per Dr. Owens as of 12/31/2023, strictly NWB on the R LE. Patient Profile/Admitting Diagnosis: Priyanka is a 38-year-old female with past medical history significant for low back pain, poorly controlled DM, and osteomyelitis of lumbar vertebrae who presented to the ED on 12/30/2023 due to R foot swelling, redness and worsening of wounds. Patient is admitted fr management of cellulitis of right foot, Charcot foot with new fracture, neuropathy, ulceration of right foot, poorly controlled type 2 diabetes mellitus, and anxiety and depression. PMHX: All Active Problems (Updated 12/30/23 @ 21:17 by Shane Sanchez) Jeannette Barbosa MD Discharge planning issues (Acute) DVT prophylaxis (Acute) Cellulitis of foot, right (Acute) Bilateral shoulder pain (Acute) Left rotator cuff tear (Acute) Patient desires (Acute) Bilateral carpal tunnel syndrome (Acute) Vertigo (Acute) Anemia (Chronic) Depression (Chronic) Panic disorder (Acute) Sore throat (Acute) Type 2 diabetes mellitus with peripheral neuropathy (Acute) Type 2 diabetes mellitus with hyperglycemia (Acute) Status post thyroidectomy (Acute) Social phobia, unspecified (Acute) Skin ulcer of left great toe, limited to breakdown of skin (Acute) Skin ulcer of left great toe with fat layer exposed (Acute) Sciatica of right side (Acute) PCOS (polycystic ovarian syndrome) (Acute) Open wound of left great toe (Acute) Chronic ulcer of right foot (Acute) Neuropathy (Acute) Metabolic syndrome (Acute) Low back pain with radiation (Acute) Lightheadedness (Acute) Intertrigo (Acute) Impingement syndrome of right shoulder (Acute) Hypo-osmolality and hyponatremia (Acute) Hyperlipidemia (Acute) Homelessness (Acute) Hemangioma (Acute) GERD without esophagitis (Acute) Essential (primary) hypertension (Acute) Dysphagia (Acute) Diarrhea (Acute) Developmental disorder of scholastic skills, unspecified (Acute) Anxiety and depression (Chronic) Medical History History of endometrial biopsy (11/19/23) Dr Muñoz Follicular thyroid cancer (~2021) Menorrhagia 2U PRBC October 2023 Endo bx planned VTE (venous thromboembolism) 10/07/23 [facility] Otitis media Surgical History H/O thyroidectomy (~2021) Social History/Home Situation: Patient has been on disability. Lives alone in an apartment with no stairs. Independent with all aspects of ADLs prior to surgery. Uses online ordering for her grocery shopping at the [employer]. Right [facility] CT for all doctors appointments. Equipment Owned/DME: [facility] Subjective: Worried about her already schedued 27 medical appointments now that this new urgent isseu has croppd up. Unsure about who can take care of her cat while she is away. Her embedded case manager aware of her situation and has been attempting to ameliorate the situation. Nurse Cruz aware of pain report and has been managing. Objective: General Observation: Resting in bed. R leg anf foot swollen and with minimal erythema. Iv through R UE. Mental Status: Alert and oriented as to person, place, time, and purpose. Able to pay attention, focus, and respond appropriately. Pain: 8-9/10 pain in the whole R leg and foot Vital Signs: Closely monitored by nursing staff ROM: Right Upper Extremity: Shoulder Flexion WFL. Shoulder abduction WFL. Elbow flexion WFL. Wrist flexion WFL. Functional opening and closing of hand WFL. Left Upper Extremity: Shoulder Flexion WFL. Shoulder abduction WFL. Elbow flexion WFL. Wrist flexion WFL. Functional opening and closing of hand WFL. Right Lower Extremity: Hip flexion WFL. Hip abduction WFL. Knee flexion WFL. Ankle dorsiflexion to neutral only. Ankle plantarflexion WFL. Left Lower Extremity: Hip flexion WFL. Hip abduction WFL. Knee flexion WFL. Ankle dorsiflexion WFL. Ankle plantarflexion WFL. Strength: Right Upper Extremity: Shoulder flexors 4/5. Shoulder abductors 4/5. Elbow flexors 4/5. Elbow extensors 4/5. Aluminum Container Tester strong. Left Upper Extremity: Shoulder flexors 4/5. Shoulder abductors 4/5. Elbow flexors 4/5. Elbow extensors 4/5. Aluminum Container Tester strong. Right Lower Extremity: Hip flexors 4/5. Hip abductors 4/5. Knee flexors 4/5. Knee extensors 4/5. Ankle dorsiflexors 3-/5. Ankle plantarflexors 4-/5. Left Lower Extremity: Hip flexors 4/5. Hip abductors 4/5. Knee flexors 4/5. Knee extensors 4/5. Ankle dorsiflexors 4/5. Ankle plantarflexors 4/5. Bed Mobility/Transfers: Minimal cueing provided for use of B hands as needed for support, movement sequence, AD management, and posture to reduce fall risk and minimize pain report Supine to sit stand by assist with HOB at 30 degrees Sit to supine stand by assist Sit to stand contact guard assist with FWW Stand to sit contact guard assist with FWW Gait: Facilitated safe and correct performance of level surface ambulation with NWB on the R LE covering a short distance of 6 hops using bariatric front-wheeled walker requiring only supervision stand by assist with report of 8-9/10 pain in the NWB leg and foot. Barbara slower that her baseline but no LOB nor path deviation. Balance: Static Sitting: Normal Dynamic Sitting: Normal Static Standing: Good Dynamic Standing: Good Special Tests: Mobility Limitations Standardized Measure [facility] AM-PAC 6 clicks Basic Mobility Inpatient Short Form: Raw Score: 19 CMS Score: 42% deficit Informed Consent/Education: Patient was instructed in purpose of PT consult and plan of care. Agreeable to proceed with established PT POC to achieve personal goals. Assessment: Patient now placed on strict NWB due to ongoing Charcot foot with Lisfrance fracture pending surgical intervention once celulitis process is controlled. Patient was educated and trained on safe transfer and ambulation technique in compliance with new WB restriction to reduce fall risk and minimize injury. felt more secure with use of bariatric walker. Patient presents with clinical signs and symptoms consistent with current/admitting diagnoses that have resulted to mobility limitations, gait instability, generalized weakness, and overall ADL decline as demonstrated by the following impairment level findings: 1. Decreased strength to B UE/LE major muscle groups 2. Strictly NWB on the R LE per harpoon engagement planning operator due to orthopedic issue Impairments are contributing to the following functional limitations: 1. Increased completion time for mobility ADL performance 2. Limited WB on the R Patient is assessed as a 90151 moderate complexity based on the following: History: 38-year-old female with past medical history as indicated above Examination: As above Presentation: Evolving Decision Makin moderate complexity Goals: Goals X1 week 1. Independent gait on level surface with use of bariatric FWW for at least 30 feet without report of pain nor dyspnea 2. Independent with home exercise program 3. Fair static and dynamic standing balance/tolerance Plan of Care/Treatment Plan: 1-2x/day, 7 days/week x 1 week. Plan of care has been reviewed with the ENTERTAINER OR VARIETY ARTIST providing the service under Physical Therapy direction. Initiate Physical Therapy intervention for pain management as needed, strengthening, bed mobility, transfers, gait, stairs, balance training, and use of assistive device. DISCHARGE RECOMMENDATIONS: [] Home with no services [] [] Home with services [] [] Home with outpatient PT [] [] SNF for continued rehabilitation [] [] Air Plant Engineer Care [] [] SNF versus LTC based on ability to participate and progress [] [X] TBD based on trajectory of medical status: SNF vs PT TREATMENT CODE/TIME: 84427 x 20 minutes for 1 unit, 19661 x 10 minutes (16:00?16:30). Thank you for the opportunity to participate in the care of this patient. Amanda Tinsley PT, DPT, CLT [facility] [place], [place]
[2023-12-31 17:54] LABS: Vancomycin, Random 9.3 ug/mL
[2023-12-31] MEDS: VANCOMYCIN/WATER (PEG) 1.5 GM/300 ML BAG IVPB (18:31)
[2023-12-31 19:52] VITALS: BP 121/73; PULSE 100; RESP 14; TEMP 36.5; O2SAT 98
[2023-12-31] MEDS: Enoxaparin 40 MG/0.4 ML SYR SC (20:15)
[2024-01-01] MEDS: Acetaminophen 325 MG TAB PO ×5 (00:19→21:39)
[2024-01-01] MEDS: CEFEPIME 2 GM in Normal Saline 100 ML IVPB ×4 (00:20→23:54)
[2024-01-01] MEDS: Normal Saline 1,000 ML 80 ML IV (02:43)
[2024-01-01] MEDS: Ibuprofen 600 MG TAB PO ×4 (02:44→23:53)
[2024-01-01] MEDS: traMADol 50 MG TAB PO ×3 (04:20→21:38)
[2024-01-01] MEDS: LEVOTHYROXINE 100 MCG, LEVOTHYROXINE 75 MCG 175 MCG PO (05:43)
[2024-01-01] MEDS: VANCOMYCIN/WATER (PEG) 1.5 GM/300 ML BAG IVPB ×2 (05:44→17:45)
[2024-01-01 07:45] VITALS: BP 131/88; PULSE 99; RESP 17; TEMP 37; O2SAT 98
[2024-01-01] MEDS: amLODIPine 2.5 MG TAB PO (08:22)
[2024-01-01] MEDS: buPROPion-XL 150 MG TABCR 300 MG PO (08:23)
[2024-01-01] MEDS: Baclofen 10 MG TAB 20 MG PO ×3 (08:23→20:25)
[2024-01-01] MEDS: Docusate Sodium 100 MG CAP PO ×2 (08:23→20:25)
[2024-01-01] MEDS: Cetirizine 10 MG TAB PO (08:23)
[2024-01-01] MEDS: Gabapentin 300 MG CAP PO ×2 (08:23→20:25)
[2024-01-01] MEDS: Rosuvastatin 5 MG TAB PO (08:24)
[2024-01-01] MEDS: Normal Saline Flush 10 ML SYR IVP ×2 (08:24→20:29)
[2024-01-01] MEDS: Venlafaxine 150 MG CAPCR PO (08:24)
--- NOTE | 2024-01-01 09:55 | PGE_ITS ---
Date of Service Date of service: 01/01/24 Time of Service: 09:55 Assessment and Plan Assessment and plan (1) Sepsis: Status: Acute Assessment and plan: -patient met criteria for sepsis on admission with temperature of 100.8oF, HR of 102, and source of infection of right foot cellulitis -Continue broad coverage including MRSA and pseudomonas. -Blood cultures pending; prelim growing gram positive cocci in clusters -XR concerning for Charcot. MRI without signs of osteo -Podiatry guidance appreciated. (2) Cellulitis of foot, right: Status: Acute Assessment and plan: -as noted above (3) Neuropathy: Status: Acute Assessment and plan: -continue outpatient SNRI/gabapentin and prn iburoprofen and acetaminophen for now. (4) DVT prophylaxis: Status: Acute Assessment and plan: -high risk with h/o DVT, treat with enoxaparin (5) Type 2 diabetes mellitus with peripheral neuropathy: Status: Acute Assessment and plan: -Some recent hyperglycemia with infection but last A1c agressively controlled at 5.6%. -Continue slightly less than outpatient insulin plus sliding scale, monitor. Also has home tirzepatide weekly. (6) Status post thyroidectomy: Status: Acute Assessment and plan: has been overcorrected, just lowered dose to 175mcg, continue this Subjective Subjective Interval history since last seen: Patient states that she is feeling much better today. The pain and swelling in her leg have significantly improved and she was able to sleep last night. She understands the plan to wait for her final blood culture results before formalizing a discharge plan. Exam Narrative Exam Narrative: well appearing female laying in bed in no acute, distress, AOx4, heart RRR, lungs CTAB, abdomen soft, non-tender, non-distended, right foot with mild diffuse swelling with improvement in tednerness Objective Last Vital Signs Temp 98.6 F 01/01/24 07:45 Pulse 99 H 01/01/24 07:45 Resp 17 01/01/24 07:45 BP 131/88 01/01/24 07:45 Pulse Ox 98 01/01/24 07:45 Laboratory Results - last 24 hr 12/31/23 16:44 Random Vancomycin 9.3 Time Spent with Patient Time Spent with Patient: >50 minutes Time was spent: preparing to see the patient(eg.review tests), obtaining and/or reviewing separately otained hiistory, ordering medications,tests, procedures, referring, communicating with other health long term care pharmacist, indepentently interpreting results, counseling the patient and care coordination
[2024-01-01] MEDS: Insulin Aspart 300 UNITS/3 ML PEN SC (11:55)
[2024-01-01] MEDS: Polyethylene Glycol 3350 17 GM PACKET PO (13:47)
[2024-01-01 15:22] VITALS: BP 167/89; PULSE 102; RESP 17; TEMP 36.9; O2SAT 98
--- NOTE | 2024-01-01 16:17 | PT.INTREAT ---
PT Notes Visit Reasons: diabetic foot wound Inpatient Physical Therapy Treatment Note [facility] Date: 01/01/2024 PRECAUTIONS:Strict NWB RLE IV R forearm SUBJECTIVE: I feel so much better today then I did yesterday. I have been working on trying to get MOW set up and I am making a list of equipment I may need once I go home. I am not sure what my insurance will pay for. OBJECTIVE:supine in bed with BLE elevated agreeable to participate? PAIN: 07/26 Right foot VITALS: monitored by Nursing Therapeutic Activities (67389w 1): Direct one-on-one instruction in dynamic activities to improve functional performance. ? BED MOBILITY/TRANSFERS? Rolling L/R: Independent Supine-sit: Independent? Sit-supine: Independent ? Sit-stand: SBA ? Stand-sit: SBA? Bed-Chair: SBA with RW ?maintaining NWB LLE ? Chair-bed: SBA with RW Maintaining NWB LLE Ambulation ? Assistive Device: RW? Weight bearing: Nonweightbearing right lower extremity Assist: Standby assist ? Distance: 28 feet x 2? Deviation: 1 stand rest per 28 feet due to left shoulder discomfort ? ? Provided skilled cues and instruction on performance and technique throughout. ? Therapeutic Exercises (44142c5): Direct one-on-one instruction in therapeutic exercises to develop strength, endurance, range of motion and flexibility. ? Exercises ? Supine bilateral lower extremity x 10 reps x 2 sets toe curls, dorsiflexion, plantarflexion, ankle circles, quad sets, short arc quads ? Provided skilled instruction in proper exercise performance Provided skilled manual cues to facilitate proper muscle recruitment and/or form:B toe flexors and extensors ASSESSMENT: Patient demonstrates reduction in swelling as compared to initial evaluation. Patient demonstrating ability to perform ankle range of motion and toe flexion with little to no report of pain. She demonstrates stability in stand maintaining nonweightbearing with use of rolling walker. She is limited by left upper extremity discomfort as she advances the rolling walker. Patient reports this is a longstanding problem which she is scheduled to have assessed later in the month. PLAN: Improve mobility at nonweightbearing status, increase strength, promote balance reactions in standing to reduce risk for falls TREATMENT CODE/TIME: 05884 x 1 ( 13mins); 74129w8 (19 mins) [id number] DISCHARGE RECOMMENDATION: home with services vs SNF and medical need
[2024-01-01 16:59] LABS: Vancomycin, Random 15.8 ug/mL
--- NOTE | 2024-01-01 17:07 | PDOC.CMPRO ---
Date of service: 01/01/24 Time of Service: 17:07 Care Management Progress Note Progress Note Text Progress Note Text: Priyanka was lying in bed with her feet elevated when CM met with her. She is polite and easily engages in conversation. She feels the swelling in her leg has decreased significantly. She is extremely happy with her care and feels all the staff are going above and beyond for her. She left a message for [facility] this morning and is waiting for a return call. Discharge Potential Discharge Needs: PT Evaluation, PCP F/U Appt and Surgical F/U Appt Anticipated Barriers to Discharge: Medical Status Patient/Family Education Needs: Review discharge instructions, discuss Ask Me Three [facility]: [facility] Plan: Anticipate, Priyanka will discharge home with new services for RN, PT/OT., when medically ready for discharge. Transportation will be provided by [facility], coordinated by [facility]. Pt will follow up with community providers and her discharge plan of care as prescribed. SDOH(Care Management) Screening Will the Patient Participate in the Screening?: Yes Do you worry about having a steady place to live?: no Problems where you live: other (has a window that won't close. Has been asking to have it fixed for a year) and no known problems In the past 12 months, have you had to go without electric, gas, oil or water in your home?: no Have you or anyone in your house had to go without enough food to eat?: yes Has lack of transportation kept you from medical appointments or from doing things needed for daily living?: yes Has anyone in your support network made you feel unsafe for any reason?: no Social Determinants of Health Comments(SDOH Details): Would like to get back on Meals on Wheels Health Related Social Needs Health related social needs: food insecurity(Z59.41) and transportation insecurity(Z59.82) Health related social needs details: is connected with [facility]. Has to carefully schedule appointments as to not go over her allotted number of rides per month. Often can't afford healthy food.
--- NOTE | 2024-01-01 17:45 | CHAPLAIN ---
Priyanka was sitting up in bed. She said she's waiting to hear what the plan for her care is. She think's she will need surgery on her foot and wants to be able to make sure her two cats, Wilmer and Kvng, are cared for if she'll be here for a few days. Priyanka said she doesn't have any friends or relatives nearby. Her fiance lives in [place] but he needs to get his car repaired before he can travel here.
[2024-01-01 19:53] VITALS: BP 121/78; PULSE 102; RESP 16; TEMP 36.6; O2SAT 99
[2024-01-01] MEDS: Enoxaparin 40 MG/0.4 ML SYR SC (20:24)
[2024-01-02] MEDS: Acetaminophen 325 MG TAB PO ×4 (02:00→22:25)
[2024-01-02] MEDS: Normal Saline 1,000 ML 80 ML IV (02:08)
[2024-01-02] MEDS: VANCOMYCIN/WATER (PEG) 1.5 GM/300 ML BAG IVPB ×2 (05:27→17:43)
[2024-01-02] MEDS: LEVOTHYROXINE 100 MCG, LEVOTHYROXINE 75 MCG 175 MCG PO (05:28)
[2024-01-02] MEDS: Ibuprofen 600 MG TAB PO ×2 (05:28→20:19)
[2024-01-02] MEDS: traMADol 50 MG TAB PO ×2 (06:07→20:20)
[2024-01-02 07:45] VITALS: BP 132/89; PULSE 103; RESP 16; TEMP 36.9; O2SAT 98
[2024-01-02] MEDS: CEFEPIME 2 GM in Normal Saline 100 ML IVPB (07:58)
[2024-01-02] MEDS: Normal Saline Flush 10 ML SYR IVP ×2 (07:58→20:20)
[2024-01-02] MEDS: Baclofen 10 MG TAB 20 MG PO ×3 (07:59→20:19)
[2024-01-02] MEDS: Venlafaxine 150 MG CAPCR PO (07:59)
[2024-01-02] MEDS: Rosuvastatin 5 MG TAB PO (08:00)
[2024-01-02] MEDS: Gabapentin 300 MG CAP PO ×2 (08:00→20:20)
[2024-01-02] MEDS: buPROPion-XL 150 MG TABCR 300 MG PO (08:00)
[2024-01-02] MEDS: Docusate Sodium 100 MG CAP PO ×2 (08:01→20:19)
[2024-01-02] MEDS: amLODIPine 2.5 MG TAB PO (08:02)
[2024-01-02] MEDS: Cetirizine 10 MG TAB PO (08:02)
--- NOTE | 2024-01-02 10:10 | PDOC.CMPRO ---
Date of service: 01/02/24 Time of Service: 10:10 Care Management Progress Note Progress Note Text Progress Note Text: Priyanka was sitting up in bed when CM met with her this morning. She was bright and easily engaged. Stated she is feeling a lot better. Pain is decreased and she has been able to sleep. She is still not sure when she will be able to go home, but is eager to do so. She feels she is fairly steady with the FWW, and continues to work with PT. This CM alerted her PCP office that Priyanka is working on an application through [employer] for FLW. The application has a component that needs PCP signature. CM will continue to follow. CM spoke with [facility] today. They are able to secure a shower chair for Priyanka. Discharge Potential Discharge Needs: PCP F/U Appt, Surgical F/U Appt and Other (podiatry f/u) Anticipated Barriers to Discharge: Medical Status (awaiting final BC results, repeat cultures drawn on 01/02/24) Patient/Family Education Needs: Review discharge instructions, discuss Ask Me Three Transportation: [facility] Transportation: Private [facility] Plan: Anticipate Priyanka will discharge home with new services for RN, PT/OT when medically ready for discharge. Transportation will be provided by [facility], coordinated by CM. Pt will follow up with community providers and her discharge plan of care as prescribed. SDOH(Care Management) Screening Will the Patient Participate in the Screening?: Yes Do you worry about having a steady place to live?: no Problems where you live: other (has a window that won't close. Has been asking to have it fixed for a year) and no known problems In the past 12 months, have you had to go without electric, gas, oil or water in your home?: no Have you or anyone in your house had to go without enough food to eat?: yes Has lack of transportation kept you from medical appointments or from doing things needed for daily living?: yes Has anyone in your support network made you feel unsafe for any reason?: no Social Determinants of Health Comments(SDOH Details): Would like to get back on Meals on Wheels Health Related Social Needs Health related social needs: food insecurity(Z59.41) and transportation insecurity(Z59.82) Health related social needs details: is connected with [facility]. Has to carefully schedule appointments as to not go over her allotted number of rides per month. Often can't afford healthy food. Anticipated HH Services Anticipated HH Services at Discharge [facility] PT and RN.
[2024-01-02] MEDS: Polyethylene Glycol 3350 17 GM PACKET PO (10:17)
--- NOTE | 2024-01-02 10:31 | W.PM.PROGNOT ---
Date of Service Date of service: 01/02/24 Time of Service: 10:31 Assessment and Plan Assessment and plan (1) Sepsis: Status: Acute Assessment and plan: -patient met criteria for sepsis on admission with temperature of 100.8oF, HR of 102, and source of infection of right foot cellulitis -Continue broad coverage including MRSA and pseudomonas. -Blood cultures pending; prelim growing Staph sapro, awaiting final sensitivities and repeat culture results which were drawn 01/01 -XR concerning for Charcot. MRI without signs of osteo -Podiatry guidance appreciated. (2) Cellulitis of foot, right: Status: Acute Assessment and plan: -as noted above (3) Neuropathy: Status: Acute Assessment and plan: -continue outpatient SNRI/gabapentin and prn iburoprofen and acetaminophen for now. (4) DVT prophylaxis: Status: Acute Assessment and plan: -high risk with h/o DVT, treat with enoxaparin (5) Type 2 diabetes mellitus with peripheral neuropathy: Status: Acute Assessment and plan: -Some recent hyperglycemia with infection but last A1c agressively controlled at 5.6%. -Continue slightly less than outpatient insulin plus sliding scale, monitor. Also has home tirzepatide weekly. (6) Status post thyroidectomy: Status: Acute Assessment and plan: has been overcorrected, just lowered dose to 175mcg, continue this Subjective Subjective Interval history since last seen: Patient continues to state that she is doing well. She also understands the plan to wait for final culture results before determining antibiotic course. Exam Narrative Exam Narrative: well appearing female laying in bed in no acute, distress, AOx4, heart RRR, lungs CTAB, abdomen soft, non-tender, non-distended, right foot with mild diffuse swelling with improvement in tednerness Objective Last Vital Signs Temp 98.4 F 01/02/24 07:45 Pulse 103 H 01/02/24 07:45 Resp 16 01/02/24 07:45 BP 132/89 01/02/24 07:45 Pulse Ox 98 01/02/24 07:45 Laboratory Results - last 24 hr 01/01/24 12:12 Random Vancomycin 15.8 Time Spent with Patient Time Spent with Patient: >50 minutes Time was spent: preparing to see the patient(eg.review tests), obtaining and/or reviewing separately otained hiistory, ordering medications,tests, procedures, referring, communicating with other health healthcare or medical, indepentently interpreting results, counseling the patient and care coordination
--- NOTE | 2024-01-02 11:52 | PT.INTREAT ---
PT Notes Visit Reasons: diabetic foot wound Inpatient Physical Therapy Treatment Note [facility] Date: 01/02/2024 PRECAUTIONS:IV right brachium NWB RLE SUBJECTIVE: I have been doing my ankle and toe exercises throughout the night and I thinnk I can move my big toe more OBJECTIVE:Pt presents supine with BLE elevated on heel positioner. She is engaging and agreeable to participate ? PAIN: left shoulder 3/10 right foot 2/10 ( after pain meds) VITALS: monitored by Nursing ? Therapeutic Activities (13581f0): Direct one-on-one instruction in dynamic activities to improve functional performance. ? BED MOBILITY/TRANSFERS? Rolling L/R: Independent Supine-sit: Independent? Sit-supine: Independent? Sit-stand: Independent ? Stand-sit: Independent? Bed-Chair: Independent?With RW ? Chair-bed: Independent with RW Provided skilled cues and instruction on performance and technique throughout. Patient education regarding pacing and breathing techniques to maximize activity tolerance? Therapeutic Exercises (21850s7): Direct one-on-one instruction in therapeutic exercises to develop strength, endurance, range of motion and flexibility. ? Exercises ? Supine toe curls, Inversion/eversion, Gastroch and soleus PF , DF with knee flexion and extension, ankle circles x 2 sets 10 reps Ambulation ? Assistive Device: RW? Weight bearing: NWB RLE Assist: SBA? Distance:? 40 feet? Deviation: Stand rest after 12 feet to rest BUE Hopping to maintain NWB ? Provided skilled instruction in proper exercise performance Provided skilled manual cues to facilitate proper muscle recruitment and/or form: [] ASSESSMENT:? Pt demonstrates improvement in AROM Right toe flexion including Great toe as compared to previos session. Today she is also able to isolate Eversion and Inversion BLE L>R. She becomes fatigued with ambulation d/t NWB RLE. Her distance of ambulation is limited to maintain integrity of her left foot. Pt continues on IV Abx and is awaiting possible surgery on Friday01/06/24. Consider adding UE strengthening program next session. PLAN: Continue with PT for strengthening, ROM and functional mobility in prep for discharge to home TREATMENT CODE/TIME: 32128 x 1 13 mins; 95735 x 1 10 mins ( [id number]) DISCHARGE RECOMMENDATION: Home with PT when medically able
--- NOTE | 2024-01-02 14:25 | PDOC.CMACT ---
Date of service: 01/02/24 Time of Service: 14:26 Care Management Activity Note Activity Note Text Activity Note Text: Spoke with Jeff Murray at [facility], Priyanka's contact. She is able to secure a shower chair for Priyanka, no problem. CM will notify Priyanka.
--- NOTE | 2024-01-02 15:26 | CMACTNOTE_ITS ---
Care Management Activity Note Activity Note Text Activity Note Text: Called [employer] to check in about Meals on Wheels. Priyanka is <60, but on disability, CM is wondering if MOW available for this client. [facility] closed at 11am today. Did not leave a VM. CM also discussed with client the cost for the heel lift positioner that PT provider her while inpatient. Available from [email or web address] [phone] for $115 plus $34.95 shipping. Priyanka has given permission for CM to refer to [facility].
[2024-01-02 15:39] VITALS: BP 119/75; PULSE 103; RESP 17; TEMP 36.6; O2SAT 98
[2024-01-02] MEDS: Enoxaparin 40 MG/0.4 ML SYR SC (20:19)
[2024-01-03] MEDS: Acetaminophen 325 MG TAB PO ×2 (02:12→05:23)
[2024-01-03] MEDS: traMADol 50 MG TAB PO (02:12)
[2024-01-03] MEDS: Ibuprofen 600 MG TAB PO ×2 (02:12→11:30)
[2024-01-03] MEDS: VANCOMYCIN/WATER (PEG) 1.5 GM/300 ML BAG IVPB ×2 (05:23→17:52)
[2024-01-03] MEDS: LEVOTHYROXINE 100 MCG, LEVOTHYROXINE 75 MCG 175 MCG PO (05:23)
[2024-01-03 06:53] LABS: Platelet Count 260 10^3/uL (130-400)
[2024-01-03] MEDS: Baclofen 10 MG TAB 20 MG PO ×3 (08:21→21:29)
[2024-01-03] MEDS: buPROPion-XL 150 MG TABCR 300 MG PO (08:21)
[2024-01-03] MEDS: Venlafaxine 150 MG CAPCR PO (08:21)
[2024-01-03] MEDS: Cetirizine 10 MG TAB PO (08:21)
[2024-01-03] MEDS: Docusate Sodium 100 MG CAP PO ×2 (08:21→21:29)
[2024-01-03] MEDS: Rosuvastatin 5 MG TAB PO (08:22)
[2024-01-03] MEDS: amLODIPine 2.5 MG TAB PO (08:22)
[2024-01-03] MEDS: Gabapentin 300 MG CAP PO ×2 (08:22→21:29)
[2024-01-03] MEDS: Normal Saline Flush 10 ML SYR IVP ×2 (08:26→21:28)
[2024-01-03 08:42] VITALS: BP 127/77; PULSE 93; RESP 17; TEMP 37.2; O2SAT 100
--- NOTE | 2024-01-03 10:05 | W.PM.PROGNOT ---
Date of Service Date of service: 01/03/24 Time of Service: 10:05 Assessment and Plan Assessment and plan (1) Sepsis: Status: Acute Assessment and plan: -patient met criteria for sepsis on admission with temperature of 100.8oF, HR of 102, and source of infection of right foot cellulitis -Continue broad coverage including MRSA and pseudomonas. -Blood cultures pending; prelim growing Staph sapro, awaiting final sensitivities and repeat culture results which were drawn 01/01 -XR concerning for Charcot. MRI without signs of osteo -Podiatry guidance appreciated. (2) Cellulitis of foot, right: Status: Acute Assessment and plan: -as noted above (3) Neuropathy: Status: Acute Assessment and plan: -continue outpatient SNRI/gabapentin and prn iburoprofen and acetaminophen for now. (4) DVT prophylaxis: Status: Acute Assessment and plan: -high risk with h/o DVT, treat with enoxaparin (5) Type 2 diabetes mellitus with peripheral neuropathy: Status: Acute Assessment and plan: -Some recent hyperglycemia with infection but last A1c agressively controlled at 5.6%. -Continue slightly less than outpatient insulin plus sliding scale, monitor. Also has home tirzepatide weekly. (6) Status post thyroidectomy: Status: Acute Assessment and plan: has been overcorrected, just lowered dose to 175mcg, continue this Subjective Subjective Interval history since last seen: Patient states that she is doing well today. She understands the plan to wait for final blood culture sensitivities as well as for results from repeat blood cultures from 01/01. Otherwise she has no complaints or concerns at this time. Exam Narrative Exam Narrative: well appearing female laying in bed in no acute, distress, AOx4, heart RRR, lungs CTAB, abdomen soft, non-tender, non-distended, right foot with mild diffuse swelling with improvement in tednerness Objective Last Vital Signs Temp 99.0 F 01/03/24 08:42 Pulse 93 H 01/03/24 08:42 Resp 17 01/03/24 08:42 BP 127/77 01/03/24 08:42 Pulse Ox 100 01/03/24 08:42 Laboratory Results - last 24 hr 01/03/24 06:30 Plt Count 260 Time Spent with Patient Time Spent with Patient: >50 minutes Time was spent: preparing to see the patient(eg.review tests), obtaining and/or reviewing separately otained hiistory, ordering medications,tests, procedures, referring, communicating with other health career development coordinator/teacher, indepentently interpreting results, counseling the patient and care coordination
[2024-01-03 15:17] VITALS: BP 127/77; PULSE 93; RESP 17; TEMP 37.2; O2SAT 100
[2024-01-03] MEDS: Enoxaparin 40 MG/0.4 ML SYR SC (21:27)
[2024-01-03 23:31] VITALS: BP 109/71; PULSE 92; RESP 16; TEMP 37.2; O2SAT 98
[2024-01-04] MEDS: VANCOMYCIN/WATER (PEG) 1.5 GM/300 ML BAG IVPB (05:55)
[2024-01-04] MEDS: LEVOTHYROXINE 100 MCG, LEVOTHYROXINE 75 MCG 175 MCG PO (05:56)
[2024-01-04] MEDS: Normal Saline Flush 10 ML SYR IVP ×2 (05:57→08:40)
[2024-01-04] MEDS: Acetaminophen 325 MG TAB PO ×2 (06:07→14:57)
[2024-01-04] MEDS: Venlafaxine 150 MG CAPCR PO (08:01)
[2024-01-04] MEDS: Baclofen 10 MG TAB 20 MG PO ×2 (08:01→14:55)
[2024-01-04] MEDS: Rosuvastatin 5 MG TAB PO (08:01)
[2024-01-04] MEDS: buPROPion-XL 150 MG TABCR 300 MG PO (08:01)
[2024-01-04] MEDS: amLODIPine 2.5 MG TAB PO (08:01)
[2024-01-04] MEDS: Docusate Sodium 100 MG CAP PO (08:01)
[2024-01-04] MEDS: Cetirizine 10 MG TAB PO (08:01)
[2024-01-04] MEDS: Gabapentin 300 MG CAP PO (08:02)
[2024-01-04 08:28] VITALS: BP 101/66; PULSE 100; RESP 17; TEMP 36.8; O2SAT 98
[2024-01-04 09:15] LABS: HCT 31.9 % (36.0-46.0); HGB 10.1 g/dL (11.2-15.7); MCH 23.7 pg (27.0-33.0); MCHC 31.7 % (32.0-36.0); MPV 8.5 fL (8.0-11.0); Platelet Count 290 10^3/uL (130-400); RBC 4.26 10^6/uL (3.93-5.22); RDW 15.6 % (11.7-14.6); RDW-SD 42.3 fL; WBC 8.76 10^3/uL (4.4-10.8)
[2024-01-04 09:30] LABS: MCV 75 fL (80-95)
[2024-01-04] MEDS: Ibuprofen 600 MG TAB PO (10:52)
--- NOTE | 2024-01-04 11:49 | PT.INNT ---
PT Notes Visit Reasons: diabetic foot wound Patient currently on service for PT intervention M-F. She's been ambulating with FWW to maintain NWB status RLE. Reports that she is hoping to return home, possibly as soon as today. She does not have an AD at home and requires issuing of FWW for safe ambulation prior to discharge. Issued FWW and fitted to comfortable height. Will continue PT intervention if remaining in hospital, and recommend HH PT upon discharge.
[2024-01-04] MEDS: Insulin Aspart 300 UNITS/3 ML PEN SC (12:22)
[2024-01-04 13:31] VITALS: O2SAT 98
--- NOTE | 2024-01-04 14:06 | PDOC.CMDIS ---
Date of service: 01/04/24 Time of Service: 14:06 LACE Index Scoring Tool Questions: Length of Stay (in days): 4 - 6 Was the patient admitted via the E.D.?: Yes Comorbidities: Diabetes w/o Complication E.D. Visits: 1 Answers: Total Score: 9 Risk of Readmission: Low Risk Care Management Discharge Plan Reason for Hospitalization: diabetic foot wound Discharge Plan: Priyanka will return home today with new orders for HH RN, PT, OT, ARCHITECTURAL RENDERER. She is connected with [facility], who is assisting her with getting a shower chair. She is interested in MOW; CM contacted [facility] to support this, but it will need community follow up. CM requested that she have some food provided by the kitchen prior to discharge. PT provided a FWW for mobility. Her drove her home via private vehicle. She will follow up with her PCP and discharge plan of care. She is happy to return home. Patient/Family Education Needs: Review discharge instructions and limitations, discussion of self care needs including ask me three. Services Needed at Discharge: Home Delivered Meals ([facility], [facility]), Home Health Care Services (new HH RN, PT, OT, ARCHITECTURAL RENDERER) and Transportation ([facility] private vehicle) SDOH Health Related Social Needs: Health related social needs food insecurity, transpo insecurity Health related social needs details is connected with [facility]. Has to carefully schedule appointments as to not go over her allotted number of rides per month. Often can't afford healthy food. Health related social needs: food insecurity(Z59.41) and transportation insecurity(Z59.82) Health related social needs details: is connected with [facility]. Has to carefully schedule appointments as to not go over her allotted number of rides per month. Often can't afford healthy food. Referrals and interventions: help with meals on wheels Care Management Referrals: PCP CCC (Spoke to CCC at [facility]. Priyanka is looking to get meals on wheels through [facility].)
--- NOTE | 2024-01-04 14:59 | PDOC.HHF2F_ITS ---
Home Health Referral Home Health Orders Clinical synopsis of why skilled professionals are needed: Diabetes with foot infection and Charcot foot Medical diagnosis necessitation home health referral: Charcot foot fracture, diabetes, cellulitis of foot Registered Nurse: Check all that apply Instruct on new or changed medication(s)/assess compliance: Ordered Assess for exacerbation of medical condition, instruct patient/caregivers on signs and symptoms to report for early detection: Ordered Physical Therapist: Check all that apply Increase strength & endurance for safe mobility at home: Ordered To design/establish home maintenance program: Ordered Fall reduction therapy program for patient with history of frequent falls: Ordered Home safety evaluation and teaching/gait training including stair management (if applicable): Ordered Better Breathing Program: Ordered Occupational Therapist: Evaluate and treat for patient unable to perform ADL/IADL/self-care: Ordered Volunteer Fire Fighter: Assist with community resources: Ordered Home Bound Status Requires the aid of supportive device (check all that apply): Walker Describe why leaving home would require a considerable and taxing effort: Safety Concerns: describe (fall risk, non-weight bearing right foot, sensory neuropathy) Encounter Date and Reason: I certify that a FTF encounter for this patient was performed on January 04, 2024 and that such encounter was related to the primary reason the patient requires home health services. The encounter was conducted in the following manner: * By me as the certifying physician, DIRECTOR OF MANUFACTURING OPERATIONS, PA or * By an inpatient physician, DIRECTOR OF MANUFACTURING OPERATIONS or PA during an inpatient stay who communicated findings to me, Certification And Authentication I certify that I composed the above information based on my clinical judgment relating to this patient's medical condition and, if applicable, clinical findings communicated to me by the NPP or inpatient physician who performed the FTF encounter. Name of Provider that will be monitoring home health services: Jessica Tran
--- NOTE | 2024-01-04 15:05 | W.PM.DS.N ---
Date of service: 01/04/24 Time of Service: 15:07 DS: Diagnosis Discharge Diagnosis (1) Sepsis: Status: Acute (2) Cellulitis of foot, right: Status: Acute (3) Neuropathy: Status: Acute (4) DVT prophylaxis: Status: Acute (5) Type 2 diabetes mellitus with peripheral neuropathy: Status: Acute (6) Status post thyroidectomy: Status: Acute Discharge Plan Disposition Patient Disposition: Home W/Home Health Services Condition: Good Discharge Details Reason For Visit: diabetic foot wound Admit Date/Time: 12/30/23 17:45 Admit Provider: Shane Sanchez Attending Provider: Shane Sanchez Primary Care Provider: Jessica Tran Hospital Course Hospital Course: 38 yo F with IDDM and severe peripheral neuropathy presented with progressive pain and swelling in her right foot with tenderness up her leg to the medial thigh with inflammed shallow ulcerations on her right foot. CRP was elevated at 14.87 and ESR was 49. XR and MRI both demonstrated an acute Lis Franc fracture. There was no signs of osteomyelitis on MRI. Vascular ultrasound was negative for DVT. Dr. Owens felt that this was a developing Charcot foot and she should be strictly non-weight bearing. Dr. Owens was not sure there was an infection, but 1/ blood cultures grew staph saprophyticus so she was continued on vancomycin. Repeat blood cultures from 01/01 were negative x 48hours. Her leg pain and swelling resolved and her skin infection cleared clinically. Given the simple bacteremia with coag negative staph, no known foreign body involved in the infection, it was felt 5 days of vancomycin was appropriate treatment per Uptodate recommendations. She was discharged with an additional 5 days or oral doxycycline to finish treatment of local skin infection. Physical therapy was consulted with the patient, she was mobile with [facility] PT recommended. Home Meds and New Rx's Prescriptions: New levothyroxine 175 mcg Tablet 175 mcg PO 0600 Qty: 90 0RF doxycycline hyclate 100 mg tablet 100 mg PO BID 5 Days Qty: 10 0RF Continued megestrol 40 mg tablet 40 mg PO DAILY Qty: 30 3RF cetirizine [Zyrtec] 10 mg tablet 10 mg PO DAILY bupropion HCl [Wellbutrin XL] 300 mg tablet extended release 24 hr 300 mg PO QAM Qty: 30 6RF doxepin 6 mg tablet 6 mg PO QHS PRN (Reason: sleep) Qty: 30 6RF Rx Instructions: within 30min of bedtime and not within 3 hours of a meal levothyroxine [Synthroid] 200 mcg tablet 200 mcg PO DAILY Qty: 30 6RF rosuvastatin 5 mg tablet 5 mg PO DAILY Qty: 30 6RF cholecalciferol (vitamin D3) 1,250 mcg (50,000 unit) capsule 1,250 mcg PO QWEEK Qty: 12 3RF venlafaxine 150 mg tablet extended release 24hr 150 mg PO QAM Qty: 28 2RF calcium carbonate 200 mg calcium (500 mg) tablet,chewable 200 mg PO PRN Mounjaro 2.5 mg/0.5 mL pen injector 5 mg subcut QWEEK docusate sodium 100 mg capsule 100 mg PO BID Qty: 60 1RF amlodipine 2.5 mg tablet 2.5 mg PO DAILY Qty: 30 6RF gabapentin 400 mg capsule 300 mg PO BID Humulin R U-500 (Conc) Kwikpen 500 unit/mL (3 mL) insulin pen See Rx Instructions subcut BID Rx Instructions: 70 units subcutaneously twice a day; baclofen 20 mg tablet 20 mg PO TID Discharge Instructions Instructions: Foot Care for Diabetics Additional Instructions: You should not put any weight on the right foot. You will need to follow up with Dr. Owens from podiatry You should take 5 more days of antibiotics to finish treating your foot infection. Come back if it is getting worse. Referrals: Marnie Owens DPM [[facility] STAFF PHYSICIAN] - Activity:: Activity as Tolerated Equipment/Supplies:: Walker Diet:: Carb Counting Discharge Orders Discharge Orders: Discharge Order (Routine); Ordered 01/04/24 Ordered By: Shane Sanchez DS: Summary Time Spent with Patient providing and/or coordinating discharge services: Greater than 30 minutes Status at Discharge Functional status at discharge: uses cane/walker Overall status at discharge: patient is progressing back to baseline Mental Status: mental status grossly normal Speech and Movement: speech and movement normal Mood: congruent mood Affect: normal affect Quality:SDOH Health Related Social Needs: Health related social needs food insecurity, transpo insecurity Health related social needs details is connected with RCT. Has to carefully schedule appointments as to not go over her allotted number of rides per month. Often can't afford healthy food. Health related social needs details: is connected with RCT. Has to carefully schedule appointments as to not go over her allotted number of rides per month. Often can't afford healthy food. Referrals and interventions: help with meals on wheels Exam Narrative Exam Narrative: well appearing female laying in bed with feet up, in no acute distress, AOx4. Heart RRR, lungs CTAB, abdomen soft, non-tender, non-distended, right foot with only subtle swelling with minimal tenderness medially. No longer tender up calf or in thigh. No pain with ROM. No open wounds on skin. Psych Mental Status: mental status grossly normal Speech and Movement: speech and movement normal Mood: congruent mood Affect: normal affect DS: Data Vitals/I&O Vitals and I&O: Vital Signs Temperature 36.8 C 01/04/24 08:28 Temperature Source Tympanic 01/04/24 08:28 Pulse 100 H 01/04/24 08:28 Pulse Rhythm Regular 01/04/24 13:31 Respiratory Rate 17 01/04/24 08:28 Respiratory Effort Normal 01/04/24 13:31 Respiratory Depth Normal 01/04/24 13:31 Respiratory Pattern Normal 01/04/24 13:31 Blood Pressure 101/66 01/04/24 08:28 Blood Pressure Position Sitting 12/30/23 15:05 Pulse Oximetry 98 01/04/24 13:31 Oxygen Delivery Method Room Air 01/04/24 13:31 Oxygen Flow Rate 0 01/04/24 13:31 Pain Level 5 01/04/24 08:28 Comment RN notified of vitals 01/01/24 15:22 Intake & Output 01/03/24 01/04/24 01/04/24 23:59 11:59 23:59 Intake Total 800 / 1500 20 Balance 800 / 1500 Intake: IV 300 / 600 Oral 500 / 900 Other: Urine Color Yellow Urine Appearance Clear Clear Clear Comment pT stated she voided. no C/O s/s of UTI Voiding Methods Toilet Toilet Toilet Data Completed and Pending Labs on day of discharge: Labs from last 24 hours 01/04/24 09:00 WBC 8.76 RBC 4.26 Hgb 10.1 L Hct 31.9 L MCV 75 L MCH 23.7 L MCHC 31.7 L RDW 15.6 H Plt Count 290 MPV 8.5 Preliminary micro results at discharge 01/02/24 10:55 Blood Culture - Preliminary Blood NO GROWTH 48 HOURS 01/02/24 11:05 Blood Culture - Preliminary Blood NO GROWTH 48 HOURS 12/30/23 16:00 Blood Culture - Preliminary Blood NO GROWTH 96 HOURS 12/30/23 16:30 Blood Culture - Preliminary Blood Staphylococcus Saprophyticus PFSH All Active Problems (Updated 01/01/24 @ 09:58 by Raghavendra Hines MD) Sepsis (Acute) Ulcer of left foot (Acute) Ulcer of right foot (Acute) Charcot joint of right foot (Acute) Lisfranc dislocation (Acute) Discharge planning issues (Acute) DVT prophylaxis (Acute) Cellulitis of foot, right (Acute) Bilateral shoulder pain (Acute) Left rotator cuff tear (Acute) Patient desires (Acute) Bilateral carpal tunnel syndrome (Acute) Vertigo (Acute) Anemia (Chronic) Depression (Chronic) Panic disorder (Acute) Sore throat (Acute) Type 2 diabetes mellitus with peripheral neuropathy (Acute) Type 2 diabetes mellitus with hyperglycemia (Acute) Status post thyroidectomy (Acute) Social phobia, unspecified (Acute) Skin ulcer of left great toe, limited to breakdown of skin (Acute) Skin ulcer of left great toe with fat layer exposed (Acute) Sciatica of right side (Acute) PCOS (polycystic ovarian syndrome) (Acute) Open wound of left great toe (Acute) Chronic ulcer of right foot (Acute) Neuropathy (Acute) Metabolic syndrome (Acute) Low back pain with radiation (Acute) Lightheadedness (Acute) Intertrigo (Acute) Impingement syndrome of right shoulder (Acute) Hypo-osmolality and hyponatremia (Acute) Hyperlipidemia (Acute) Homelessness (Acute) Hemangioma (Acute) GERD without esophagitis (Acute) Essential (primary) hypertension (Acute) Dysphagia (Acute) Diarrhea (Acute) Developmental disorder of scholastic skills, unspecified (Acute) Anxiety and depression (Chronic) Medical History History of endometrial biopsy (11/19/23) Dr Muñoz Follicular thyroid cancer (~2021) Menorrhagia 2U PRBC October 2023 Endo bx planned VTE (venous thromboembolism) 10/07/23 [facility] Otitis media Surgical History H/O thyroidectomy (~2021) Social History Smoking/Tobacco Use Status: Never Second Hand Exposure: No Smoking risk assessment performed?: Yes Alcohol Intake: never Drug use: Never Substance use type: does not use Adopted: No Caregiver/Support person: No Foster care: No Household members: none Housing: apartment Number of Children: 0 number of grandchildren: 0 Communication Needs: Corrective Lenses and Cannot Read Education Level: high school Details: special diploma from Do you need help understanding health information?: Always current occupation: [employer] Pets and animals: Yes (2) Pets and animals: cat(s) Sexually active: Yes Do you think of yourself as: straight/heterosexual Current gender identity: female What is your relationship status?: never How often do you talk on the phone with friends or family?: once per week How often do you get together with friends or relatives?: never Do you belong to any clubs or organized social groups?: no Panel score (0-1 are the most socially isolated patients): 0 What type of physical activity do you participate in: regular exercise Duration: < 15 minutes/day Frequency: 1-2 times per week Seatbelt use: sometimes Helmet use: No Drive intox or ride w/intox seasonal driver: No Do you feel safe at home: Yes Do you feel safe in your relationship?: Yes Additional Social history: Has apartment in [facility]. Male partner in [place]. On SSDI due to medical and learning disability Female Reproductive History Menstrual control method: none History History 0 Para Hx # Term Pregnancies Multiple births Hx # Pregnancies Ectopic pregnancies AB induced Hx Number of Living Children AB spontaneous Time Spent with Patient Time Spent with Patient: 45-69 minutes Time was spent: preparing to see the patient(eg.review tests), obtaining and/or reviewing separately otained hiistory, ordering medications,tests, procedures, referring, communicating with other health customer care associate, indepentently interpreting results, counseling the patient and care coordination
[2024-01-04 15:15] VITALS: BP 110/69; PULSE 102; RESP 17; TEMP 37.3; O2SAT 98
== END 2024-01-04 16:14 | disposition home health service (06) | DRG 872 ==
LOC: ER 16:45 → MS 18:49
PROVIDERS: Emergency Medicine; Internal Medicine; Admitting Provider Family Medicine; Emergency Provider Emergency Medicine; PCP Nurse Practitioner; Visit Provider Family Medicine
DX: L03.115 Cellulitis of right lower limb (principal); E87.1 Hypo-osmolality and hyponatremia; E28.2 Polycystic ovarian syndrome; F32.A Depression, unspecified; E11.42 Type 2 diabetes mellitus with diabetic polyneuropathy; I10 Essential (primary) hypertension; E89.0 Postprocedural hypothyroidism; M14.671 Charcot's joint, right ankle and foot; L97.519 Non-pressure chronic ulcer of other part of right foot with unspecified severity; L97.529 Non-pressure chronic ulcer of other part of left foot with unspecified severity; A41.1 Sepsis due to other specified staphylococcus; Z86.718 Personal history of other venous thrombosis and embolism; N92.6 Irregular menstruation, unspecified; M75.102 Unspecified rotator cuff tear or rupture of left shoulder, not specified as traumatic; G56.03 Carpal tunnel syndrome, bilateral upper limbs; D64.9 Anemia, unspecified; F41.0 Panic disorder [episodic paroxysmal anxiety]; E11.65 Type 2 diabetes mellitus with hyperglycemia; M54.41 Lumbago with sciatica, right side; M75.41 Impingement syndrome of right shoulder; E78.5 Hyperlipidemia, unspecified; K21.9 Gastro-esophageal reflux disease without esophagitis; F81.9 Developmental disorder of scholastic skills, unspecified; Z85.850 Personal history of malignant neoplasm of thyroid
CPT/HCPCS: 00123; 36410; 36415; 36416; 80048; 80053; 82805; 82962; 84145; 85027; 85652; 87040; 87077; 87637; 96365; 96367; 97110; 97162; 97530; 99285; J1650; J3490; 73630; 73720; 80202; 81025; 85025; 85049; 86140; 87186; 93971; 99222; 99231; 99233; 99239; J0692; J1815; J3370; J3372

== ENCOUNTER 2024-01-06 01:27 | Outpatient (CLI) | payer MEDICARE, MEDICAID, SELFPAY ==
--- NOTE | 2024-01-06 08:20 | DI.MRI_ITS ---
Exam(s) MR UPPER JOINT LT WO EXAM: MR UPPER JOINT LT WO CLINICAL HISTORY: PAIN,lt rotator cuff tear,m75.102. TECHNIQUE: Multiplanar multisequence MRI was performed. COMPARISON: Plain films 15 September 2023 FINDINGS: BONES: There is no fracture or contusion pattern. Red marrow reconversion. JOINTS:The acromioclavicular joint is normal. The glenohumeral joint shows a small amount of fluid. TENDONS: Supraspinatus: Marked thickening and high signal consistent severe tendinosis. No focal tear is visi ble. Infraspinatus: Unremarkable. Subscapularis: Unremarkable. Teres Minor: Unremarkable. Biceps and [place]: Unremarkable. MUSCLES: Unremarkable. GLENOID LABRUM: Unremarkable on this noncontrast examination. SOFT TISSUES: Unremarkable. OTHER: Subacromial and subdeltoid bursae shows minimal fluid.. IMPRESSION: Severe supraspinatus tendinitis. DATA REPOSITORY:
== END 2024-01-06 01:47 ==
PROVIDERS: PCP Nurse Practitioner; Visit Provider Student in an Organized Health Care Education/Training Program
DX: M75.22 Bicipital tendinitis, left shoulder (principal)
CPT/HCPCS: 73221

== ENCOUNTER 2024-01-13 02:16 | Outpatient (CLI) | payer MEDICARE, MEDICAID, SELFPAY ==
--- NOTE | 2024-01-13 10:59 | DI.RAD_ITS ---
Exam(s) XR FOOT RT COMPLETE EXAM: XR FOOT RT COMPLETE CLINICAL HISTORY: rt foot pain,M79.671,LISFRANC DISLOCATION,S93.326A,M79.671. TECHNIQUE: 2D digital imaging was performed. COMPARISON: CR XR FOOT RT COMPLETE from 12/30/2023 FINDINGS: 3 views Again noted is complete disruption of the main Lisfranc joint with significant offset the metatarsal bases relative to the cuneiform bones and there is also element fragmentation now evident dorsally on the lateral view which is probably from the the medial and middle cuneiform bones. There are no obv ious metatarsal base fractures. IMPRESSION: Severe Lisfranc injury as described above. DATA REPOSITORY: RADIATION DOSE DELIVERED:
== END 2024-01-13 02:36 ==
LOC: DI 02:16
PROVIDERS: PCP Nurse Practitioner; Visit Provider Podiatrist
DX: M79.671 Pain in right foot (principal)
CPT/HCPCS: 73630

== ENCOUNTER 2024-02-04 02:12 | Outpatient (CLI) | payer MEDICARE, MEDICAID, SELFPAY ==
--- NOTE | 2024-02-04 12:59 | DI.RAD_ITS ---
Exam(s) XR FOOT RT COMPLETE EXAM: XR FOOT RT COMPLETE CLINICAL HISTORY: monitor change,LISFRANC DISLOCATION,CHARCOT JOINT,M14.671,S93.326A. TECHNIQUE: 2D digital imaging was performed. Three views. COMPARISON: CR XR FOOT RT COMPLETE from 01/13/2024 FINDINGS: BONES: No acute fracture is present. No bony destructive lesion is seen. Multiple bony fragments aga in noted dorsal tarsal metatarsal joint region. JOINTS: Abnormal alignment of the tarsal metatarsal joints with Charcot appearance. Findings appear unchanged from the previous exam. SOFT TISSUE: Vascular calcifications. Soft tissue swelling at the dorsum of the foot. IMPRESSION: Stable appearance of Charcot foot. DATA REPOSITORY: RADIATION DOSE DELIVERED:
== END 2024-02-04 02:32 ==
LOC: DI 02:12
PROVIDERS: PCP Nurse Practitioner; Visit Provider Podiatrist
DX: M14.671 Charcot's joint, right ankle and foot (principal)
CPT/HCPCS: 73630

== ENCOUNTER 2024-02-12 10:18 | Emergency (ER) | payer MEDICARE, MEDICAID, SELFPAY ==
[2024-02-12] VITALS (34 sets, daily range): BP systolic 118–134; BP diastolic 68–86; PULSE 107–126; RESP 18–34; TEMP 36.2–36.6; O2SAT 94–98
--- NOTE | 2024-02-12 10:15 | RT.EKG_ITS ---
APPROVED REPORT Exam: Resting ECG Reason for Exam: Dyspnea Patient Location: E HR:120 bpm ECG Measurements Heart Rate 120 AXIS HI 160 P 59 QRSd 92 QRS 129 QT 323 T 51 QTc 457 Conclusion Sinus tachycardia...rate> 99 Right axis deviation...QRS axis (100,269) Low voltage, precordial leads...precordial leads <1.0mV Consider anteroseptal infarct...Q >30mS, dimin R, V1-V2 sinus tachycardia, normal axis, non ischemic
--- NOTE | 2024-02-12 11:06 | W.ED.GENAD ---
Discharge Plan Disposition Patient Disposition: Transfer-Acute Inpatient Care Specific Acute Inpt Facility: [facility] Condition: Stable Discharge Details Chief Complaint: Chest Pain Clinical Impression: Pulmonary embolism, Saddle pulmonary embolus Primary Care Provider: Jessica Tran ED Provider: Javier Verdin Home Meds and New Rx's Prescriptions: No Action megestrol 40 mg tablet 40 mg PO DAILY Qty: 30 3RF cetirizine [Zyrtec] 10 mg tablet 10 mg PO DAILY cholecalciferol (vitamin D3) 1,250 mcg (50,000 unit) capsule 1,250 mcg PO QWEEK Qty: 12 3RF diclofenac sodium 1 % gel 2 g topical ONCE Qty: 100 0RF Rx Instructions: apply to single elbow, wrist or hand; for hand includes palm/fingers/back of hand acetaminophen 500 mg tablet 1,000 mg PO Q8-10H MDD 6 tablets PRN (Reason: foot pain) Qty: 80 1RF Rx Instructions: Take (2) in AM (ok w/o food) and late afternoon (may take @ night occasionally) ibuprofen 600 mg tablet 600 mg PO Q6H MDD 2400mg (4 tabs) PRN (Reason: inflammation & foot pain) Qty: 80 1RF Rx Instructions: Take with substantial food (Tsp of peanut butter or cheese) gabapentin 300 mg capsule 300 mg PO QHS Qty: 20 0RF Rx Instructions: Trial for foot pain/neuropathy, overnight venlafaxine 150 mg tablet extended release 24hr 150 mg PO QAM MDD 225 mg Qty: 28 5RF venlafaxine 75 mg capsule,extended release 24hr 75 mg PO QAM MDD 225 mg Qty: 28 5RF Rx Instructions: 01/12/24 part of a dose increase to 225 mg/day calcium carbonate 200 mg calcium (500 mg) tablet,chewable 200 mg PO PRN Mounjaro 2.5 mg/0.5 mL pen injector 5 mg subcut QWEEK docusate sodium 100 mg capsule 100 mg PO BID Qty: 60 1RF amlodipine 2.5 mg tablet 2.5 mg PO DAILY Qty: 30 6RF Smooth Antacid 300 mg (750 mg) tablet,chewable 300 mg PO QID PRN (Reason: dyspepsia) Qty: 120 6RF polyethylene glycol 3350 [Miralax] 17 gram/dose powder 17 g PO DAILY Qty: 238 0RF Rx Instructions: Try 1/2 dose with 2nd glass of water, then other 1/2 in 2 hours with another glass of water rosuvastatin 5 mg tablet 5 mg PO DAILY Qty: 30 6RF doxepin 6 mg tablet 6 mg PO QHS PRN (Reason: sleep) Qty: 30 6RF Rx Instructions: within 30min of bedtime and not within 3 hours of a meal bupropion HCl [Wellbutrin XL] 300 mg tablet extended release 24 hr 300 mg PO QAM Qty: 30 6RF baclofen 20 mg tablet 20 mg PO TID PRN (Reason: muscle spasm) Qty: 60 0RF Humulin R U-500 (Conc) Kwikpen 500 unit/mL (3 mL) insulin pen See Rx Instructions subcut BID Patient Comments: didn't take last night or today Rx Instructions: 70 units subcutaneously twice a day; levothyroxine 175 mcg Tablet 175 mcg PO 0600 Qty: 90 0RF HPI General Date/Time Provider Initiated Documentation: 02/12/24 10:51. HPI Narrative: 38-year-old female history of diabetes presents with shortness of breath. Denies chest pain nausea vomiting cough fevers chills or systemic signs of illness. Related Data Home Medications ?Medication ?Instructions ?Recorded ?Confirmed calcium carbonate 200 mg PO PRN 05/05/23 02/12/24 cetirizine 10 mg tablet (Zyrtec) 10 mg PO DAILY 05/05/23 02/12/24 cholecalciferol (vitamin D3) 1,250 1,250 mcg PO QWEEK #12 caps 09/10/23 02/12/24 mcg (50,000 unit) capsule megestrol 40 mg tablet 40 mg PO DAILY #30 tabs 12/05/23 02/12/24 tirzepatide 2.5 mg/0.5 mL 5 mg subcut QWEEK 12/08/23 02/12/24 subcutaneous pen injector (Ha) docusate sodium 100 mg capsule 100 mg PO BID #60 caps 12/15/23 02/12/24 amlodipine 2.5 mg tablet 2.5 mg PO DAILY #30 tabs 12/22/23 02/12/24 insulin regular hum U-500 conc 500 See Rx Instructions subcut BID 12/30/23 02/12/24 unit/mL(3 mL) subcut pen (Humulin R U-500 (Conc) Insulin Kwikpen) levothyroxine 175 mcg tablet 175 mcg PO 0600 #90 tabs 01/04/24 02/12/24 venlafaxine 150 mg tablet,extended 150 mg PO QAM #28 tabs 01/12/24 02/12/24 release 24 hr venlafaxine 75 mg capsule,extended 75 mg PO QAM #28 caps 01/12/24 02/12/24 release 24 hr calcium carbonate (Smooth Antacid) 300 mg PO QID PRN dyspepsia #120 01/14/24 02/12/24 tabs acetaminophen 500 mg tablet 1,000 mg (2 x 500 mg) PO Q8-10H 01/16/24 02/12/24 PRN foot pain #80 tabs gabapentin 300 mg capsule 300 mg PO QHS neuropathy #20 caps 01/16/24 02/12/24 ibuprofen 600 mg tablet 600 mg PO Q6H PRN inflammation & 01/16/24 02/12/24 foot pain #80 tabs polyethylene glycol 3350 17 17 g PO DAILY #238 grams 01/16/24 02/12/24 gram/dose oral powder (Miralax) baclofen 20 mg tablet 20 mg PO TID PRN muscle spasm #60 02/02/24 02/12/24 tabs bupropion HCl 300 mg 24 hr tablet, 300 mg PO QAM #30 tabs 02/02/24 02/12/24 extended release (Wellbutrin XL) doxepin 6 mg tablet 6 mg PO QHS PRN sleep #30 tabs 02/02/24 02/12/24 rosuvastatin 5 mg tablet 5 mg PO DAILY #30 tabs 02/02/24 02/12/24 diclofenac sodium 1 % topical gel 2 g topical ONCE #100 grams 02/04/24 02/12/24 Previous Rx's ?Medication ?Instructions ?Recorded cholecalciferol (vitamin D3) 1,250 1,250 mcg PO QWEEK #12 caps 09/10/23 mcg (50,000 unit) capsule megestrol 40 mg tablet 40 mg PO DAILY #30 tabs 12/05/23 docusate sodium 100 mg capsule 100 mg PO BID #60 caps 12/15/23 amlodipine 2.5 mg tablet 2.5 mg PO DAILY #30 tabs 12/22/23 levothyroxine 175 mcg tablet 175 mcg PO 0600 #90 tabs 01/04/24 venlafaxine 150 mg tablet,extended 150 mg PO QAM #28 tabs 01/12/24 release 24 hr venlafaxine 75 mg capsule,extended 75 mg PO QAM #28 caps 01/12/24 release 24 hr calcium carbonate (Smooth Antacid) 300 mg PO QID PRN dyspepsia #120 01/14/24 tabs acetaminophen 500 mg tablet 1,000 mg (2 x 500 mg) PO Q8-10H 01/16/24 PRN foot pain #80 tabs gabapentin 300 mg capsule 300 mg PO QHS neuropathy #20 caps 01/16/24 ibuprofen 600 mg tablet 600 mg PO Q6H PRN inflammation & 01/16/24 foot pain #80 tabs polyethylene glycol 3350 17 17 g PO DAILY #238 grams 01/16/24 gram/dose oral powder (Miralax) baclofen 20 mg tablet 20 mg PO TID PRN muscle spasm #60 02/02/24 tabs bupropion HCl 300 mg 24 hr tablet, 300 mg PO QAM #30 tabs 02/02/24 extended release (Wellbutrin XL) doxepin 6 mg tablet 6 mg PO QHS PRN sleep #30 tabs 02/02/24 rosuvastatin 5 mg tablet 5 mg PO DAILY #30 tabs 02/02/24 diclofenac sodium 1 % topical gel 2 g topical ONCE #100 grams 02/04/24 Allergies Allergy/AdvReac Type Severity Reaction Status Date / Time lisinopril Allergy Mild Other (See Verified 02/04/24 13:30 Comment) metformin Allergy Unknown unknown Verified 02/04/24 13:30 General Stated Complaint: Chest Pain SAHARA: 2 Exam Narrative Exam Narrative: Resting comfortably no acute distress alert oriented Slight drying of oromucosa Lungs clear bilaterally no wheezes rales or rhonchi Normal heart sounds no murmurs rubs or gallops, moderately tachycardic Abdomen soft nontender nondistended Warm well-perfused extremities moving all extremities, no signs of trauma Course Vital Signs Vital signs: Vital Signs Respiratory Rate 19 02/12/24 10:22 Pulse Oximetry 94 02/12/24 10:22 Temperature 36.2 C L 02/12/24 10:45 Temperature Source Temporal Artery Scan 02/12/24 10:37 Pulse 117 H 02/12/24 10:45 Pulse 118 H 02/12/24 10:45 Respiratory Rate 19 02/12/24 10:45 Respiratory Effort Short of Breath 02/12/24 10:45 Respiratory Depth Normal 02/12/24 10:45 Respiratory Pattern Normal 02/12/24 10:45 Blood Pressure 129/71 02/12/24 10:45 Blood Pressure Mean 82 02/12/24 10:45 Blood Pressure Position Sitting 02/12/24 10:37 Pulse Oximetry 98 02/12/24 10:45 Oxygen Delivery Method Room Air 02/12/24 10:37 Oxygen Flow Rate 0 02/12/24 10:37 Pain Level 6 02/12/24 10:45 Comment foot/chest 02/12/24 10:37 Medical Decision Making 38-year-old female history of diabetes presents with shortness of breath, no chest pain no nausea no vomiting no fevers no chills afebrile nontoxic moderately tachycardic on arrival, normotensive, no tachypnea no hypoxia no peripheral edema. Sinus tachycardia on EKG. Speaking full sentences no supplemental oxygen required no peripheral edema. Consider dehydration versus likely derangement versus DKA versus infectious etiology such as viral illness versus pneumonia versus UTI, no neurologic symptomatology no external signs of trauma no signs of rash. Will obtain basic labs VBG urinalysis chest x-ray close reassessment 12: 52 evidence of saddle PE with heart strain. Heparin started. Patient amenable to transfer if needed. Contacting cardiovascular team/PE team at [facility] for transfer. 13: 37 patient was comfortably remains hemodynamically stable. Heparin initiated. Discussed case with Dr. Grove of cardiology team, patient has been accepted to stepdown unit at [facility], accepting physician Dr. Jo. Awaiting callback with bed availability to arrange transport Quality:SDOH Health Related Social Needs: Health related social needs food insecurity, transpo insecurity Health related social needs details is connected with RCT. Has to carefully schedule appointments as to not go over her allotted number of rides per month. Often can't afford healthy food. PFSH All Active Problems (Updated 02/12/24 @ 13:38 by Javier Verdin MD) Saddle pulmonary embolus (Acute) Pulmonary embolism (Chronic) Charcot joint of right foot (Acute) per Podiatry, with strict [id number] instructions (.. consider total contact casting if she is unable to stay off of the foot ) Lisfranc dislocation (Acute) Cellulitis of foot, right (Acute) Bilateral shoulder pain (Acute) Left rotator cuff tear (Acute) Patient desires (Acute) Bilateral carpal tunnel syndrome (Acute) Vertigo (Acute) Anemia (Chronic) Improved, 10.1 01/04/24 [vs 6.4 in Oct 2023], s/p hospitalization for foot injury/infection.. Depression (Chronic) Panic disorder (Acute) Sore throat (Acute) Type 2 diabetes mellitus with peripheral neuropathy (Chronic) Status post thyroidectomy (Acute) Social phobia, unspecified (Acute) Skin ulcer of left great toe, limited to breakdown of skin (Acute) Skin ulcer of left great toe with fat layer exposed (Acute) Sciatica of right side (Acute) PCOS (polycystic ovarian syndrome) (Acute) Open wound of left great toe (Acute) Chronic ulcer of right foot (Acute) Neuropathy (Acute) Metabolic syndrome (Acute) Low back pain with radiation (Acute) Lightheadedness (Acute) Intertrigo (Acute) Impingement syndrome of right shoulder (Acute) Hypo-osmolality and hyponatremia (Acute) Hyperlipidemia (Acute) Homelessness (Acute) Hemangioma (Acute) GERD without esophagitis (Acute) Essential (primary) hypertension (Acute) Dysphagia (Acute) Diarrhea (Acute) Developmental disorder of scholastic skills, unspecified (Acute) Anxiety and depression (Chronic) Medical History Discharge planning issues History of endometrial biopsy (11/19/23) Dr Muñoz Follicular thyroid cancer (~2021) Menorrhagia 2U PRBC October 2023 Endo bx planned VTE (venous thromboembolism) 10/07/23 [facility] Otitis media Surgical History H/O thyroidectomy (~2021) Social History Smoking/Tobacco Use Status: Never Second Hand Exposure: No Smoking risk assessment performed?: Yes Alcohol Intake: never Drug use: Never Substance use type: does not use Adopted: No Caregiver/Support person: No Foster care: No Household members: none Housing: apartment Number of Children: 0 number of grandchildren: 0 Communication Needs: Corrective Lenses and Cannot Read Education Level: high school Details: special diploma from Do you need help understanding health information?: Always current occupation: [employer] Pets and animals: Yes (2) Pets and animals: cat(s) Sexually active: Yes Do you think of yourself as: straight/heterosexual Current gender identity: female What is your relationship status?: never How often do you talk on the phone with friends or family?: once per week How often do you get together with friends or relatives?: never Do you belong to any clubs or organized social groups?: no Panel score (0-1 are the most socially isolated patients): 0 What type of physical activity do you participate in: regular exercise Duration: < 15 minutes/day Frequency: 1-2 times per week Seatbelt use: sometimes Helmet use: No Drive intox or ride w/intox medical driver: No Do you feel safe at home: Yes Do you feel safe in your relationship?: Yes Additional Social history: Has apartment in [facility] in [place] [facility]. Male partner in [place]. On SSDI due to medical and learning disability Female Reproductive History Menstrual control method: none History History 0 Para Hx # Term Pregnancies Multiple births Hx # Pregnancies Ectopic pregnancies AB induced Hx Number of Living Children AB spontaneous
[2024-02-12 11:09] LABS: Abs Immature Grans 0.05 10^3/uL (0.0-0.06); Absolute Basophil Count 0.02 10^3/uL (0.0-0.2); Absolute Eosinophil Count 0.03 10^3/uL (0.0-0.7); Absolute Lymphocyte Count 2.45 10^3/uL (1.2-3.4); Absolute Monocyte Count 0.58 10^3/uL (0.1-0.8); Absolute Neutrophil Count 6.68 10^3/uL (1.2-6.7); Basophils % 0.2 %; Eosinophils % 0.3 %; HCT 33.2 % (36.0-46.0); HGB 10.4 g/dL (11.2-15.7); Immature Grans % 0.5 %; MCH 22.5 pg (27.0-33.0); MCHC 31.3 % (32.0-36.0); MCV 72 fL (80-95); MPV 8.9 fL (8.0-11.0); Monocytes % 5.9 %; Neutrophils % 68.1 %; Platelet Count 256 10^3/uL (130-400); RBC 4.62 10^6/uL (3.93-5.22); RDW 17.2 % (11.7-14.6); RDW-SD 44.1 fL; WBC 9.81 10^3/uL (4.4-10.8)
[2024-02-12 11:11] LABS: BE (Venous) -3 mmol/L (-2-3); HCO3 (Venous) 22 mmol/L (23-28); O2 Sat (Venous) 59 %; TCO2 (Venous) 21 mmol/L (24-29); pCO2 (Venous) 36 mmHg (41-51); pO2 (Venous) 32 mmHg
[2024-02-12 11:24] LABS: INR 1.1 (0.9-1.1); PTT Activated 25.3 sec (23.6-32.8); Prothrombin Time 10.7 sec (9.1-11.1)
[2024-02-12 11:29] LABS: ALT 26 U/L (14-59); AST 20 U/L (15-37); Alkaline Phosphatase 68 U/L (46-116); Anion Gap 10.1 mmol/L (3-11); BUN 27 mg/dL (7-18); Bilirubin, Total 0.23 mg/dL (0.2-1.0); CO2 23.9 mmol/L (21.0-32.0); CREATININE 1.1 mg/dL (0.55-1.02); Calcium 9.6 mg/dL (8.5-10.1); Chloride 101 mmol/L (98-107); Estimated GFR 65.14 (mL/min/1.73m2); Glucose 266 mg/dL (74-106); Magnesium 1.5 mg/dL (1.8-2.4); NT-proBNP 1863 pg/mL (<300); Potassium 3.9 mmol/L (3.5-5.1); Sodium 135 mmol/L (136-145); TSH (W/Ref FT4) 0.06 uIU/mL (0.36-3.74); Total Protein 8.2 g/dL (6.4-8.2)
[2024-02-12 11:31] LABS: Troponin I 772 ng/L (<or=51)
[2024-02-12 11:37] LABS: D-Dimer > 7500 ng/mlFEU (<500)
[2024-02-12 11:44] LABS: Diff Comment RBC Morph Reviewed; Microcytosis 1+
[2024-02-12 11:45] LABS: Hypochromasia 1+; Poikilocytes 1+; Polychromasia Present
[2024-02-12] MEDS: Normal Saline - Diluent 50 ML VIAL IJ (11:55)
[2024-02-12] MEDS: Omnipaque 350 MG/ML 100 ML BTL IJ (11:56)
--- NOTE | 2024-02-12 12:02 | DI.CT_ITS ---
Exam(s) CT CHEST PE CTA EXAM: CT CHEST PE CTA CLINICAL HISTORY: sob, tachy, hx dvt. TECHNIQUE: Imaging Protocol: Axial CT angiography was performed with multi-slice acquisition and mu lti-planar and/or 3D reconstructions. CONTRAST MATERIAL: Intravenous: Omnipaque 350 contrast volume:100 mL COMPARISON: No exams were available for comparison FINDINGS: Tracheobronchial tree: Patent where visualized. No bronchiectasis. Pulmonary parenchyma: No consolidation or dominant measurable mass. No architectural distortion. Pulmonary Arteries: There is a saddle embolus present. Extensive filling defects are seen bilaterall y consistent with pulmonary emboli. The RV to LV ratio is greater than 1 consistent with right heart strain. Mediastinum and Karuna: No dominant adenopathy or fluid collection. The esophagus is unremarkable. Visualized thyroid gland: The patient appears to be status post thyroidectomy. Surgical clips are se en in the region of the thyroid bed. Pleura: No effusion or pneumothorax. Heart: The RV to LV ratio is greater than 1 consistent with right heart strain. No coronary artery c alcifications are seen. No pericardial effusion. Aorta: Thoracic aorta non-dilated. No evidence of dissection. Upper abdomen: Cholelithiasis. No biliary ductal dilatation. Soft tissues: Unremarkable. Bones: Within normal limits for the patient's age. IMPRESSION: 1. Extensive pulmonary embolic disease involving all lobes of the lung. There is a saddle embolus pr esent. 2. Findings of right heart strain with an RV to LV ratio greater than 1. 3. No pulmonary infiltrates/infarcts. 4. Findings were discussed with Dr. Verdin at 12:50 p.m. on 02/12/2024. RADIATION DOSE DELIVERED: 163.11mGy.cm Total DLP DATA REPOSITORY: All CT scans at this facility are submitted to the National Radiology Data Registry (NRDR) Dose Index Registry (DIR) with the [employer] (A[employer]). RADIATION OPTIMIZATION: All CT scans at this facility use at least one of these dose optimization te chniques: automated exposure control; mA and/or kV adjustment per patient size (includes targeted exa ms where dose is matched to clinical indication); or iterative reconstruction.
[2024-02-12 12:04] LABS: Troponin I 617 ng/L (<or=51)
[2024-02-12 12:06] LABS: HCG Quant, Pregnancy 1 mIU/mL (1-3)
[2024-02-12 12:08] LABS: FREE T4 1.43 ng/dL (0.76-1.46)
[2024-02-12 12:41] LABS: COVID-19 PCR Negative (Negative); Influenza A PCR Negative (Negative); Influenza B PCR Negative (Negative); RSV PCR Negative (Negative)
[2024-02-12] MEDS: Normal Saline 1,000 ML 1000 ML IV (12:45)
[2024-02-12 12:48] LABS: Source Nasopharynx
[2024-02-12] MEDS: Heparin in 0.45% NaCl 25,000 UNIT/250 ML BAG 18 UNIT IV (12:54)
== END 2024-02-12 15:24 | disposition short-term general hospital (02) ==
PROVIDERS: Emergency Provider Emergency Medicine; PCP Nurse Practitioner
DX: I26.92 Saddle embolus of pulmonary artery without acute cor pulmonale (principal); R00.1 Bradycardia, unspecified; E11.40 Type 2 diabetes mellitus with diabetic neuropathy, unspecified; Z79.4 Long term (current) use of insulin
CPT/HCPCS: 36415; 71275; 80053; 82805; 87637; 93005; 96360; 96361; 99285; 83735; 83880; 84439; 84443; 84484; 84702; 85025; 85379; 85610; 85730; 93010; J1644; J3490

== ENCOUNTER → 2024-02-18 12:48 | Outpatient (BNVA) | payer MEDICARE, MEDICAID, SELFPAY | PROVIDERS: PCP Nurse Practitioner; Referring Provider Nurse Practitioner; Visit Provider Student in an Organized Health Care Education/Training Program | DX: M75.81 Other shoulder lesions, right shoulder (principal); M75.82 Other shoulder lesions, left shoulder | CPT/HCPCS: 99213 ==

== ENCOUNTER 2024-03-09 01:06 | Outpatient (CLI) | payer MEDICARE, MEDICAID, SELFPAY ==
--- NOTE | 2024-03-09 07:15 | DI.RAD_ITS ---
Exam(s) XR FOOT RT COMPLETE EXAM: XR FOOT RT COMPLETE CLINICAL HISTORY: Charcot JOINT RT FOOT, M14.671,S93.326A,LISFRANC DISLOCATION. TECHNIQUE: 2D digital imaging was performed of the right foot. Three images were obtained. AP, obl ique and lateral views were obtained. COMPARISON: CR XR FOOT RT COMPLETE from 02/04/2024 FINDINGS: BONES: No new fracture or dislocation is present. No bony destructive lesion is seen. JOINTS: There has been no change in alignment of the tarsometatarsal joints since the prior examinati on. There is no change in appearance of the foot. SOFT TISSUE: There is soft tissue swelling of the foot. Vascular calcifications are present. IMPRESSION: Stable alignment of the Charcot foot. DATA REPOSITORY: RADIATION DOSE DELIVERED:
== END 2024-03-09 01:26 ==
LOC: DI 01:06
PROVIDERS: PCP Nurse Practitioner; Visit Provider Podiatrist
DX: M14.671 Charcot's joint, right ankle and foot (principal)
CPT/HCPCS: 73630

== ENCOUNTER 2024-03-31 00:55 | Outpatient (CLI) | payer MEDICARE, MEDICAID, SELFPAY ==
--- NOTE | 2024-03-31 14:47 | DI.RAD_ITS ---
Exam(s) XR FOOT RT COMPLETE EXAM: XR FOOT RT COMPLETE CLINICAL HISTORY: EvaL PROGRESS,charcot joint,m14.671. TECHNIQUE: 2D digital imaging was performed of the right foot. Three images were obtained. AP, obl ique and lateral views were obtained. COMPARISON: CR XR FOOT RT COMPLETE from 03/09/2024 FINDINGS: BONES: No acute fracture is present. No bony destructive lesion is seen. JOINTS: There has been no change in alignment of the deformity of the tarsal bones since the prior ex amination dated 03/09/2024. There is chronic dislocation of the tarsometatarsal joints. There is st able fragmentation of the tarsal bones. SOFT TISSUE: Vascular calcifications are present. IMPRESSION: Stable alignment of the Charcot foot. DATA REPOSITORY: RADIATION DOSE DELIVERED:
== END 2024-03-31 01:15 ==
LOC: DI 00:56
PROVIDERS: PCP Nurse Practitioner; Visit Provider Podiatrist
DX: M14.671 Charcot's joint, right ankle and foot (principal)
CPT/HCPCS: 11055; 73630

== ENCOUNTER 2024-04-06 01:59 | Outpatient (CLI) | payer MEDICARE, MEDICAID, SELFPAY ==
--- NOTE | 2024-04-06 07:00 | DI.MRI_ITS ---
Exam(s) MR LUMBAR SPINE WO EXAM: MR LUMBAR SPINE WO CLINICAL HISTORY: Low back pain to lower extremities,LUMBAR SPONDYLOSIS,RADICULITIS,M54.16,. TECHNIQUE: Multiplanar multisequence MRI of the Lumbar spine was performed. COMPARISON: No exams were available for comparison FINDINGS: Five lumbar vertebrae are presumed. Conus medullaris is at normal level. There is no evidence of conus mass nor subjacent clumping of in trathecal nerve roots to suggest arachnoiditis. The distal thecal sac is at upper S1 level..There is no evidence of Tarlov intrasacral cysts nor other significant findings within the sacral canal Bones:There are no fractures nor ominous osseous lesions in the lumbar vertebral bodies and visualize d sacrum. However, there is a degenerative scoliosis convex left having epicenter at L2-3 level wher e there is asymmetric right-sided disc space narrowing and there are advanced Modic type 2 sub endpla te fatty marrow changes in both L2 and L3 vertebral bodies. With respect to the individual levels... T12-L1: Unremarkable L1-2: Normal disc height and signal. No disc herniation nor central canal stenosis.No foraminal steno sis L2-3: There is significant disc space narrowing at this level which is asymmetric, being more promine nt on the right side. There are no prominent osteophytes. Posteriorly there is no disc herniation o r central canal stenosis. There is no foraminal stenosis on the left side nor on the right side at t his level. There are minimal degenerative changes in the facet joints. L3-4: Normal disc height. No disc herniation or central canal stenosis.No foraminal stenosis.Mild de generative changes in the facet joints. L4-5: Preserved disc height. There is central subligamentous annular bulging which contacts the ante rior thecal sac. There is no dominant disc herniation. Central canal dimensions are lower normal at this level. There is no significant foraminal stenosis on either side and minimal degenerative rene ges in the facet joints. L5-S1: This level exhibits normal disc height and signal. There is mild symmetrical annular bulging without a dominant disc herniation. Central canal dimensions are within normal limits. There is no significant foraminal stenosis on either side at this level. Facet joints unremarkable. Soft tissues: paraspinal soft tissues appear unremarkable. IMPRESSION: 1. The main findings here are at L2-3 level where there is moderate disc space narrowing, slightly mo re severe on the right side of the disc space and there is also prominent Modic type 2 sub endplate f atty marrow changes in the lower half of the L2 and most of the L3 vertebral body. No prominent oste ophytes at this level. There is no significant disc herniation at this level and no evidence of cent ral canal stenosis nor foraminal stenosis at this level. 2. Central subligamentous annular bulging noted at L4-5 level. Canal dimensions are lower normal at this level. 3. Some annular bulging also noted L5-S1 but no prominent disc herniation or central canal stenosis a t this level. DATA REPOSITORY:
== END 2024-04-06 02:19 ==
LOC: DI 02:00
PROVIDERS: PCP Nurse Practitioner; Visit Provider Anesthesiology Pain Medicine
DX: M47.816 Spondylosis without myelopathy or radiculopathy, lumbar region (principal)
CPT/HCPCS: 72148

== ENCOUNTER 2024-04-21 01:42 | Outpatient (CLI) | payer MEDICARE, SELFPAY ==
--- NOTE | 2024-04-21 13:56 | DI.RAD_ITS ---
Exam(s) XR FOOT RT COMPLETE EXAM: XR FOOT RT COMPLETE CLINICAL HISTORY: Pain in right foot,charcot joint,m14.671. TECHNIQUE: 2D digital imaging was performed of the right foot. Three images were obtained. AP, obl ique and lateral views were obtained. COMPARISON: CR XR FOOT RT COMPLETE from 03/31/2024 FINDINGS: BONES: No acute fracture is present. No bony destructive lesion is seen. JOINTS: No dislocation present. There has been no change in the malalignment of the tarsal bones of t he right foot since 03/31/2024. Findings are most suggestive of a Charcot foot. SOFT TISSUE: Vascular calcifications are present. IMPRESSION: Stable alignment of the right foot consistent with a Charcot foot. DATA REPOSITORY: RADIATION DOSE DELIVERED:
== END 2024-04-21 02:02 ==
PROVIDERS: PCP Nurse Practitioner; Visit Provider Podiatrist
DX: M14.671 Charcot's joint, right ankle and foot (principal)
CPT/HCPCS: 73630

== ENCOUNTER 2024-05-03 01:17 | Outpatient (CLI) | payer MEDICARE, MEDICAID, SELFPAY ==
--- NOTE | 2024-05-03 | DI.US_ITS ---
Exam(s) MG MAMMO DIAGNOSTIC UNI US BREAST RT LIMITED EXAM: MG MAMMO DIAGNOSTIC UNI and U/S breast RT limited CLINICAL HISTORY: 6 mos f/u,f/u abnl rt breast, r92.8,rt breast nodule. TECHNIQUE: Craniocaudal and mediolateral oblique Full Field Digital Mammography views of the right b reast with Computer Aided Diagnosis followed by Tomosynthesis and right breast ultrasound. COMPARISON: Comparison is made with prior examinations. FINDINGS: Mammography/Tomosynthesis: Masses/Architectural Distortion: There has been no change in appearance of the well-circumscribed nod ule in the right breast. No new nodules are seen. No areas of architectural distortion are present. Microcalcifictions: No suspicious pleomorphic-type are seen. Skin Thickening/Nipple Retraction: None. Limited right breast US: Echotexture: Normal appearance of the glandular tissue. Shadowing: No suspicious foci. Cyst: There is a stable 4 mm cyst at the 1 o'clock position of the right breast 1 cm from the nipple. Solid lesions: None seen. Ductal dilation: None. IMPRESSION: 1. No evidence of malignancy is noted. 2. Unless there is more urgent need, follow-up screening mammography is recommended, as per [employer] guidelines. 3. The findings were discussed with the patient on the date of the examination. BI-RADS Category 2 - Benign Findings Breast Density - Category B - Scattered areas of fibroglandular density Breast density Category C or D implies that the patient has dense breast tissue. Dense breast tissue can make it harder to find cancer on a mammogram. Dense breast tissue is also associated with an incr eased risk of breast cancer. This information about the result of the mammogram report was provided to the patient to raise their awareness. Use this report when you speak with the patient about their risks for breast cancer, which includes their family history. At that time, you may recommend additional screening tests (Ultrasoun d or MRI) as these tests may add significant information. A negative radiographic report should not delay biopsy if a dominant or clinically suspicious mass is present. Up to ten percent of cancers are not identified on mammography. A negative report may reinforce clinical impression. Adenosis and dense breasts may obscure an underlying neoplasm. False positive reports average 6 to 10%. Patient will receive a letter notifying them of these results.
== END 2024-05-03 01:37 ==
PROVIDERS: PCP Nurse Practitioner; Visit Provider Nurse Practitioner
DX: R92.8 Other abnormal and inconclusive findings on diagnostic imaging of breast (principal); Z12.31 Encounter for screening mammogram for malignant neoplasm of breast
CPT/HCPCS: 76642; 77061; 77065; G0279

== ENCOUNTER 2024-05-10 10:15 | Outpatient (CLI) | payer MEDICARE, MEDICAID, SELFPAY ==
[2024-05-10 10:25] VITALS: BP 132/88; PULSE 108; RESP 20; TEMP 36.7; O2SAT 96
--- NOTE | 2024-05-10 10:34 | PDOC.PAIN_ITS ---
Date of service: 05/10/24 Time of Service: 11:02 Pain Managment Procedure Note Procedure Note Procedure Note: Lumbar Medial Branch Block ? Location: Right Medial Branches ? Levels: L3,4,5? (L4-5, L5-S1 FACET) ? Pre-procedure Diagnosis: M47.817 Spondylosis without myelopathy or radiculopathy, lumbosacral region M47.816 Spondylosis without myelopathy or radiculopathy, lumbar region ? Post-procedure Diagnosis:? The same as above ? Sedation: NONE? Estimated blood loss:? less than 2 cc ? Surgeon:? Charli Tillman MD COMMENT: PRE PROCEDURE PAIN SCORE: 8/10 ? Procedure Detail:? The procedure and potential risks were explained to the patient and informed written consent was obtained. The patient was escorted to the procedure room and placed in the prone position. Pillows were utilized for proper positioning and comfort.? Time out was performed in procedure room with nursing staff confirming the patient's identity, procedure to be performed, allergies, and any blood thinning or anti-platelet medications. The patient's lower back was prepped with chlorhexidine and draped in a sterile fashion. Sterile technique was maintained throughout the procedure.? Sterile gloves were used, a face mask was worn, and new single dose vials of all medications were used with the top being swabbed with alcohol and given time to dry prior to withdrawal of medication.? A right-sided oblique fluoroscopic view was obtaine d, with visualization of the: ?RIGHT L3,4 and DORSAL RAMUS L5 AT SACRAL ALA ? junction of the transverse process and superior articular process. Lidocaine 1% was used to anesthetize the skin. A 22-gauge Quincke needle was advanced along the superior margin of the transverse process and lateral to the articular process.? It was directed inferiorly and medially so that the tip struck the junction of the base of the transverse process and the superior articular process. The needle was then walked over the superior aspect of the transverse process and advanced slightly along the course of the L3,4,5 medial branch nerves. Proper placement was verified in A/P, oblique and lateral views under fluoroscopy. At this location, following negative aspiration, 0.5cc 0.5% bupivacaine was injected.? The patient tolerated the procedure well and was transported to the recovery area for observation and discharge instructions. Permanent images saved and recorded. Follow-up:? The patient will return in 2 weeks for confirmatory LMBBs if they? meet the criteria from today's procedure lasting for at least 2 hours.? COMMENT:Pain went from 8/10 to 3/10. Before the patient left patient had greater than 60% pain relief.
[2024-05-10 10:49] VITALS: O2SAT 98
[2024-05-10 10:50] VITALS: O2SAT 100
--- NOTE | 2024-05-10 11:00 | DI.RAD_ITS ---
Exam(s) XR PAIN CLINIC LUMBAR SP 2V EXAM: XR PAIN CLINIC LUMBAR SP 2V CLINICAL HISTORY: Dx: Lumbar Spondylosis. TECHNIQUE: Fluoroscopy was provided for the referring physician for guidance with performing pain cl inic injection procedure. COMPARISON: No exams were available for comparison FINDINGS: Please see procedure note for details. Fluoro time: 22.4 seconds RADIATION DOSE DELIVERED: Ka,r=10.5 mGy
[2024-05-10] MEDS: Nerve Block Tray 1 EACH MC (11:08)
[2024-05-10] MEDS: Bupivacaine 0.5% Pres-Free 10 ML VIAL IJ (11:08)
== END 2024-05-10 10:16 | disposition home or self-care (01) ==
LOC: PC 10:18
PROVIDERS: PCP Nurse Practitioner; Visit Provider Anesthesiology Pain Medicine
DX: M54.50 Low back pain, unspecified (principal); M47.817 Spondylosis without myelopathy or radiculopathy, lumbosacral region; M47.816 Spondylosis without myelopathy or radiculopathy, lumbar region
CPT/HCPCS: 00123; 64493; 64494; 72100; J0665

== ENCOUNTER 2024-06-02 02:17 | Outpatient (CLI) | payer MEDICARE, MEDICAID, SELFPAY ==
--- NOTE | 2024-06-02 07:00 | DI.RAD_ITS ---
Exam(s) XR FOOT RT COMPLETE EXAM: XR FOOT RT COMPLETE CLINICAL HISTORY: ? changes charcot joint, m14.671. TECHNIQUE: 2D digital imaging was performed of the right foot. Three images were obtained. AP, obl ique and lateral views were obtained. COMPARISON: CR XR FOOT RT COMPLETE from 04/21/2024 FINDINGS: BONES: No acute fracture is present. No bony destructive lesion is seen. Hammertoe deformities of the 2nd through 5th toes are noted. There is a tiny enthesophyte at the posterior calcaneus. JOINTS: There again seen findings of a Charcot foot with fragmentation of the tarsal bones and of the tarsal joints including the tarsal metatarsal joints. There is no significant change in alignment o f the foot compared to the prior examination dated 04/21/2024. SOFT TISSUE: Vascular calcifications are present. No soft tissue gas is appreciated. IMPRESSION: Stable alignment of the right foot consistent with the Charcot foot. DATA REPOSITORY: RADIATION DOSE DELIVERED:
== END 2024-06-02 02:37 ==
LOC: DI 02:17
PROVIDERS: PCP Nurse Practitioner; Visit Provider Podiatrist
DX: M14.671 Charcot's joint, right ankle and foot (principal)
CPT/HCPCS: 73630

== ENCOUNTER 2024-06-30 02:21 | Outpatient (CLI) | payer MEDICARE, MEDICAID, SELFPAY ==
--- NOTE | 2024-06-30 13:29 | DI.RAD_ITS ---
Exam(s) XR FOOT RT COMPLETE EXAM: XR FOOT RT COMPLETE CLINICAL HISTORY: ? ANY CHANGES,CHARCOT JOINT RT FOOT, M14.671. TECHNIQUE: 2D digital imaging was performed. Three views. COMPARISON: CR XR FOOT RT COMPLETE from 04/21/2024 CR XR FOOT RT COMPLETE from 06/02/2024 FINDINGS: BONES: No acute fracture is present. No bony destructive lesion is seen. JOINTS: Compared to the prior exam, there appears to be worsening of the superior subluxation of the metatarsals, tarsal metatarsal joint. There is stable malalignment of the cuneiform so, cuboid and n avicular. Hammertoe deformities also noted. SOFT TISSUE: Normal. IMPRESSION: Charcot foot with question of increased subluxation at the tarsal metatarsal joint. DATA REPOSITORY: RADIATION DOSE DELIVERED:
== END 2024-06-30 02:41 ==
LOC: DI 02:21
PROVIDERS: PCP Nurse Practitioner; Visit Provider Podiatrist
DX: M14.671 Charcot's joint, right ankle and foot (principal)
CPT/HCPCS: 73630

== ENCOUNTER 2024-07-26 03:05 | Outpatient (CLI) | payer MEDICARE, MEDICAID, SELFPAY ==
--- NOTE | 2024-07-26 12:31 | DI.RAD_ITS ---
Exam(s) XR FOOT RT COMPLETE EXAM: XR FOOT RT COMPLETE CLINICAL HISTORY: ? worsening,charcot joint rt foot,m14.671. TECHNIQUE: 2D digital imaging was performed. COMPARISON: No exams were available for comparison FINDINGS: 3 views Again noted is disruption and fragmentation of the midfoot tarsal bones and midfoot articulations and midfoot collapse.. The medial cuneiform is again noted be subluxed medially, resulting in a ???bump ??? on the medial aspect of the midfoot. There are no new fractures evident. Vascular calcification s noted but no obvious skin ulcers and there is no radiographic evidence of osteomyelitis. There is no radiopaque foreign body. Findings are similar to prior images of 06/30/2024. Hammertoe deformiti es also again noted.. IMPRESSION: Findings are consistent with Charcot arthropathy of the midfoot. Findings appear unchanged radiograp hically from prior images of 06/30/2024. No radiographic evidence of osteomyelitis. DATA REPOSITORY: RADIATION DOSE DELIVERED:
== END 2024-07-26 03:25 ==
LOC: DI 03:06
PROVIDERS: PCP Nurse Practitioner; Visit Provider Podiatrist
DX: M14.671 Charcot's joint, right ankle and foot (principal)
CPT/HCPCS: 73630

== ENCOUNTER 2024-07-26 11:53 | Outpatient (CLI) | payer MEDICARE, MEDICAID, SELFPAY ==
[2024-07-26 12:16] LABS: CREATININE 1.3 mg/dL (0.55-1.02); Estimated GFR 52.98 (mL/min/1.73m2)
[2024-07-26 12:17] LABS: Hemoglobin A1C 6.3 % (<5.7)
== END 2024-07-26 11:54 | disposition home or self-care (01) ==
PROVIDERS: Internal Medicine Endocrinology, Diabetes & Metabolism; PCP Nurse Practitioner; Visit Provider Family Medicine
DX: R06.02 Shortness of breath (principal); E11.65 Type 2 diabetes mellitus with hyperglycemia; Z79.4 Long term (current) use of insulin
CPT/HCPCS: 36415; 73630; 82565; 83036

== ENCOUNTER 2024-08-03 00:32 | Outpatient (CLI) | payer MEDICARE, MEDICAID, SELFPAY ==
--- NOTE | 2024-08-03 | DI.CT_ITS ---
Exam(s) CT CHEST PE CTA EXAM: CT CHEST PE CTA CLINICAL HISTORY: SOB for about 3 weeks with talking,H/O PE,R06.02. TECHNIQUE: Imaging Protocol: Axial CT angiography was performed with multi-slice acquisition and mu lti-planar reconstructions as well as axial, coronal and sagittal MIP reconstructions. Computer aided detection (CAD) was utilized. CONTRAST MATERIAL: Intravenous: Omnipaque 350 Contrast volume:100 ml COMPARISON: CT CT CHEST PE CTA from 02/12/2024 FINDINGS: Pulmonary Arteries: No evidence of filling defect to suggest pulmonary emboli. Mediastinum and Karuna: No dominant adenopathy or fluid collection. Pulmonary parenchyma: No consolidation or dominant measurable mass. Pleura: No effusion or pneumothorax. Heart: The heart is not dilated. No coronary artery calcifications are seen. Aorta: Thoracic aorta non-dilated. No dissection. Upper abdomen: No acute findings. Bones: Unremarkable for age. Tubes, Catheters, and Lines: None Soft tissues: Unremarkable. IMPRESSION: No evidence of pulmonary embolism. RADIATION DOSE DELIVERED: 269.93mGy.cm Total DLP DATA REPOSITORY: All CT scans at this facility are submitted to the National Radiology Data Registry (NRDR) Dose Index Registry (DIR) with the [employer] [place] ([employer]). RADIATION OPTIMIZATION: All CT scans at this facility use at least one of these dose optimization te chniques: automated exposure control; mA and/or kV adjustment per patient size (includes targeted exa ms where dose is matched to clinical indication); or iterative reconstruction.
[2024-08-03] MEDS: Normal Saline - Diluent 50 ML VIAL IJ (14:51)
[2024-08-03] MEDS: Omnipaque 350 MG/ML 100 ML BTL IJ (14:52)
== END 2024-08-03 00:52 ==
LOC: DI 00:32
PROVIDERS: PCP Nurse Practitioner; Visit Provider Nurse Practitioner
DX: R06.02 Shortness of breath (principal)
CPT/HCPCS: 71275; J3490

== ENCOUNTER 2024-11-17 02:30 | Outpatient (CLI) | payer MEDICARE, MEDICAID, SELFPAY ==
--- NOTE | 2024-11-17 08:52 | DI.RAD_ITS ---
Exam(s) XR FOOT RT COMPLETE EXAM: XR FOOT RT COMPLETE CLINICAL HISTORY: ? 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 TECHNIQUE: 2D digital imaging was performed. COMPARISON: CR XR FOOT RT COMPLETE from 07/26/2024 FINDINGS: Again noted is disruption fragmentation of the midfoot tarsal bones and midfoot articulations and element of midfoot collapse is again seen. Appearance is that of Charcot-type foot. The medial cuneiform is again noted to be subluxed medially, this resulting in a ???bump??? on the medial aspect of the midfoot. Prominent navicular tuberosity again noted. Hammertoe deformities are again noted. IMPRESSION: Charcot arthropathy of the midfoot bones and articulations with minimal change from prior images of 06/30/2024 and 07/26/2024. DATA REPOSITORY: RADIATION DOSE DELIVERED:
== END 2024-11-17 02:50 ==
PROVIDERS: PCP Nurse Practitioner Family; Visit Provider Podiatrist
DX: M14.671 Charcot's joint, right ankle and foot (principal); E11.42 Type 2 diabetes mellitus with diabetic polyneuropathy; L97.521 Non-pressure chronic ulcer of other part of left foot limited to breakdown of skin; S93.324A Dislocation of tarsometatarsal joint of right foot, initial encounter; L84 Corns and callosities; G62.89 Other specified polyneuropathies; X58.XXXA Exposure to other specified factors, initial encounter; Z59.89 Other problems related to housing and economic circumstances
CPT/HCPCS: 97597; 99214; 73630

== ENCOUNTER → 2025-01-18 10:26 | Outpatient (BNVA) | payer MEDICARE, MEDICAID, SELFPAY | PROVIDERS: PCP Nurse Practitioner Family; Referring Provider Nurse Practitioner Family; Visit Provider Podiatrist | DX: L97.521 Non-pressure chronic ulcer of other part of left foot limited to breakdown of skin (principal); M14.671 Charcot's joint, right ankle and foot; E11.42 Type 2 diabetes mellitus with diabetic polyneuropathy; L84 Corns and callosities; L85.8 Other specified epidermal thickening | CPT/HCPCS: 97597 ==

== ENCOUNTER 2025-01-28 03:26 | Outpatient (CLI) | payer MEDICARE, MEDICAID, SELFPAY ==
[2025-01-28 11:24] LABS: Calculated LDL 203 mg/dL (<100); Cholesterol 280 mg/dL (<200); HDL Cholesterol 42 mg/dL (>or=50); TSH (W/Ref FT4) 0.06 uIU/mL (0.36-3.74); Triglyceride 178 mg/dL (<150)
== END 2025-01-28 03:27 | disposition home or self-care (01) ==
PROVIDERS: PCP Nurse Practitioner Family; Referring Provider Nurse Practitioner Family; Visit Provider Nurse Practitioner Family
DX: E11.9 Type 2 diabetes mellitus without complications (principal); Z00.00 Encounter for general adult medical examination without abnormal findings; E89.0 Postprocedural hypothyroidism
CPT/HCPCS: 36415; 80061; 84439; 84443

== ENCOUNTER → 2025-02-09 10:24 | Outpatient (BNVA) | payer MEDICARE, MEDICAID, SELFPAY | PROVIDERS: PCP Nurse Practitioner Family; Referring Provider Nurse Practitioner Family; Visit Provider Podiatrist | DX: L97.521 Non-pressure chronic ulcer of other part of left foot limited to breakdown of skin (principal); E11.42 Type 2 diabetes mellitus with diabetic polyneuropathy; E11.621 Type 2 diabetes mellitus with foot ulcer; M14.671 Charcot's joint, right ankle and foot; G62.9 Polyneuropathy, unspecified; L84 Corns and callosities; M79.671 Pain in right foot; M79.672 Pain in left foot; S93.324A Dislocation of tarsometatarsal joint of right foot, initial encounter; X58.XXXA Exposure to other specified factors, initial encounter | CPT/HCPCS: 11042; 17110 ==

== ENCOUNTER 2025-02-16 10:26 | Outpatient (CLI) | payer MEDICARE, MEDICAID, SELFPAY ==
--- NOTE | 2025-02-16 06:00 | DI.RAD_ITS ---
Exam(s) XR PAIN CLINIC LUMBAR SP 2V EXAM: XR PAIN CLINIC LUMBAR SP 2V CLINICAL HISTORY: Dx: Lumbar Spondylosis. TECHNIQUE: Fluoroscopy was provided for the referring physician for guidance with performing pain clinic injection procedure. COMPARISON: No exams were available for comparison FINDINGS: Please see procedure note for details. Fluoro time: 19.5 seconds RADIATION DOSE DELIVERED: rommel Culver=5.6 mGy
[2025-02-16 10:31] VITALS: BP 99/73; PULSE 101; RESP 20; TEMP 37; O2SAT 100
--- NOTE | 2025-02-16 10:44 | PDOC.PAIN ---
Date of service: 02/16/25 Time of Service: 11:22 Pain Managment Procedure Note Procedure Note Procedure Note: Location: Bilateral Medial Branches ? Levels: L3,4,5? (L4-5, L5-S1 FACET) ? Pre-procedure Diagnosis: M47.817 Spondylosis without myelopathy or radiculopathy, lumbosacral region M47.816 Spondylosis without myelopathy or radiculopathy, lumbar region ? Post-procedure Diagnosis:? The same as above ? Sedation: NONE? Estimated blood loss:? less than 2 cc ? Surgeon:? Charli Tillman MD COMMENT: Patient had? GREATER THAN 80% relief after the first medial branch block for greater than the duration of the local anesthetic.? Patient tells me she does have left-sided pain as well as right foot it is not as severe I think is reasonable to do bilateral blocks today. PRE PROCEDURE PAIN SCORE: 7/10 ? Procedure Detail:? The procedure and potential risks were explained to the patient and informed written consent was obtained. The patient was escorted to the procedure room and placed in the prone position. Pillows were utilized for proper positioning and comfort.? Time out was performed in procedure room with nursing staff confirming the patient's identity, procedure to be performed, allergies, and any blood thinning or anti-platelet medications. The patient's lower back was prepped with chlorhexidine and draped in a sterile fashion. Sterile technique was maintained throughout the procedure.? Sterile gloves were used, a face mask was worn, and new single dose vials of all medications were used with the top being swabbed with alcohol and given time to dry prior to withdrawal of medication.? A left and right-sided oblique fluoroscopic view was obtained, with visualization of the: ?RIGHT and LEFT L3,4 and DORSAL RAMUS L5 AT SACRAL ALA ? junction of the transverse process and superior articular process. Lidocaine 1% was used to anesthetize the skin. A 22-gauge Quincke needle was advanced along the superior margin of the transverse process and lateral to the articular process.? It was directed inferiorly and medially so that the tip struck the junction of the base of the transverse process and the superior articular process. The needle was then walked over the superior aspect of the transverse process and advanced slightly along the course of the L3,4,5 medial branch nerves. Proper placement was verified in A/P, oblique and lateral views under fluoroscopy. At this location, following negative aspiration, 0.5cc 2% lidocaine was injected.? The patient tolerated the procedure well and was discharged home with instructions. Permanent images saved and recorded. Follow-up:?? Will plan to proceed with lumbar medial branch RFA if the patient gets good relief from today's procedure lasting for at least 2 hours. COMMENT:Pain went from 7/10 to 4 /10. Before the patient left patient had 40 % pain relief. Coding Conscious Sedation used for procedure: No CPT Codes: LMBB (includes Fluoro) Lumbar/Sacral, single lvl *BILATERAL* - [id number] ([id number]~G5) LMBB (includes Fluoro) Lumbar/Sacral, 2nd lvl - 92861 ([id number] ~G) LT - LEFT SIDE, RT - RIGHT SIDE Additional Codes: Date of Service (25034) Date of service: 02/16/25 Diagnoses: M47.817 Spondylosis without myelopathy or radiculopathy, lumbosacral region M47.816 Spondylosis without myelopathy or radiculopathy, lumbar region
[2025-02-16 10:58] VITALS: PULSE 103; O2SAT 100
[2025-02-16 11:00] VITALS: PULSE 102; O2SAT 100
[2025-02-16 11:10] VITALS: PULSE 102; O2SAT 100
[2025-02-16] MEDS: Nerve Block Tray 1 EACH MC (11:22)
[2025-02-16] MEDS: Lidocaine 2% Pres-Free 5 ML VIAL IJ (11:22)
== END 2025-02-16 10:27 | disposition home or self-care (01) ==
PROVIDERS: PCP Nurse Practitioner Family; Visit Provider Anesthesiology Pain Medicine
DX: M54.50 Low back pain, unspecified (principal); M47.816 Spondylosis without myelopathy or radiculopathy, lumbar region; M47.817 Spondylosis without myelopathy or radiculopathy, lumbosacral region
CPT/HCPCS: 64493; 64494; 72100

== ENCOUNTER 2025-03-08 07:39 | Outpatient (CLI) | payer MEDICARE, MEDICAID, SELFPAY ==
[2025-03-08 07:17] VITALS: BP 100/44; PULSE 99; RESP 18; TEMP 36.3; O2SAT 100
--- NOTE | 2025-03-08 08:07 | PDOC.PAIN ---
Date of service: 03/08/25 Time of Service: 08:34 Pain Managment Procedure Note Procedure Note Procedure Note: ?Sacroiliac Joint Steroid Injection ? Location: Bilateral SI Joints? Pre-procedure Diagnosis: Sacroiliitis, not elsewhere classified - M46.1 ? Post-procedure Diagnosis:? The same as above ? Sedation:? NONE ? Medication: Depo-Medrol 40 mg, bupivacaine 0.5% 1 mL, Omnipaque 0.25 mL per joint ? Estimated blood loss:? less than 2 cc ? Surgeon:? Charli Tillman MD ? COMMENT: THIS WILL BE BOTH DIAGNOSTIC AND THERAPEUTIC . Patient had positive provocative tests 5 out of 5 ? Procedure Detail:? The procedure and potential risks were explained to the patient and informed written consent was obtained. The patient was escorted to the procedure room and placed in the prone position. Pillows were utilized for proper positioning and comfort. Time out was performed in the procedure room with nursing staff confirming the patient's identity, procedure to be performed, allergies, and any blood thinning or anti-platelet medications. The patient's lumbosacral area was prepped with ChloraPrep and draped in a sterile fashion. Sterile technique was maintained throughout the procedure.? Sterile gloves were used, a face mask was worn, and new single dose vials of all medications were used with the top being swabbed with alcohol and given time to dry prior to withdrawal of medication. Lidocaine 1% was used to anesthetize the skin. With fluoroscopic guidance, a 22-gauge 3.5 spinal needle was advanced into the posteroinferior aspect of the Bilateral SI joint. Confirmation of position of the needle tip was obtained with injection of 0.25cc of Omnipaque 240 contrast which showed appropriate spread .? Following negative aspiration, 40mg of methylprednisolone mixed with 1 mL of bupivacaine 0.5% was injected.? The needle was gently removed. ?The patient tolerated the procedure well and was discharged home with instructions.? Permanent images saved and recorded. Plan:? Follow up prn. PAIN PRE PROCEDURE 12/26 POST PROCEDURE 09/25 COMMENT: [80] % BETTER AFTER INJECTION. Pt will monitor her glucose Coding Conscious Sedation used for procedure: No CPT Codes: SI Joint Inj; incl Fluoro * BILATERAL* - [id number] ([id number]~G5) 50 - BILATERAL PROCEDURE Additional Codes: Date of Service () Diagnoses: Sacroiliitis, not elsewhere classified - M46.1
[2025-03-08 08:09] VITALS: PULSE 101; O2SAT 99
[2025-03-08 08:10] VITALS: PULSE 99; O2SAT 98
[2025-03-08 08:20] VITALS: PULSE 100; O2SAT 99
--- NOTE | 2025-03-08 08:20 | DI.RAD_ITS ---
Exam(s) XR PAIN CLINIC SACRIOILIAC 2V EXAM: XR PAIN CLINIC SACRIOILIAC 2V CLINICAL HISTORY: DX: Sacroiliac Dysfunction TECHNIQUE: 2D and realtime digital imaging was performed. CONTRAST MATERIAL: Refer to procedure report. COMPARISON: No exams were available for comparison FINDINGS: Fluoroscopy was provided for Dr. Tillman during the performance of a bilateral sacroiliac joint injections. Please refer to the procedure report for complete details. Ka,r=11.2 mGy IMPRESSION: RADIATION DOSE DELIVERED: 0.0 0.0 0
[2025-03-08 08:30] VITALS: PULSE 98
[2025-03-08] MEDS: methylPREDNISolone ACETATE 80 MG/ML VIAL IJ (08:37)
[2025-03-08] MEDS: Bupivacaine 0.5% Pres-Free 10 ML VIAL IJ (08:37)
[2025-03-08] MEDS: Omnipaque 240 MG/ML 50 ML BTL IJ (08:37)
[2025-03-08] MEDS: Nerve Block Tray 1 EACH MC (08:38)
== END 2025-03-08 07:40 | disposition home or self-care (01) ==
LOC: PC 07:39
PROVIDERS: PCP Nurse Practitioner Family; Visit Provider Anesthesiology Pain Medicine
DX: M54.50 Low back pain, unspecified (principal); M46.1 Sacroiliitis, not elsewhere classified
CPT/HCPCS: 27096; 72200; J0665; J1010; Q9967

== ENCOUNTER → 2025-03-21 09:00 | Outpatient (BNVA) | payer MEDICARE, MEDICAID, SELFPAY | PROVIDERS: PCP Nurse Practitioner Family; Referring Provider Nurse Practitioner; Visit Provider Podiatrist | DX: L97.512 Non-pressure chronic ulcer of other part of right foot with fat layer exposed (principal); L97.522 Non-pressure chronic ulcer of other part of left foot with fat layer exposed; L97.521 Non-pressure chronic ulcer of other part of left foot limited to breakdown of skin; M14.671 Charcot's joint, right ankle and foot; M79.671 Pain in right foot; E11.42 Type 2 diabetes mellitus with diabetic polyneuropathy; S93.326A Dislocation of tarsometatarsal joint of unspecified foot, initial encounter; X58.XXXA Exposure to other specified factors, initial encounter; L85.8 Other specified epidermal thickening; L60.2 Onychogryphosis; L60.8 Other nail disorders; L60.3 Nail dystrophy | CPT/HCPCS: 11042; 11721 ==

== ENCOUNTER → 2025-04-06 10:53 | Outpatient (BNVA) | payer MEDICARE, MEDICAID, SELFPAY | PROVIDERS: PCP Nurse Practitioner Family; Referring Provider Nurse Practitioner Family; Visit Provider Podiatrist | DX: L97.512 Non-pressure chronic ulcer of other part of right foot with fat layer exposed (principal); L97.522 Non-pressure chronic ulcer of other part of left foot with fat layer exposed; L97.521 Non-pressure chronic ulcer of other part of left foot limited to breakdown of skin; E11.42 Type 2 diabetes mellitus with diabetic polyneuropathy; M14.671 Charcot's joint, right ankle and foot | CPT/HCPCS: 11042; 11055; 17110 ==

== ENCOUNTER → 2025-04-06 11:56 | Outpatient (CLI) | payer MEDICARE, MEDICAID, SELFPAY ==
--- NOTE | 2025-04-06 11:49 | DI.RAD_ITS ---
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 TECHNIQUE: 2D digital imaging was performed. Three views. COMPARISON: CR XR FOOT RT COMPLETE from 11/17/2024 FINDINGS: BONES: No acute fracture is present. No bony destructive lesion is seen. JOINTS: Severe degenerative changes are again noted at the tarsal metatarsal joints. There is collapse and fragmentation consistent with Charcot foot. There is medial subluxation of the 1st cuneiform. The findings appear unchanged from the prior exam. Hammertoe deformities are also present in the 2nd through 5th toes. SOFT TISSUE: Vascular calcifications. IMPRESSION: Stable appearance of Charcot foot. DATA REPOSITORY: RADIATION DOSE DELIVERED:
--- NOTE | 2025-04-06 11:49 | DI.RAD_ITS ---
Exam(s) XR FOOT LT COMPLETE EXAM: XR FOOT LT COMPLETE CLINICAL HISTORY: chronic ulcer of foot/and toe, L97.519, M14.671. TECHNIQUE: 2D digital imaging was performed. Three views. COMPARISON: CR XR FOOT RT COMPLETE from 04/06/2025 FINDINGS: BONES: No acute fracture is present. No bony destructive lesion is seen. Small heel spurs. JOINTS: No dislocation present. [id number] degenerative changes of the inter tarsal joints. SOFT TISSUE: Vascular calcifications. Gauze is noted at the medial aspect of the foot adjacent to the navicular. IMPRESSION: No suspicious bony erosions. Degenerative changes and heel spurs. DATA REPOSITORY: RADIATION DOSE DELIVERED:
== END ==
LOC: DI 11:57
PROVIDERS: PCP Nurse Practitioner Family; Visit Provider Podiatrist
DX: S91.102A Unspecified open wound of left great toe without damage to nail, initial encounter (principal); L97.522 Non-pressure chronic ulcer of other part of left foot with fat layer exposed; L97.519 Non-pressure chronic ulcer of other part of right foot with unspecified severity; M14.671 Charcot's joint, right ankle and foot
CPT/HCPCS: 73630

== ENCOUNTER → 2025-04-20 01:18 | Outpatient (CLI) | payer MEDICARE, MEDICAID, SELFPAY ==
--- NOTE | 2025-04-20 06:45 | DI.RAD_ITS ---
Exam(s) XR TOE RT GREAT EXAM: XR TOE RT GREAT CLINICAL HISTORY: ulcer rt foot with fat layer exposed,l97.512. TECHNIQUE: 2D digital imaging was performed of the right toe. Three images were obtained. AP, oblique and lateral views were obtained. COMPARISON: CR XR FOOT RT COMPLETE from 04/06/2025 FINDINGS: BONES: No acute fracture is present. Findings are again seen of a Charcot foot. JOINTS: No dislocation present. SOFT TISSUE: Normal. IMPRESSION: There is no radiographic evidence to suggest osteomyelitis of the great toe. DATA REPOSITORY: RADIATION DOSE DELIVERED:
--- NOTE | 2025-04-20 06:45 | DI.RAD_ITS ---
Exam(s) XR TOE LT GREAT EXAM: XR TOE LT GREAT CLINICAL HISTORY: Plantar hallux ulcer lt foot with fat layer exposed,l97.522. TECHNIQUE: 2D digital imaging was performed of the left toe. Three images were obtained. AP, oblique and lateral views were obtained. COMPARISON: CR XR FOOT LT COMPLETE from 04/06/2025 FINDINGS: BONES: No acute fracture is present. No bony destructive lesion is seen. JOINTS: No dislocation present. SOFT TISSUE: There is no soft tissue gas. IMPRESSION: There is no radiographic evidence to suggest osteomyelitis seen at this time. DATA REPOSITORY: RADIATION DOSE DELIVERED:
== END ==
LOC: DI 01:18
PROVIDERS: PCP Nurse Practitioner Family; Visit Provider Podiatrist
DX: L97.512 Non-pressure chronic ulcer of other part of right foot with fat layer exposed (principal); L97.522 Non-pressure chronic ulcer of other part of left foot with fat layer exposed; L97.521 Non-pressure chronic ulcer of other part of left foot limited to breakdown of skin; E11.42 Type 2 diabetes mellitus with diabetic polyneuropathy; M14.671 Charcot's joint, right ankle and foot; G62.9 Polyneuropathy, unspecified; M20.41 Other hammer toe(s) (acquired), right foot; L84 Corns and callosities; M79.671 Pain in right foot
CPT/HCPCS: 17110; 73660

== ENCOUNTER → 2025-05-05 09:32 | Outpatient (BNVA) | payer MEDICARE, MEDICAID, SELFPAY | PROVIDERS: PCP Nurse Practitioner Family; Referring Provider Nurse Practitioner Family; Visit Provider Podiatrist | DX: M20.41 Other hammer toe(s) (acquired), right foot (principal); L02.611 Cutaneous abscess of right foot; L97.522 Non-pressure chronic ulcer of other part of left foot with fat layer exposed; L97.512 Non-pressure chronic ulcer of other part of right foot with fat layer exposed; M14.671 Charcot's joint, right ankle and foot; E11.42 Type 2 diabetes mellitus with diabetic polyneuropathy | CPT/HCPCS: 11042; 28010 ==

== ENCOUNTER 2025-05-05 09:52 | Outpatient (REF) | payer MEDICARE, MEDICAID, SELFPAY | END 2025-05-05 09:53 | disposition home or self-care (01) | LOC: LBN 09:52 | PROVIDERS: PCP Nurse Practitioner Family; Visit Provider Podiatrist | DX: L97.529 Non-pressure chronic ulcer of other part of left foot with unspecified severity (principal); L97.519 Non-pressure chronic ulcer of other part of right foot with unspecified severity | CPT/HCPCS: 87077; 87070; 87075; 87205 ==

== ENCOUNTER → 2025-05-17 10:35 | Outpatient (BNVA) | payer MEDICARE, MEDICAID, SELFPAY | PROVIDERS: PCP Nurse Practitioner Family; Referring Provider Nurse Practitioner Family; Visit Provider Podiatrist | DX: L02.611 Cutaneous abscess of right foot (principal); L97.512 Non-pressure chronic ulcer of other part of right foot with fat layer exposed; L97.522 Non-pressure chronic ulcer of other part of left foot with fat layer exposed; M14.671 Charcot's joint, right ankle and foot; E11.42 Type 2 diabetes mellitus with diabetic polyneuropathy; M20.41 Other hammer toe(s) (acquired), right foot; L60.3 Nail dystrophy; L60.2 Onychogryphosis; L60.8 Other nail disorders; L85.8 Other specified epidermal thickening | CPT/HCPCS: 11042; 11055 ==